=== PATIENT | female | born 1980 | race Caucasian/White ===

== ENCOUNTER 2022-10-14 20:31 | Observation (INO) | payer OTHER, SELFPAY ==
[2022-10-14 19:54] VITALS: BP 100/58; PULSE 70; RESP 19; TEMP 36.6; O2SAT 99; BMI 46.2
[2022-10-14 20:37] LABS: Microscopic, Urine URINE MICROSCOPIC (MICROSCOPIC)
[2022-10-14 20:45] LABS: Appearance,Urine CLEAR (Clear); Bilirubin,Urine Negative (Negative); Blood, Urine Negative (Negative); Color,Urine YELLOW (Yellow); Glucose,Urine (UA) Negative (Negative); Ketones,Urine TRACE (Negative); Leukocyte Esterase,Urine TRACE (Negative); Nitrate,Urine Negative (Negative); Protein,Urine Negative (Negative); Specific Gravity, Urine 1.025 (1.005-1.030)
--- NOTE | 2022-10-14 20:46 | XR_ITS ---
PROCEDURE INFORMATION: Exam: XR Left Knee Exam date and time: 10/14/2022 8:58 PM Age: 42 years old Clinical indication: Injury or trauma; Fall; Blunt trauma; Patient HX: Patient fell on bleachers. Left knee pain and redness. TECHNIQUE: Imaging protocol: Radiologic exam of the Left knee. Views: 1 or 2 views. COMPARISON: No relevant prior studies available. FINDINGS: Bones/joints: No fracture or dislocation. There is mild narrowing of the medial compartment. No joint effusion. Soft tissues: No radiopaque foreign body or soft tissue gas. IMPRESSION: No acute findings.
[2022-10-14 20:57] LABS: Barbiturates Screen,Urine Negative ng/ml (<200); Benzodiazepines Screen,Urine Negative ng/ml (<200)
[2022-10-14 20:58] LABS: Amphetamine/Metha Screen,Urine Negative ng/ml (<1000)
[2022-10-14 20:59] LABS: Cocaine Screen,Urine Negative ng/ml (<300); Methadone Screen,Urine Negative ng/ml (<300)
[2022-10-14 21:00] LABS: Cannabinoid Screen,Urine Negative ng/ml (<50)
[2022-10-14 21:01] LABS: Opiate Screen,Urine Negative ng/ml (<300); Phencyclidine Screen,Urine Negative ng/ml (<25)
[2022-10-14 21:49] LABS: Bacteria,Urine 1+ /lpf; Mucus,Urine 1+ /lpf; WBC,Urine Occasional #/hpf (0-3)
[2022-10-14 21:56] LABS: Basophils # 0.1 K/mm3 (0-0.2); Basophils % 1.9 % (0.1-2.0); Eosinophils # 0.1 K/mm3 (0.0-0.4); Eosinophils % 1.2 % (0.1-12.0); Hematocrit 39.2 % (37.0-47.0); Hemoglobin 12.4 g/dL (12.2-16.2); Lymphocytes # 1.3 K/mm3 (0.7-4.5); Lymphocytes % 18.5 % (10-50); Mean Corpuscular HGB Conc 31.7 g/dL (31.8-35.4); Mean Corpuscular Hemoglobin 30.6 pg (27.0-31.2); Mean Corpuscular Volume 96.6 fl (81-99); Mean Platelet Volume 8.3 fl (7.4-10.4); Monocytes # 0.4 K/mm3 (0.1-1.0); Monocytes % 6.2 % (1.7-9.3); Neutrophils # 4.9 K/mm3 (1.8-7.8); Neutrophils % 72.2 % (37.0-80.0); Platelet Count 204 K/mm3 (142-424); Red Blood Count 4.06 M/mm3 (4.20-5.40); Red Cell Distribution Width 13.6 % (11.5-17.5); White Blood Count 6.8 K/mm3 (4.8-10.8)
[2022-10-14 22:17] LABS: Coronavirus 19, PCR Not Detected (NotDetected); Influenza A, PCR Not Detected (NotDetected); Influenza B, PCR Not Detected (NotDetected)
[2022-10-14 22:28] LABS: Fetal Membrane Rupture (Rapid) Negative (Negative)
[2022-10-15 04:23] VITALS: BP 123/60; PULSE 81; RESP 19; TEMP 36.6; O2SAT 97
--- NOTE | 2022-10-15 07:00 | US_ITS ---
FINAL REPORT CLINICAL HISTORY: Fall yesterday FINDINGS: There is a single live intrauterine gestation. Presentation is breech. The cervix is closed and measures 2.76. Placenta is posterior grade 2. Amniotic fluid is 15.06 cm. Heart rate is detected at 136 beats per minute. Fetus is active. Other anatomy is seen as well. MEASUREMENTS: ULTRASOUND AGE: 31 weeks 6 days. GESTATION AGE: 31 weeks 4 days. ESTIMATED WEIGHT: 1884 g GROWTH PERCENTILE: 53 % BPD: 7.85 cm corresponding to 31 weeks 4 days. OFD: 10.29 cm corresponding to 32 weeks 0 days. HC: 28.75 cm corresponding to 31 weeks 5 days. AC: 28.58 cm corresponding to 32 weeks 5 days. FL: 6.02 cm corresponding to 31 weeks 3 days. HC/AC: 1.01 CI: 76% FL/BPD: 77% FL/AC: 21% BREATHIN MOVEMENT: 2 TONE: 2 FLUID VOLUME: 2 BPP SCORE: 6 IMPRESSION: Single living IUP with an ultrasound age of 31 weeks 6 days. BPP SCORE: 6/8 Reviewed, Interpreted and Dictated by Mando Bal MD Transcribed by Nevaeh Johnson Authenticated and [facility]
--- NOTE | 2022-10-15 07:41 | HMH.PHAINT1 ---
Pharmacy Intervention Comments: MEDICATION RECONCILIATION COMPLETED ON PATIENT USING EXTERNAL FILL HISTORY FROM PHARMACY. -FANTASMA MCDUFFIE, APTRICIAD
--- NOTE | 2022-10-15 08:53 | EXP.HPDC ---
General Admission date:: 10/14/22 Discharge date: 10/15/22 *Admission Date: 10/14/22 *Chief complaint: Fall, knee pain, decreased movement *History of present illness: Mrs. Cata Guzman is a 42 yo at 31w3d, with [place] 12/13/22, admitted to [facility] for observation secondary to fall on 10/14/22 at 1830. She is an unattached patiente. She follows with a provider in [place]. She reports she was at a basketball game and fell down to rows of bleachers to the ground below. She hit her abdomen and left knee. She admits movement was decreased after the fall. She denies vaginal bleeding. Contractions started after arrival to L&D. She received Brethine x 1 dose. She states contractions have resolved. She admits to a small amount of spotting after vaginal exam. She is now feeling baby move. Her knee is sore and bruised but she admits to full range of motion. She admits to history of gestational diabetes with last . She states she passed her 1 hr GTT this but AMAURI is high and baby's abdomen is measuring larger so she is checking her BS. She has history of x 1 and elective x 1. Denies history of PIH. She has hypothyroidism and takes Levothyroxine daily. [facility] Medical History Fall Morbid obesity with BMI of 45.0-49.9, adult contractions Surgical History History of Social History Smoking Status: Light tobacco smoker tobacco type: cigarettes (1 or 2 cigarettes per day) alcohol intake: never current occupational status: employed Travel in the last 8 weeks: None Review of Systems Review of Systems Review of systems:: pertinent systems reviewed and negative unless documented below *Gastrointestinal Comments: + contractions Exam Data for Last 24 hours Vital signs and Labs for Last 24 Hours: Temp Pulse Resp BP Pulse Ox 97.9 F 81 19 123/60 97 10/15/22 04:23 10/15/22 04:23 10/15/22 04:23 10/15/22 04:23 10/15/22 04:23 Laboratory Results - last 24 hr 10/14/22 19:56: Urine Color Yellow, Urine Appearance Clear, Urine pH 7.0, Ur Specific [place] 1.025, Urine Protein Negative, Urine Glucose (UA) Negative, Urine Ketones Trace, Urine Blood Negative, Urine Nitrate Negative, Urine Bilirubin Negative, Urine Urobilinogen 2.0, Ur Leukocyte Esterase Trace, Urine WBC Occasional, Ur Squamous Epith Cells 3-5, Urine Bacteria 1+, Urine Mucus 1+ 10/14/22 19:56: Urine Opiates Screen Negative, Urine Methadone Screen Negative, Ur Barbituates Screen Negative, Ur Phencyclidine Scrn Negative, Ur Amphetamines Screen Negative, U Benzodiazepines Scrn Negative, Urine Cocaine Screen Negative, U Marijuana (THC) Screen Negative 10/14/22 21:37: WBC 6.8, RBC 4.06 L, Hgb 12.4, Hct 39.2, MCV 96.6, MCH 30.6, MCHC 31.7 L, RDW 13.6, Plt Count 204, MPV 8.3, Neut % (Auto) 72.2, Lymph % (Auto) 18.5, [place] % (Auto) 6.2, Eos % (Auto) 1.2, Baso % (Auto) 1.9, Neut # (Auto) 4.9, Lymph # (Auto) 1.3, [place] # (Auto) 0.4, Eos # (Auto) 0.1, Baso # (Auto) 0.1 10/14/22 21:52: Membrane Rupture Negative 10/14/22 21:52: SARS-CoV-2 (PCR) Not detected, Influenza A Untype (PCR) Not detected, Influenza Type B (PCR) Not detected I & O for Last 24 hours: Intake & Output 10/12/22 10/13/22 10/14/22 10/15/22 23:59 23:59 23:59 23:59 Weight 278 lb Constitutional Constitutional: no acute distress, morbidly obese and cooperative *Routine HEENT Exam Head: Present normocephalic and atraumatic Eye: Absent conjunctivae pink ENT: Present mucous membranes moist *Routine Neck Exam Neck: Present full ROM *Routine Respiratory Exam Respiratory: Present CTA bilaterally and normal respiratory effort *Routine Cardiovascular Exam Cardiovascular: Present RRR *Routine Abdominal Exam Abdominal: Present soft (Gravid) and obese; Absent tend
== END 2022-10-15 11:16 | disposition home or self-care (01) ==
LOC: OBOUT 20:36 → OB 10-15 03:32
PROVIDERS: Admitting Provider Obstetrics & Gynecology; Visit Provider Obstetrics & Gynecology
DX: O36.8130 Decreased fetal movements, third trimester, not applicable or unspecified (principal); Z3A.31 31 weeks gestation of pregnancy; W10.8XXA Fall (on) (from) other stairs and steps, initial encounter; Y92.39 Other specified sports and athletic area as the place of occurrence of the external cause; O24.415 Gestational diabetes mellitus in pregnancy, controlled by oral hypoglycemic drugs
CPT/HCPCS: 59025; 73560; 76819; 80305; 81001; 84112; 85025; 96360; 96361; 96372; C9803; G0378; U0003; U0005

== ENCOUNTER 2023-04-27 10:29 | Emergency (ER) | payer OTHER, SELFPAY ==
[2023-04-27 10:30] VITALS: BP 140/98; PULSE 99; RESP 16; TEMP 36.8; O2SAT 100; BMI 41.3
[2023-04-27 10:50] LABS: Apearance,Urine Clear (Clear); Blood, Urine Trace (Negative); Color,Urine Yellow (Yellow); Glucose,Urine (UA) Negative (Negative); Ketones,Urine Negative (Negative); Protein,Urine Negative (Negative); Specific Gravity, Urine 1.015 (1.005-1.030)
[2023-04-27 10:51] LABS: Bilirubin,Urine Negative (Negative); UTC Leukocyte Esterase,Urine Negative (Negative); UTC Nitrate,Urine Negative (Negative); Urobilinogen,Urine 0.2 EU/dl (0.2)
--- NOTE | 2023-04-27 10:51 | EXP.UTC ---
Discharge Plan Disposition Patient Disposition: Home, Self-Care Condition: Good Prescriptions Prescriptions: New nitrofurantoin monohyd/m-cryst [Macrobid] 100 mg capsule 100 mg PO Q12H 5 Days Qty: 10 0RF Rx Instructions: must administer with a meal/food phenazopyridine [Pyridium] 200 mg tablet 200 mg PO Q8H 2 Days Qty: 6 0RF No Action metformin 500 mg tablet 500 mg PO BID pantoprazole 20 mg tablet,delayed release (DR/EC) 20 mg PO DAILY trazodone 150 mg tablet 75 mg PO HSP PRN (Reason: Sleep) aspirin 81 mg Capsule 81 mg PO DAILY fluoxetine 40 mg capsule 40 mg PO DAILY levothyroxine 88 mcg tablet 88 mcg PO DAILY hydroxyzine pamoate 25 mg capsule 25 mg PO HSP PRN (Reason: Sleep) PNV cmb#95-ferrous fumarate-FA [] 28 mg iron- 800 mcg Tablet 1 tab PO DAILY Referrals Follow up/Referrals: Angi Berry APRN [Primary Care Provider] - See instructions Activity Restrictions/Add. Instructions Additional Instructions/Restrictions: *Increase fluids. Water not Soda or Tea *Start antibiotic immediately and be sure to take as ordered for the FULL length of time although you should start to see improvement over the next 48 hours *Pyridium as needed Remember this medication will turn your urine . This is normal but it will stain what ever it gets on *You should not use Pyridium for more than 48 hours. If so , follow up with your primary physician to review urine culture and ensure that antibiotic is adequate for infection *Be SURE to follow up anytime for new or worsening symptoms with your family doctor. AND in 48 hours for urine culture results with your family doctor, if you do not have a doctor then you may call back to the [facility] for urine culture results and further treatment. We do recommend that you choose and establish care with a Primary Care Physician. ?AND follow up with them ?in 10-14 days to repeat UA to ensure infection is resolved and blood no longer present *Be sure to let your PCP know that we sent urine cultures from the [facility] so they can follow up to ensure that you area the on the correct antibiotic Call your doctor office and make appointment for 48 hours (2 days from today) ?to follow up and get the results of your urine culture and further treatment Clinical Impressions Clinical Impression: UTI symptoms Instructions Patient Instructions: Nitrofurantoin, Phenazopyridine Discharge ED Provider: Shonda Murphy [facility] [place] HPI General Stated complaint: burning sensatiom when urinating Mode of Arrival: Ambulatory Source of Information: Patient Limitations: No Limitations Time Seen by Provider: 04/27/23 10:52 Description of Symptoms (Recalled from Triage Doc. by RN): Patient reports uti symptoms. Complaint of burning and pressure when urinating. HEENT Symptoms (Recalled from RN notes): No Resp Symptoms (Recalled from RN notes): No Skin Symptoms (Recalled from RN notes): No MS Symptoms (Recalled from RN notes): No Functional Status (Recalled from RN notes): wnl History of Present Illness Provider Complaint: Patient states that she use to get UTI frequently but hasnt had one in a while States that she has been having urgency and frequency for several days and woke up this morning with burning with urination and feels like it does when she has UTI and wanted to get it treated before it got too bad Related Data Home Medications Medication Instructions Recorded Confirmed metformin 500 mg tablet 500 mg PO BID Diabetes 08/26/21 10/15/22 aspirin 81 mg capsule 81 mg PO DAILY HEART HEALTH 10/14/22 10/14/22 pantoprazole 20 mg tablet,delayed 20 mg PO DAILY GERD 10/14/22 10/14/22 release trazodone 150 mg tablet 75 mg PO HSP PRN Sleep 10/14/22 10/15/22 fluoxetine 40 mg capsule 40 mg PO DAILY MOOD 10/15/22 10/15/22 hydroxyzine pamoate 25 mg capsule 25 mg PO HSP PRN Sleep 10/15/22 10/15/22 levothyroxine 88 mcg tablet 88 mcg PO DAILY THYROID 10/15/22 10/15/22
[2023-04-27 11:02] VITALS: BP 140/98; PULSE 99; RESP 16; TEMP 36.8; O2SAT 100
== END 2023-04-27 11:03 | disposition home or self-care (01) ==
PROVIDERS: Emergency Provider Nurse Practitioner; PCP Nurse Practitioner Family
DX: R30.0 Dysuria (principal); R35.0 Frequency of micturition; R39.15 Urgency of urination; E66.01 Morbid (severe) obesity due to excess calories; F17.210 Nicotine dependence, cigarettes, uncomplicated
CPT/HCPCS: 81003; 87086; 99204; 99212; G0463

== ENCOUNTER 2023-07-17 17:12 | Emergency (ER) | payer OTHER, SELFPAY ==
[2023-07-17 17:45] VITALS: BP 128/94; PULSE 70; RESP 14; TEMP 36.7; O2SAT 95; BMI 39.5
--- NOTE | 2023-07-17 18:11 | EXP.UTC ---
Discharge Plan Disposition Patient Disposition: Home, Self-Care Condition: Good Prescriptions Prescriptions: New cefdinir 300 mg capsule 300 mg PO BID Qty: 20 0RF phenazopyridine [Pyridium] 200 mg tablet 200 mg PO Q8H 2 Days Qty: 6 0RF No Action metformin 500 mg tablet 500 mg PO BID pantoprazole 20 mg tablet,delayed release (DR/EC) 20 mg PO DAILY trazodone 150 mg tablet 75 mg PO HSP PRN (Reason: Sleep) aspirin 81 mg Capsule 81 mg PO DAILY fluoxetine 40 mg capsule 40 mg PO DAILY levothyroxine 88 mcg tablet 88 mcg PO DAILY hydroxyzine pamoate 25 mg capsule 25 mg PO HSP PRN (Reason: Sleep) PNV cmb#95-ferrous fumarate-FA [] 28 mg iron- 800 mcg Tablet 1 tab PO DAILY nitrofurantoin monohyd/m-cryst [Macrobid] 100 mg capsule 100 mg PO Q12H 5 Days Qty: 10 0RF Rx Instructions: must administer with a meal/food phenazopyridine [Pyridium] 200 mg tablet 200 mg PO Q8H 2 Days Qty: 6 0RF Referrals Follow up/Referrals: Angi Berry APRN [Primary Care Provider] - See instructions Activity Restrictions/Add. Instructions Additional Instructions/Restrictions: Stop macrobid and start the Cefdinir *Increase fluids. Water not Soda or Tea *Start antibiotic immediately and be sure to take as ordered for the FULL length of time although you should start to see improvement over the next 48 hours *Pyridium as needed Remember this medication will turn your urine . This is normal but it will stain what ever it gets on *You should not use Pyridium for more than 48 hours. If so , follow up with your primary physician to review urine culture and ensure that antibiotic is adequate for infection *Be SURE to follow up anytime for new or worsening symptoms with your family doctor. AND in 48 hours for urine culture results with your family doctor, if you do not have a doctor then you may call back to the [facility] for urine culture results and further treatment. We do recommend that you choose and establish care with a Primary Care Physician. ?AND follow up with them ?in 10-14 days to repeat UA to ensure infection is resolved and blood no longer present *Be sure to let your PCP know that we sent urine cultures from the [facility] so they can follow up to ensure that you area the on the correct antibiotic Call your doctor office and make appointment for 48 hours (2 days from today) ?to follow up and get the results of your urine culture and further treatment Clinical Impressions Clinical Impression: UTI (urinary tract infection) Qualifiers: Urinary tract infection type: site unspecified Hematuria presence: with hematuria Qualified Code(s): N39.0 - Urinary tract infection, site not specified; R31.9 - Hematuria, unspecified Stand Alone Forms Stand Alone Forms: Work/School Release Instructions Patient Instructions: DI for Urinary Tract Infection (UTI), Cefdinir Discharge ED Provider: Shonda Murphy [facility] [place] General Stated complaint: painful urination Mode of Arrival: Ambulatory Source of Information: Patient Limitations: No Limitations Time Seen by Provider: 07/17/23 18:11 Description of Symptoms (Recalled from Triage Doc. by RN): PATIENT C/O BURNING AND DISCOMFORT TO VAGINAL AREA HEENT Symptoms (Recalled from RN notes): No Resp Symptoms (Recalled from RN notes): No Skin Symptoms (Recalled from RN notes): No MS Symptoms (Recalled from RN notes): No Functional Status (Recalled from RN notes): WNL History of Present Illness Provider Complaint: Patient states that she has been having itching and burning in her vaginal area State that she is on nitrofurantoin for UTI and she has taken two diflucan but still having itching and burning in her vaginal area Related Data Home Medications Medication Instructions Recorded Confirmed metformin 500 mg tablet 500 mg PO BID Diabetes 08/26/21 10/15/22 aspirin 81 mg capsule 81 mg PO DAILY HEART HEALTH 10/14/22 10/14/22 yessy
[2023-07-17 18:32] LABS: Microscopic, Urine URINE MICROSCOPIC (MICROSCOPIC)
[2023-07-17 18:46] VITALS: BP 128/94; PULSE 70; RESP 14; TEMP 36.7; O2SAT 95
[2023-07-17 18:51] LABS: Appearance,Urine Cloudy (Clear); Blood, Urine 1+ (Negative); Color,Urine Yellow (Yellow); Glucose,Urine (UA) Negative (Negative); Ketones,Urine Trace (Negative); Nitrate,Urine Negative (Negative); Protein,Urine 1+ (Negative)
[2023-07-17 18:52] LABS: Bilirubin,Urine 1+ (Negative); Leukocyte Esterase,Urine 1+ (Negative)
[2023-07-17 18:54] LABS: Bacteria,Urine Trace /lpf; RBC,Urine Occasional #/hpf (0-3); WBC,Urine Occasional #/hpf (0-3)
== END 2023-07-17 18:49 | disposition home or self-care (01) ==
PROVIDERS: Emergency Provider Nurse Practitioner; PCP Nurse Practitioner Family
DX: N39.0 Urinary tract infection, site not specified (principal); R31.9 Hematuria, unspecified; F17.210 Nicotine dependence, cigarettes, uncomplicated; E66.01 Morbid (severe) obesity due to excess calories; Z68.42 Body mass index [BMI] 45.0-49.9, adult
CPT/HCPCS: 81001; 87086; 99212; 99214; G0463

== ENCOUNTER 2024-01-11 07:14 | Emergency (ER) | payer BC, SELFPAY ==
[2024-01-11] VITALS (7 sets, daily range): BP systolic 99–139; BP diastolic 47–88; PULSE 100–118; RESP 17–20; TEMP 36.6–36.7; O2SAT 94–98; BMI 43.2
--- NOTE | 2024-01-11 07:16 | ECG_ITS ---
APPROVED REPORT Exam: Resting ECG HR:104 bpm ECG Measurements Heart Rate 104 AXES GA 155 P 56 QRSd 85 QRS 0 QT 339 T 54 QTc 399 Conclusion SINUS TACHYCARDIA MINIMAL VOLTAGE CRITERIA FOR LVH, CONSIDER NORMAL VARIANT [MEETS CRITERIA IN ONE OF: R(aVL), S(V1), R(V5), R(V5/V6)+S(V1)] ABNORMAL RHYTHM ECG UNCONFIRMED REPORT Electronically signed by : Duane Alonso MD 01/11/2024 19:59:56
--- NOTE | 2024-01-11 07:19 | HMH.EDGENADL ---
Discharge Plan Disposition Patient Disposition: Home, Self-Care Condition: Good Prescriptions Prescriptions: New dexamethasone 6 mg tablet 6 mg PO ONCE Qty: 1 0RF oseltamivir [Tamiflu] 75 mg capsule 75 mg PO DAILY 35 Days Qty: 35 0RF albuterol sulfate 90 mcg/actuation HFA aerosol inhaler 4 inh inhalation Q4H PRN (Reason: shortness of breath or wheezing) Qty: 8.5 0RF Rx Instructions: until breathing returns to target peak flow/parameters No Action metformin 500 mg tablet 500 mg PO BID cefdinir 300 mg capsule 300 mg PO BID Qty: 20 0RF phenazopyridine [Pyridium] 200 mg tablet 200 mg PO Q8H 2 Days Qty: 6 0RF pantoprazole 20 mg tablet,delayed release (DR/EC) 20 mg PO DAILY trazodone 150 mg tablet 75 mg PO HSP PRN (Reason: Sleep) aspirin 81 mg Capsule 81 mg PO DAILY fluoxetine 40 mg capsule 40 mg PO DAILY levothyroxine 88 mcg tablet 88 mcg PO DAILY hydroxyzine pamoate 25 mg capsule 25 mg PO HSP PRN (Reason: Sleep) PNV cmb#95-ferrous fumarate-FA [] 28 mg iron- 800 mcg Tablet 1 tab PO DAILY nitrofurantoin monohyd/m-cryst [Macrobid] 100 mg capsule 100 mg PO Q12H 5 Days Qty: 10 0RF Rx Instructions: must administer with a meal/food phenazopyridine [Pyridium] 200 mg tablet 200 mg PO Q8H 2 Days Qty: 6 0RF Referrals Follow up/Referrals: Pearl Hernandez APRN [Primary Care Provider] - See instructions Activity Restrictions/Add. Instructions Additional Instructions/Restrictions: Please return to the emergency department if you experience any new or worsening symptoms. Clinical Impressions Clinical Impression: Influenza Stand Alone Forms Stand Alone Forms: Work/School Release Discharge ED Provider: Javed Giordano General Adult HPI General Chief complaint: Shortness of Breath/Dyspnea Stated complaint: chest pain Time Seen by Provider: 01/11/24 07:22 History of Present Illness HPI narrative: Patient reports shortness of breath, fevers, sore throat, discomfort on her chest wall with coughing, later describes this more as substernal however nonradiating chest pain. Has not had similar symptoms in the past. Has exposures both to COVID and influenza. Has had decreased p.o. intake due to lack of appetite but no nausea or vomiting. No abdominal pain. No leg pain or leg swelling. No OCP use. Patient is a smoker but is felt too ill to smoke. Pain is nonpleuritic. Symptoms began 24 hours ago Related Data Home Medications Medication Instructions Recorded Confirmed metformin 500 mg tablet 500 mg PO BID Diabetes 08/26/21 10/15/22 aspirin 81 mg capsule 81 mg PO DAILY HEART HEALTH 10/14/22 10/14/22 pantoprazole 20 mg tablet,delayed 20 mg PO DAILY GERD 10/14/22 10/14/22 release trazodone 150 mg tablet 75 mg PO HSP PRN Sleep 10/14/22 10/15/22 fluoxetine 40 mg capsule 40 mg PO DAILY MOOD 10/15/22 10/15/22 hydroxyzine pamoate 25 mg capsule 25 mg PO HSP PRN Sleep 10/15/22 10/15/22 levothyroxine 88 mcg tablet 88 mcg PO DAILY THYROID 10/15/22 10/15/22 vit no.95-ferrous 1 tab PO DAILY Supplement 10/15/22 10/15/22 fumarate 28 mg-folic acid 800 mcg tablet () Previous Rx's Medication Instructions Recorded nitrofurantoin 100 mg PO Q12H 5 days #10 caps 04/27/23 monohydrate/macrocrystals 100 mg capsule (Macrobid) phenazopyridine 200 mg tablet 200 mg PO Q8H pain 2 days #6 tabs 04/27/23 (Pyridium) cefdinir 300 mg capsule 300 mg PO BID #20 caps 07/17/23 phenazopyridine 200 mg tablet 200 mg PO Q8H pain 2 days #6 tabs 07/17/23 (Pyridium) albuterol sulfate 90 mcg/actuation 4 inh inhalation Q4H PRN shortness 01/11/24 aerosol inhaler of breath or wheezing #8.5 grams dexamethasone 6 mg tablet 6 mg PO ONCE #1 tab 01/11/24 oseltamivir 75 mg capsule (Tamiflu) 75 mg PO DAILY 5 weeks #35 caps 01/11/24 Allergies Allergy/AdvReac Type Severity Reaction Status Date / Time No Known Allergies Allergy Verified 01/11/24 07:32 [facility] Disclaimer: The information contained in this section may have been updated after the patient was seen, as this information can be updated by other users. Medical History Fall Morbid obesity with BMI of 45.0-49.9, adult contractions Surgical History History of Social History Smoking Status: Current every day smoker tobacco type: cigarettes (1 or 2 cigarettes per day) alcohol intake: never current occupational status: employed Travel in the last 8 weeks: None ROS Obtained: Yes Systems reviewed as appropriate & no additional complaints except as documented As per HPI Physical Exam General General appearance: alert Comment: Uncomfortable appearing but nontoxic, tearful Head Head exam: atraumatic and normocephalic Eye Eye exam: Present normal appearance Neck Neck exam: Present normal inspection Chest Chest inspection: Present normal inspection and symmetric chest wall rise Respiratory Respiratory exam: Present normal lung sounds bilaterally; Absent respiratory distress Cardiovascular Cardiovascular exam: Present regular rate and normal rhythm Abdominal Exam Abdominal exam: Present soft Neurological Exam Neurological exam: Present alert and oriented X3 Psychiatric Psychiatric exam: Present normal affect and normal mood Skin Skin exam: Present warm and dry Medical Decision Making Medical Records Medical records reviewed: Yes I reviewed the patient's medical records. Anshul Inquiry Pt receiving controlled substance: No Vital Signs: 01/11/24 07:20 01/11/24 08:31 01/11/24 09:01 Temperature 98 F Temperature Source Oral Pulse Rate 101 H 118 H Pulse Rate [Right] 101 H Respiratory Rate 18 20 Blood Pressure 139/88 121/81 Blood Pressure [Right Arm] 133/73 Blood Pressure Mean 92 Blood Pressure Mean [Right Arm] 93 Blood Pressure Source [Right Arm] Automatic Cuff Blood Pressure Position [Right Arm] Sitting 02 Sat by Pulse Oximetry 98 96 94 L Oxygen Delivery Method Room Air Room Air 01/11/24 09:34 01/11/24 10:01 01/11/24 10:30 Temperature Temperature Source Pulse Rate 110 H 107 H 103 H Pulse Rate [Right] Respiratory Rate 20 20 20 Blood Pressure 132/83 99/47 L 118/84 Blood Pressure [Right Arm] Blood Pressure Mean 95 64 95 Blood Pressure Mean [Right Arm] Blood Pressure Source [Right Arm] Blood Pressure Position [Right Arm] 02 Sat by Pulse Oximetry 96 98 97 Oxygen Delivery Method 01/11/24 11:13 Temperature 98.0 F Temperature Source Pulse Rate 100 H Pulse Rate [Right] Respiratory Rate 17 Blood Pressure 114/73 Blood Pressure [Right Arm] Blood Pressure Mean Blood Pressure Mean [Right Arm] Blood Pressure Source [Right Arm] Blood Pressure Position [Right Arm] 02 Sat by Pulse Oximetry Oxygen Delivery Method Lab Data Lab Results 01/11/24 07:18: WBC 5.2, RBC 4.53, Hgb 14.4, Hct 44.6, MCV 98.4, MCH 31.7 H, MCHC 32.2, RDW 13.8, Plt Count 177, MPV 7.7, Neut % (Auto) 83.8 H, Lymph % (Auto) 8.0 L, [place] % (Auto) 7.4, Eos % (Auto) 0.4, Baso % (Auto) 0.3, Neut # (Auto) 4.4, Lymph # (Auto) 0.4 L, [place] # (Auto) 0.4, Eos # (Auto) 0.0, Baso # (Auto) 0.0, D-Dimer 0.39, Sodium 138, Potassium 4.0, Chloride 107, Carbon Dioxide 24, Anion Gap 11.0, BUN 8, Creatinine 0.60, Estimated Creat Clear 111, Estimated GFR 110, Est GFR ( Amer) 133, Glucose 159 H, Calcium 8.5, Total Bilirubin 0.5, AST 49 H, ALT 60, Alkaline Phosphatase 62, Troponin I < 0.01, Total Protein 6.9, Albumin 4.2, Globulin 2.7, Albumin/Globulin Ratio 1.6, Lipase 47 01/11/24 07:20: SARS-CoV-2 (PCR) Not detected, Influenza A Untype (PCR) Detected A, Influenza Type B (PCR) Not detected 01/11/24 09:18: Troponin I < 0.01 01/11/24 07:18 01/11/24 07:18 Orders (Tests/Meds): ED MEDICATIONS Discontinued Medications Generic Name Dose Route Start Last Admin Trade Name Freq PRN Reason Stop Dose Admin Albuterol/Ipratropium 3 ml 01/11/24 07:33 01/11/24 07:56 Ipratropium/Albuterol 3 Ml Neb IH 01/11/24 07:34 3 ml ONCE ONE Administration Belladonna Alkaloids 60 ml 01/11/24 07:56 01/11/24 08:35 Belladonna Alkaloids 60 Ml Ml PO 01/11/24 07:57 60 ml ONCE ONE Administration Lactated Ringer's 1,000 mls @ 999 mls/hr 01/11/24 07:33 01/11/24 07:56 Lactated Ringer's 1000 Ml Bag IV 01/11/24 08:33 999 mls/hr .Q1H1M ONE Administration Ketorolac Tromethamine 15 mg 01/11/24 07:33 01/11/24 07:56 Ketorolac 30mg/Ml Vial IV 01/11/24 07:34 15 mg ONCE ONE Administration Ondansetron HCl 4 mg 01/11/24 07:33 01/11/24 07:56 Ondansetron 4mg/2ml Vial IV 01/11/24 07:34 4 mg ONCE ONE Administration ORDERS Category Date Time Status XR chest 2V Stat Exams 01/11/24 07:34 Completed CBC w/Auto Diff [Complete Blood Count Auto Diff] Stat Lab 01/11/24 07:18 Completed CMP [Comprehensive Metabolic Panel] Stat Lab 01/11/24 07:18 Completed D-Dimer Stat Lab 01/11/24 07:18 Completed Lipase Stat Lab 01/11/24 07:18 Completed Rapid PCR Covid and Flu A/B Stat Lab 01/11/24 07:20 Completed Troponin I Q2H Lab 01/11/24 07:18 Completed Troponin I Q2H Lab 01/11/24 09:18 Completed ECG initial [place] Routine Y 01/11/24 07:16 Completed HEART Score History (anamnesis): Slightly suspicious ECG: Non-specific disturbance Age: <45 years Risk factors: 1-2 risk factors Troponin: </= normal limit HEART Score: 2 Medical Decision Narrative: Patient with history and exam per above presenting for evaluation of shortness of breath, chest wall discomfort, upper respiratory symptoms Diagnoses considered include ACS, PE, pneumonia, GERD, costochondritis, upper respiratory infection ED workup and treatment included: ED MEDICATIONS Discontinued Medications Generic Name Dose Route Start Last Admin Trade Name Freq PRN Reason Stop Dose Admin Albuterol/Ipratropium 3 ml 01/11/24 07:33 01/11/24 07:56 Ipratropium/Albuterol 3 Ml Neb 01/11/24 07:34 3 ml ONCE ONE Administration Belladonna Alkaloids 60 ml 01/11/24 07:56 01/11/24 08:35 Belladonna Alkaloids 60 Ml Ml PO 01/11/24 07:57 60 ml ONCE ONE Administration Lactated Ringer's 1,000 mls @ 999 mls/hr 01/11/24 07:33 01/11/24 07:56 Lactated Ringer's 1000 Ml Bag IV 01/11/24 08:33 999 mls/hr .Q1H1M ONE Administration Ketorolac Tromethamine 15 mg 01/11/24 07:33 01/11/24 07:56 Ketorolac 30mg/Ml Vial IV 01/11/24 07:34 15 mg ONCE ONE Administration Ondansetron HCl 4 mg 01/11/24 07:33 01/11/24 07:56 Ondansetron 4mg/2ml Vial IV 01/11/24 07:34 4 mg ONCE ONE Administration ORDERS Category Date Time Status XR chest 2V Stat Exams 01/11/24 07:34 Completed CBC w/Auto Diff [Complete Blood Count Auto Diff] Stat Lab 01/11/24 07:18 Completed CMP [Comprehensive Metabolic Panel] Stat Lab 01/11/24 07:18 Completed D-Dimer Stat Lab 01/11/24 07:18 Completed Lipase Stat Lab 01/11/24 07:18 Completed Rapid PCR Covid and Flu A/B Stat Lab 01/11/24 07:20 Completed Troponin I Q2H Lab 01/11/24 07:18 Completed Troponin I Q2H Lab 01/11/24 09:18 Completed ECG initial [place] Routine Y 01/11/24 07:16 Completed Labs were independently interpreted by me, significant for influenza positive, D-dimer within normal limits, troponins undetectable x 2 Patient's EKG was independently visualized and interpreted by me significant for normal sinus rhythm, normal axis, no acute ST changes Imaging was independently visualized and interpreted by me, significant for no acute consolidative process. Please refer to radiology report for full details. My clinical impression at this time is most consistent with influenza Patient reported improvement of symptoms upon repeat evaluation. Will be prescribed Tamiflu after shared decision making I discussed my clinical impression with patient and answered all questions. At this time, the evidence for any other entities in the differential is insufficient to warrant any further testing or ED observation. This was explained to the patient. The patient was advised that persistent or worsening symptoms require further evaluation. I confirmed the patient's understanding of this discussion. Critical Care Critical Care Time Critical Care Time: No
--- NOTE | 2024-01-11 07:34 | XR_ITS ---
FINAL REPORT CLINICAL HISTORY: soa, cough, pain with coughing, smoker, COMPARISON: None FINDINGS: PA and lateral views of the chest were obtained. There is no prior exam for comparison. The cardiac and mediastinal silhouettes are within normal limits. The lungs are clear. There is no pleural effusion or pneumothorax. No acute osseous abnormality is identified. IMPRESSION: No radiographic evidence of acute cardiac or pulmonary disease. Reviewed, Interpreted and Dictated by Mercy Ramirez MD Transcribed by Fadumo Hill Authenticated and [facility]
[2024-01-11 07:38] LABS: Coronavirus 19, PCR Not Detected (NotDetected); Influenza B, PCR Not Detected (NotDetected)
[2024-01-11] MEDS: IPRATROPIUM/ALBUTEROL 3 ML NEB IH (07:56)
[2024-01-11] MEDS: KETOROLAC 30MG/ML VIAL 15 MG IV (07:56)
[2024-01-11] MEDS: LACTATED RINGERS 1000ML 1,000 ML 999 ML IV (07:56)
[2024-01-11] MEDS: ONDANSETRON 4MG/2ML VIAL 4 MG IV (07:56)
[2024-01-11 08:09] LABS: Alanine Aminotransferase 60 U/L (12-78); Albumin Level 4.2 g/dl (3.5-5.0); Albumin/Globulin Ratio 1.6 (1.1-1.8); Alkaline Phosphatase 62 U/L (38-126); Aspartate Amino Transferase 49 U/L (14-36); Bilirubin,Total 0.5 mg/dl (0.2-1.3); Blood Urea Nitrogen 8 mg/dl (7-17); Calcium 8.5 mg/dl (8.4-10.2); Carbon Dioxide 24 mmol/L (22.0-30.0); Chloride 107 mmol/L (98-107); Creatinine Clearance Estimated 111 mL/min (50-200); Estimated Glomerular Filt Rate 110 ml/min (>60); GFR (African American) 133 ML/MIN (>60); Globulin 2.7 g/dL (1.3-3.2); Glucose 159 mg/dl (74-100); Lipase 47 U/L (23-300); Sodium 138 mmol/L (136-145); Total Protein,Serum 6.9 g/dl (6.3-8.2)
[2024-01-11 08:12] LABS: Basophils % 0.3 % (0.1-2.0); Eosinophils % 0.4 % (0.1-12.0); Hematocrit 44.6 % (37.0-47.0); Hemoglobin 14.4 g/dL (12.2-16.2); Lymphocytes # 0.4 K/mm3 (0.7-4.5); Mean Corpuscular HGB Conc 32.2 g/dL (31.8-35.4); Mean Corpuscular Hemoglobin 31.7 pg (27.0-31.2); Mean Corpuscular Volume 98.4 fl (81-99); Mean Platelet Volume 7.7 fl (7.4-10.4); Monocytes # 0.4 K/mm3 (0.1-1.0); Monocytes % 7.4 % (1.7-9.3); Neutrophils # 4.4 K/mm3 (1.8-7.8); Neutrophils % 83.8 % (37.0-80.0); Platelet Count 177 K/mm3 (142-424); Red Blood Count 4.53 M/mm3 (4.20-5.40); Red Cell Distribution Width 13.8 % (11.5-17.5); White Blood Count 5.2 K/mm3 (4.8-10.8)
[2024-01-11 08:14] LABS: D-Dimer 0.39 ug/mL (0.0-0.5)
[2024-01-11 08:14] LABS: Influenza A, PCR Detected (NotDetected)
[2024-01-11 08:29] LABS: Troponin I < 0.01 ng/ml (0.00-0.034)
[2024-01-11] MEDS: BELLADONNA ALKALOIDS 60 ML ML PO (08:35)
--- NOTE | 2024-01-11 08:41 | PC.NURSE ---
Pt resting in bed. No needs or complaints voiced at this time. Call light within reach.
[2024-01-11 10:03] LABS: Troponin I < 0.01 ng/ml (0.00-0.034)
== END 2024-01-11 11:15 | disposition home or self-care (01) ==
PROVIDERS: Emergency Provider Emergency Medicine; PCP Nurse Practitioner
DX: J10.1 Influenza due to other identified influenza virus with other respiratory manifestations (principal); R07.89 Other chest pain; R06.02 Shortness of breath; R07.0 Pain in throat; R50.9 Fever, unspecified; R05.9 Cough, unspecified; F17.210 Nicotine dependence, cigarettes, uncomplicated
CPT/HCPCS: 71046; 80053; 83690; 84484; 85025; 85378; 87636; 93005; 96361; 96374; 96375; 99285; J2405

== ENCOUNTER 2025-09-03 19:03 | Emergency (ER) | payer SELFPAY ==
[2025-09-03 19:09] VITALS: BP 169/105; PULSE 95; RESP 18; TEMP 37.1; O2SAT 100; BMI 36.6
--- NOTE | 2025-09-03 19:17 | HMH.EDGENADL ---
Discharge Plan Disposition Patient Disposition: Home, Self-Care Condition: Good Prescriptions Prescriptions: New hydrocodone-acetaminophen 5-325 mg tablet 1 tab PO Q8H PRN (Reason: pain (scale score 7-10)) Qty: 3 0RF No Action metformin 500 mg tablet 500 mg PO BID cefdinir 300 mg capsule 300 mg PO BID Qty: 20 0RF phenazopyridine [Pyridium] 200 mg tablet 200 mg PO Q8H 2 Days Qty: 6 0RF pantoprazole 20 mg tablet,delayed release (DR/EC) 20 mg PO DAILY trazodone 150 mg tablet 75 mg PO HSP PRN (Reason: Sleep) aspirin 81 mg Capsule 81 mg PO DAILY fluoxetine 40 mg capsule 40 mg PO DAILY levothyroxine 88 mcg tablet 88 mcg PO DAILY hydroxyzine pamoate 25 mg capsule 25 mg PO HSP PRN (Reason: Sleep) PNV no.95-ferrous fumarate-FA [] 28 mg iron- 800 mcg Tablet 1 tab PO DAILY nitrofurantoin monohyd/m-cryst [Macrobid] 100 mg capsule 100 mg PO Q12H 5 Days Qty: 10 0RF Rx Instructions: must administer with a meal/food phenazopyridine [Pyridium] 200 mg tablet 200 mg PO Q8H 2 Days Qty: 6 0RF dexamethasone 6 mg tablet 6 mg PO ONCE Qty: 1 0RF oseltamivir [Tamiflu] 75 mg capsule 75 mg PO DAILY 35 Days Qty: 35 0RF albuterol sulfate 90 mcg/actuation HFA aerosol inhaler 4 inh inhalation Q4H PRN (Reason: shortness of breath or wheezing) Qty: 8.5 0RF Rx Instructions: until breathing returns to target peak flow/parameters Referrals Follow up/Referrals: Rosalee Duran DO [Staff Physician, JEWEL SETTER] - See instructions Referral Note: ovarian mass with atypical features identified in ER. Needs immediate follow-up, possible abdominal MRI or surgical evaluation Provider,Referral, MD [Primary Care Provider, Medical] - See instructions Activity Restrictions/Add. Instructions Additional Instructions/Restrictions: You were evaluated in the ER and are believed to be appropriate for discharge at this time. I have placed a referral to Dr. Duran for [employer] follow-up. Call her office first thing this morning to make an appointment for follow-up. Take Tylenol and ibuprofen together if needed for pain. Do not exceed the recommended dose on the bottle. Drink water and eat a small snack each time you take these medications to avoid side effects. If you have persistent pain you can take one of the hydrocodone that I prescribed, but I only want you to take these if your pain is stable, if your pain is worse than what brought you in tonight you need to immediately come to the ER, not try to mask your symptoms with the pain medications. Return to the ER with ANY new, worsening, or otherwise concerning symptoms as discussed. Do not hesitate to come back to the ER even if all you have is pain since your risk of torsion is increased with this mass. Clinical Impressions Clinical Impression: Mass of ovary, Abdominal pain Instructions Patient Instructions: DI for Acute Abdominal Pain Print Language Print Language: Nepali Discharge ED Provider: Yvan Cummins Adult HPI <SUMANTH Man - Last Filed: 09/03/25 22:28> General Chief complaint: Abdominal Pain Stated complaint: abdominal pain, nausea Time Seen by Provider: 09/03/25 19:16 Mode of Arrival: Ambulatory Source of Information: Patient Description of Symptoms (Recalled from ER Triage Doc. by RN): Pt presents for evaluation of LLQ abdominal pain that she has had for months, but became worse today while she was in the store. Has nausea, and has been constipated. Pt reports she has had a gastric bypass 1 year ago, and is concerned she may have a hernia History of Present Illness HPI narrative: 45-year-old female presents to the emergency department with multiple complaints most notable for diffuse abdominal pain concern for hernia , back pain, patient states that she has had ongoing abdominal pain for quite some time several months, worse over the last 2 weeks, especially today when she was in the store , she states that it was so bad it bit me over the shopping cart , and she began having some lightheadedness, also patient notes that she has been feeling flushed , over the last several days, with some waxing and waning chest pain , the left several days, no chest pain or shortness of breath currently, no fever or chills no cough no congestion, nausea no vomiting, does endorse constipation last bowel movement was today, however it was not very much , she also endorses urinary frequency, patient has any hematuria melena hematochezia hematemesis, denies any diarrhea, denies any hemoptysis, patient denies any alcohol tobacco or drug use. Of note patient has had a gastric sleeve surgery however she is unsure of if it was this year or last . Patient endorses prior Lap-Band surgery 2 years ago, all of her bariatric surgery was performed in [facility]. Other past medical history is consistent with LAURA/MDD, hypothyroidism, GERD. Initial triage vitals are unremarkable. Please note that above description of symptoms, in this electronic medical record under categorization of recalled from ER triage doctor by RN are reflective of an initial nursing assessment, however, is not reflective of my full history and physical exam that was personally taken and clarified. Consequentially, this preceding description of symptoms, which may include the patient's categorized chief complaint in the EMR, do not reflect my personal clinical impression, and the ultimate description of history of present illness and patient stated complaints should be deferred to this section of the note. Unless stated otherwise or congruent with this section of the note, additional signs, symptoms, or incongruence should be interpreted as inaccurate with my clinical impression. Onset (ago): week(s) Related Data Home Medications ?Medication ?Instructions ?Recorded ?Confirmed metformin 500 mg tablet 500 mg PO BID Diabetes 08/26/21 10/15/22 aspirin 81 mg capsule 81 mg PO DAILY HEART HEALTH 10/14/22 10/14/22 pantoprazole 20 mg tablet,delayed 20 mg PO DAILY GERD 10/14/22 10/14/22 release trazodone 150 mg tablet 75 mg PO HSP PRN Sleep 10/14/22 10/15/22 fluoxetine 40 mg capsule 40 mg PO DAILY MOOD 10/15/22 10/15/22 hydroxyzine pamoate 25 mg capsule 25 mg PO HSP PRN Sleep 10/15/22 10/15/22 levothyroxine 88 mcg tablet 88 mcg PO DAILY THYROID 10/15/22 10/15/22 vit no.95-ferrous 1 tab PO DAILY Supplement 10/15/22 10/15/22 fumarate 28 mg-folic acid 800 mcg tablet () Previous Rx's ?Medication ?Instructions ?Recorded nitrofurantoin 100 mg PO Q12H 5 days #10 caps 04/27/23 monohydrate/macrocrystals 100 mg capsule (Macrobid) phenazopyridine 200 mg tablet 200 mg PO Q8H pain 2 days #6 tabs 04/27/23 (Pyridium) cefdinir 300 mg capsule 300 mg PO BID #20 caps 07/17/23 phenazopyridine 200 mg tablet 200 mg PO Q8H pain 2 days #6 tabs 07/17/23 (Pyridium) albuterol sulfate 90 mcg/actuation 4 inh inhalation Q4H PRN shortness 01/11/24 aerosol inhaler of breath or wheezing #8.5 grams dexamethasone 6 mg tablet 6 mg PO ONCE #1 tab 01/11/24 oseltamivir 75 mg capsule (Tamiflu) 75 mg PO DAILY 5 weeks #35 caps 01/11/24 hydrocodone 5 mg-acetaminophen 325 1 tab PO Q8H PRN pain (scale score 10/25 mg tablet 7-10) #3 tabs Allergies Allergy/AdvReac Type Severity Reaction Status Date / Time No Known Allergies Allergy Verified 01/11/24 07:32 [facility] <SUMANTH Man - Last Filed: 09/03/25 22:28> [facility] Disclaimer: The information contained in this section may have been updated after the patient was seen, as this information can be updated by other users. Medical History Fall Morbid obesity with BMI of 45.0-49.9, adult contractions Surgical History History of Social History Smoking Status: Current every day smoker tobacco type: cigarettes (1 or 2 cigarettes per day) alcohol intake: never current occupational status: employed Travel in the last 8 weeks?: None Have you lived/traveled outside [place] in past 30 days?: No Contact w/someone who lives/traveled outside US past 30 days?: No Exposure to someone with infectious disease in past 14 days?: No Do you have a fever (greater than 100.4 F or 38 C)?: No Have you tested positive for COVID-19?: No Exposed to someone with COVID-19 in past 14 days?: No Do you have a sore throat?: No Do you have a cough?: No Do you have any weakness?: No Do you have any diarrhea?: No Are you experiencing any unusual bleeding?: No Do you have any muscle aches/pain?: No Do you have any abdominal pain?: Yes Are you experiencing loss of taste or smell?: No Other Medical History Have you received the Flu Vaccine for this season: No Have you received the Pneumonia Vaccine: No <SUMANTH Man - Last Filed: 09/03/25 22:28> ROS Obtained: Yes All systems reviewed & no additional complaints except as documented Physical Exam <SUMANTH Man - Last Filed: 09/03/25 22:28> General General appearance: alert and in no apparent distress Head Head exam: atraumatic and normocephalic Eye Eye exam: Present PERRL and EOMI ENT ENT exam: Present mucous membranes moist Neck Neck exam: Present normal inspection Chest Chest inspection: Present normal inspection and symmetric chest wall rise Respiratory Respiratory exam: Present normal lung sounds bilaterally; Absent respiratory distress Cardiovascular Cardiovascular exam: Present regular rate and normal rhythm Abdominal Exam Abdominal exam: Present soft and tenderness; Absent guarding, rebound or rigidity Abdominal tenderness: Present diffuse and mild Extremities Exam Extremities exam: Present normal inspection Neurological Exam Neurological exam: Present alert and oriented X3 Psychiatric Psychiatric exam: Present normal affect Skin Skin exam: Present warm and dry Medical Decision Making <SUMANTH Man - Last Filed: 09/03/25 22:28> Medical Records Medical records reviewed: Yes I reviewed the patient's medical records. Screening: Per USPSTF and CDC recommendations, given the prevalence of disease in our region, it is our hospital?s policy to screen for HIV and viral Hepatitis for all patients aged 18 and over and those with ongoing risk factors. Anshul Inquiry Pt receiving controlled substance: Yes Anshul was queried for this patient: No Reason not queried -: Emergent pt cond-no time Risks and benefits of using a controlled substance: were discussed with pt by me Vital Signs: 09/03/25 19:09 09/03/25 22:54 09/03/25 23:30 Temperature 98.7 F Temperature Source Oral Pulse Rate 58 L 64 Pulse Rate [Right] 95 H Respiratory Rate 18 Blood Pressure 142/91 H 112/79 Blood Pressure [Right Arm] 169/105 H Blood Pressure Mean [Right Arm] 126 Blood Pressure Source [Right Arm] Automatic Cuff Blood Pressure Position [Right Arm] Sitting 02 Sat by Pulse Oximetry 100 100 100 Oxygen Delivery Method Room Air Lab Data Lab results reviewed: Yes I reviewed the patient's lab results. Lab Results 09/03/25 19:29: WBC 6.5, RBC 4.54, Hgb 12.6, Hct 38.9, MCV 85.7, MCH 27.8, MCHC 32.4, RDW 12.8, Plt Count 288, MPV 9.4, Neut % (Auto) 56.1, Lymph % (Auto) 30.6, Warren % (Auto) 10.9 H, Eos % (Auto) 1.4, Baso % (Auto) 0.8, Neut # (Auto) 3.7, Lymph # (Auto) 2.0, Warren # (Auto) 0.7, Eos # (Auto) 0.1, Baso # (Auto) 0.1, Sodium 136, Potassium 3.9, Chloride 99, Carbon Dioxide 28, Anion Gap 12.9, BUN 8, Creatinine 0.70, Estimated Creat Clear 168, Estimated GFR 91, Est GFR ( Amer) 111, Glucose 70 L, Lactate 1.1, Calcium 8.7, Total Bilirubin 0.3, AST 36, ALT 29, Alkaline Phosphatase 64, Troponin I < 0.01, NT-Pro-B Natriuret Pep 20.3, Total Protein 7.6, Albumin 4.5, Globulin 3.1, Albumin/Globulin Ratio 1.5, Lipase 57 09/03/25 19:31: Urine Color Yellow, Urine Appearance Clear, Urine pH 5.5, Ur Specific Everson <= 1.005, Urine Protein Negative, Urine Glucose (UA) Negative, Urine Ketones Negative, Urine Blood Negative, Urine Nitrate Negative, Urine Bilirubin Negative, Urine Urobilinogen 0.2, Ur Leukocyte Esterase Negative, Ur Squamous Epith Cells Occasional, Urine Bacteria Trace 09/03/25 20:55: POC Glucose 116 H 09/03/25 19:29 09/03/25 19:29 Orders (Tests/Meds): ED MEDICATIONS Generic Name Dose Route Start Last Admin Trade Name Freq PRN Reason Stop Dose Admin Lactated Ringer's 1,000 mls @ 999 mls/hr 09/04/25 00:19 09/04/25 00:37 Lactated Ringer's 1000 Ml Bag IV 09/04/25 01:19 999 mls/hr .Q1H1M ONE Administration Sodium Chloride 10 ml 09/03/25 20:59 09/03/25 21:03 Sodium Chloride 0.9% 10ml Syr (Rad Only) IV 10/03/25 20:58 10 ml NEEDED PRN Administration Maintain IV Site Discontinued Medications Generic Name Dose Route Start Last Admin Trade Name Yobany PRN Reason Stop Dose Admin Acetaminophen 1,000 mg 09/04/25 00:19 09/04/25 00:37 Acetaminophen 500mg Tab PO 09/04/25 00:20 1,000 mg ONCE ONE Administration Glucose 15 gm 09/03/25 19:59 09/03/25 20:04 Dextrose 15gm Packet PO 09/03/25 20:00 15 gm ONCE ONE Administration Iopamidol 75 ml 09/03/25 20:59 09/03/25 21:03 Iopamidol-370 (76%);100ml Bottle IV 09/03/25 21:00 75 ml ONCE ONE Administration Ketorolac Tromethamine 15 mg 09/03/25 22:10 09/03/25 22:49 Ketorolac 15mg/Ml Vial IV 09/03/25 22:11 15 mg ONCE ONE Administration Morphine Sulfate 4 mg 09/03/25 19:31 09/03/25 19:50 Morphine 4mg/Ml Syringe IV 09/03/25 19:32 4 mg ONCE ONE Administration Ondansetron HCl 4 mg 09/03/25 19:31 09/03/25 19:46 Ondansetron 4mg/2ml Vial IV 09/03/25 19:32 4 mg ONCE ONE Administration Oxycodone HCl 5 mg 09/04/25 00:18 09/04/25 00:37 Oxycodone 5mg Immediate Release Tablet PO 09/04/25 00:19 5 mg ONCE ONE Administration ORDERS Category Date Time Status CT abdomen pelvis w con Stat Cat Scan 09/03/25 19:30 Completed US transvaginal Stat Exams 09/03/25 22:27 Completed Complete Blood Count Auto Diff Stat Lab 09/03/25 19:29 Completed Comprehensive Metabolic Panel Stat Lab 09/03/25 19:29 Completed Lactic Acid Stat Lab 09/03/25 19:29 Completed Lipase Stat Lab 09/03/25 19:29 Completed NT Pro Brain Natriuretic Pep. Stat Lab 09/03/25 19:29 Completed POC Glucose,Bedside Routine Lab 09/03/25 20:55 Completed Troponin I Q3H Lab 09/04/25 01:30 Ordered Troponin I Stat Lab 09/03/25 19:29 Completed Urinalysis and Microscopic Stat Lab 09/03/25 19:31 Completed Medical Decision Narrative: 45-year-old female presents the emergency department with multiple symptoms see HPI for detailed past medical history, differential diagnose include but not limited to, ileus, constipation, pancreatitis, diverticulitis, bowel obstruction, hernia, acute UTI, nephrolithiasis, ureterolithiasis, acute pyelonephritis among others. Will obtain basic laboratory studies, EKG, lactic acid lipase level proBNP troponin, urinalysis, CT abdomen pelvis with contrast, will give 4 mg IV morphine for pain and 4 mg of Zofran for nausea. CBC is unremarkable CMP is noted for hyperglycemia 70, no lactic acidosis, normal lipase, will give glucose gel 15 g for hypoglycemia. CMP is notable for normal troponin at less than 0.01, proBNP is within normal with lipase in normal labs. Lactic acid level within normal limits UA is grossly unremarkable. Repeat POC glucose is 116. Patient still complaining of some pain, will give 15 mg IV Toradol for pain, when discussing the patient's pain, patient states that she has a headache , and some neck pain , after the nurse getting morphine . Could be side effect of morphine administration. Thus will give IV Toradol as above. I reviewed the patient's CT head and pelvis with contrast along the corresponding radiologic report, anterior left midline infraumbilical trocar hernia in the pelvis contained small bowel without obstruction, there is a 4.6 cm right ovarian complex cystic mass consider sonogram for further evaluation, gastric bypass. Will obtain transvaginal ultrasound to rule out torsion and to further evaluate the patient's large ovarian cyst/mass on the right. I discussed this patient's case with the attending patient Dr. Cummins at shift change, he will be assuming the patient's care/workup, disposition is pending transvaginal ultrasound. <Yvan Cummins MD - Last Filed: 09/03/25 23:44> Vital Signs: 09/03/25 19:09 09/03/25 22:54 09/03/25 23:30 Temperature 98.7 F Temperature Source Oral Pulse Rate 58 L 64 Pulse Rate [Right] 95 H Respiratory Rate 18 Blood Pressure 142/91 H 112/79 Blood Pressure [Right Arm] 169/105 H Blood Pressure Mean [Right Arm] 126 Blood Pressure Source [Right Arm] Automatic Cuff Blood Pressure Position [Right Arm] Sitting 02 Sat by Pulse Oximetry 100 100 100 Oxygen Delivery Method Room Air Lab Data Lab Results 09/03/25 19:29: WBC 6.5, RBC 4.54, Hgb 12.6, Hct 38.9, MCV 85.7, MCH 27.8, MCHC 32.4, RDW 12.8, Plt Count 288, MPV 9.4, Neut % (Auto) 56.1, Lymph % (Auto) 30.6, Warren % (Auto) 10.9 H, Eos % (Auto) 1.4, Baso % (Auto) 0.8, Neut # (Auto) 3.7, Lymph # (Auto) 2.0, Warren # (Auto) 0.7, Eos # (Auto) 0.1, Baso # (Auto) 0.1, Sodium 136, Potassium 3.9, Chloride 99, Carbon Dioxide 28, Anion Gap 12.9, BUN 8, Creatinine 0.70, Estimated Creat Clear 168, Estimated GFR 91, Est GFR ( Amer) 111, Glucose 70 L, Lactate 1.1, Calcium 8.7, Total Bilirubin 0.3, AST 36, ALT 29, Alkaline Phosphatase 64, Troponin I < 0.01, NT-Pro-B Natriuret Pep 20.3, Total Protein 7.6, Albumin 4.5, Globulin 3.1, Albumin/Globulin Ratio 1.5, Lipase 57 09/03/25 19:31: Urine Color Yellow, Urine Appearance Clear, Urine pH 5.5, Ur Specific Everson <= 1.005, Urine Protein Negative, Urine Glucose (UA) Negative, Urine Ketones Negative, Urine Blood Negative, Urine Nitrate Negative, Urine Bilirubin Negative, Urine Urobilinogen 0.2, Ur Leukocyte Esterase Negative, Ur Squamous Epith Cells Occasional, Urine Bacteria Trace 09/03/25 20:55: POC Glucose 116 H Orders (Tests/Meds): ED MEDICATIONS Generic Name Dose Route Start Last Admin Trade Name Freq PRN Reason Stop Dose Admin Lactated Ringer's 1,000 mls @ 999 mls/hr 09/04/25 00:19 09/04/25 00:37 Lactated Ringer's 1000 Ml Bag IV 09/04/25 01:19 999 mls/hr .Q1H1M ONE Administration Sodium Chloride 10 ml 09/03/25 20:59 09/03/25 21:03 Sodium Chloride 0.9% 10ml Syr (Rad Only) IV 10/03/25 20:58 10 ml NEEDED PRN Administration Maintain IV Site Discontinued Medications Generic Name Dose Route Start Last Admin Trade Name Yobany PRN Reason Stop Dose Admin Acetaminophen 1,000 mg 09/04/25 00:19 09/04/25 00:37 Acetaminophen 500mg Tab PO 09/04/25 00:20 1,000 mg ONCE ONE Administration Glucose 15 gm 09/03/25 19:59 09/03/25 20:04 Dextrose 15gm Packet PO 09/03/25 20:00 15 gm ONCE ONE Administration Iopamidol 75 ml 09/03/25 20:59 09/03/25 21:03 Iopamidol-370 (76%);100ml Bottle IV 09/03/25 21:00 75 ml ONCE ONE Administration Ketorolac Tromethamine 15 mg 09/03/25 22:10 09/03/25 22:49 Ketorolac 15mg/Ml Vial IV 09/03/25 22:11 15 mg ONCE ONE Administration Morphine Sulfate 4 mg 09/03/25 19:31 09/03/25 19:50 Morphine 4mg/Ml Syringe IV 09/03/25 19:32 4 mg ONCE ONE Administration Ondansetron HCl 4 mg 09/03/25 19:31 09/03/25 19:46 Ondansetron 4mg/2ml Vial IV 09/03/25 19:32 4 mg ONCE ONE Administration Oxycodone HCl 5 mg 09/04/25 00:18 09/04/25 00:37 Oxycodone 5mg Immediate Release Tablet PO 09/04/25 00:19 5 mg ONCE ONE Administration ORDERS Category Date Time Status CT abdomen pelvis w con Stat Cat Scan 09/03/25 19:30 Completed US transvaginal Stat Exams 09/03/25 22:27 Completed Complete Blood Count Auto Diff Stat Lab 09/03/25 19:29 Completed Comprehensive Metabolic Panel Stat Lab 09/03/25 19:29 Completed Lactic Acid Stat Lab 09/03/25 19:29 Completed Lipase Stat Lab 09/03/25 19:29 Completed NT Pro Brain Natriuretic Pep. Stat Lab 09/03/25 19:29 Completed POC Glucose,Bedside Routine Lab 09/03/25 20:55 Completed Troponin I Q3H Lab 09/04/25 01:30 Ordered Troponin I Stat Lab 09/03/25 19:29 Completed Urinalysis and Microscopic Stat Lab 09/03/25 19:31 Completed Medical Decision Narrative: 45-year-old female presents the emergency department with multiple symptoms see HPI for detailed past medical history, differential diagnose include but not limited to, ileus, constipation, pancreatitis, diverticulitis, bowel obstruction, hernia, acute UTI, nephrolithiasis, ureterolithiasis, acute pyelonephritis among others. Will obtain basic laboratory studies, EKG, lactic acid lipase level proBNP troponin, urinalysis, CT abdomen pelvis with contrast, will give 4 mg IV morphine for pain and 4 mg of Zofran for nausea. CBC is unremarkable CMP is noted for hyperglycemia 70, no lactic acidosis, normal lipase, will give glucose gel 15 g for hypoglycemia. CMP is notable for normal troponin at less than 0.01, proBNP is within normal with lipase in normal labs. Lactic acid level within normal limits UA is grossly unremarkable. Repeat POC glucose is 116. Patient still complaining of some pain, will give 15 mg IV Toradol for pain, when discussing the patient's pain, patient states that she has a headache , and some neck pain , after the nurse getting morphine . Could be side effect of morphine administration. Thus will give IV Toradol as above. I reviewed the patient's CT head and pelvis with contrast along the corresponding radiologic report, anterior left midline infraumbilical trocar hernia in the pelvis contained small bowel without obstruction, there is a 4.6 cm right ovarian complex cystic mass consider sonogram for further evaluation, gastric bypass. Will obtain transvaginal ultrasound to rule out torsion and to further evaluate the patient's large ovarian cyst/mass on the right. I discussed this patient's case with the attending patient Dr. Cummins at shift change, he will be assuming the patient's care/workup, disposition is pending transvaginal ultrasound. Yvan Cummins MD: I was consulted by the HOLLY, and we discussed the complexity of the problems being addressed. I approve the treatment and management plan for this patient's care in the emergency department, thus performing a substantive portion of the medical decision making. At this time, patient's radiology interpretation of her ultrasound is pending. I reviewed the images personally and there is blood flow to both ovaries. The right ovary with an enlarged septated cystic area with hyperechoic rim but no fluid in the cul-de-sac. Patient's workup is otherwise unremarkable except for nonincarcerated or ischemic intra-abdominal hernia Noted on CT imaging. At this time, patient's care was handed off to the oncoming physician, Dr. Barksdale, pending radiology interpretation of patient's ultrasound imaging and ultimate disposition and possible OB consultation depending on imaging results. <Deepali Barksdale MD - Last Filed: 09/04/25 01:15> Vital Signs: 09/03/25 19:09 09/03/25 22:54 09/03/25 23:30 Temperature 98.7 F Temperature Source Oral Pulse Rate 58 L 64 Pulse Rate [Right] 95 H Respiratory Rate 18 Blood Pressure 142/91 H 112/79 Blood Pressure [Right Arm] 169/105 H Blood Pressure Mean [Right Arm] 126 Blood Pressure Source [Right Arm] Automatic Cuff Blood Pressure Position [Right Arm] Sitting 02 Sat by Pulse Oximetry 100 100 100 Oxygen Delivery Method Room Air Lab Data Lab Results 09/03/25 19:29: WBC 6.5, RBC 4.54, Hgb 12.6, Hct 38.9, MCV 85.7, MCH 27.8, MCHC 32.4, RDW 12.8, Plt Count 288, MPV 9.4, Neut % (Auto) 56.1, Lymph % (Auto) 30.6, Warren % (Auto) 10.9 H, Eos % (Auto) 1.4, Baso % (Auto) 0.8, Neut # (Auto) 3.7, Lymph # (Auto) 2.0, Warren # (Auto) 0.7, Eos # (Auto) 0.1, Baso # (Auto) 0.1, Sodium 136, Potassium 3.9, Chloride 99, Carbon Dioxide 28, Anion Gap 12.9, BUN 8, Creatinine 0.70, Estimated Creat Clear 168, Estimated GFR 91, Est GFR ( Amer) 111, Glucose 70 L, Lactate 1.1, Calcium 8.7, Total Bilirubin 0.3, AST 36, ALT 29, Alkaline Phosphatase 64, Troponin I < 0.01, NT-Pro-B Natriuret Pep 20.3, Total Protein 7.6, Albumin 4.5, Globulin 3.1, Albumin/Globulin Ratio 1.5, Lipase 57 09/03/25 19:31: Urine Color Yellow, Urine Appearance Clear, Urine pH 5.5, Ur Specific Everson <= 1.005, Urine Protein Negative, Urine Glucose (UA) Negative, Urine Ketones Negative, Urine Blood Negative, Urine Nitrate Negative, Urine Bilirubin Negative, Urine Urobilinogen 0.2, Ur Leukocyte Esterase Negative, Ur Squamous Epith Cells Occasional, Urine Bacteria Trace 09/03/25 20:55: POC Glucose 116 H Orders (Tests/Meds): ED MEDICATIONS Generic Name Dose Route Start Last Admin Trade Name Freq PRN Reason Stop Dose Admin Lactated Ringer's 1,000 mls @ 999 mls/hr 09/04/25 00:19 09/04/25 00:37 Lactated Ringer's 1000 Ml Bag IV 09/04/25 01:19 999 mls/hr .Q1H1M ONE Administration Sodium Chloride 10 ml 09/03/25 20:59 09/03/25 21:03 Sodium Chloride 0.9% 10ml Syr (Rad Only) IV 10/03/25 20:58 10 ml NEEDED PRN Administration Maintain IV Site Discontinued Medications Generic Name Dose Route Start Last Admin Trade Name Freq PRN Reason Stop Dose Admin Acetaminophen 1,000 mg 09/04/25 00:19 09/04/25 00:37 Acetaminophen 500mg Tab PO 09/04/25 00:20 1,000 mg ONCE ONE Administration Glucose 15 gm 09/03/25 19:59 09/03/25 20:04 Dextrose 15gm Packet PO 09/03/25 20:00 15 gm ONCE ONE Administration Iopamidol 75 ml 09/03/25 20:59 09/03/25 21:03 Iopamidol-370 (76%);100ml Bottle IV 09/03/25 21:00 75 ml ONCE ONE Administration Ketorolac Tromethamine 15 mg 09/03/25 22:10 09/03/25 22:49 Ketorolac 15mg/Ml Vial IV 09/03/25 22:11 15 mg ONCE ONE Administration Morphine Sulfate 4 mg 09/03/25 19:31 09/03/25 19:50 Morphine 4mg/Ml Syringe IV 09/03/25 19:32 4 mg ONCE ONE Administration Ondansetron HCl 4 mg 09/03/25 19:31 09/03/25 19:46 Ondansetron 4mg/2ml Vial IV 09/03/25 19:32 4 mg ONCE ONE Administration Oxycodone HCl 5 mg 09/04/25 00:18 09/04/25 00:37 Oxycodone 5mg Immediate Release Tablet PO 09/04/25 00:19 5 mg ONCE ONE Administration ORDERS Category Date Time Status CT abdomen pelvis w con Stat Cat Scan 09/03/25 19:30 Completed US transvaginal Stat Exams 09/03/25 22:27 Completed Complete Blood Count Auto Diff Stat Lab 09/03/25 19:29 Completed Comprehensive Metabolic Panel Stat Lab 09/03/25 19:29 Completed Lactic Acid Stat Lab 09/03/25 19:29 Completed Lipase Stat Lab 09/03/25 19:29 Completed NT Pro Brain Natriuretic Pep. Stat Lab 09/03/25 19:29 Completed POC Glucose,Bedside Routine Lab 09/03/25 20:55 Completed Troponin I Q3H Lab 09/04/25 01:30 Ordered Troponin I Stat Lab 09/03/25 19:29 Completed Urinalysis and Microscopic Stat Lab 09/03/25 19:31 Completed Medical Decision Narrative: 45-year-old female presents the emergency department with multiple symptoms see HPI for detailed past medical history, differential diagnose include but not limited to, ileus, constipation, pancreatitis, diverticulitis, bowel obstruction, hernia, acute UTI, nephrolithiasis, ureterolithiasis, acute pyelonephritis among others. Will obtain basic laboratory studies, EKG, lactic acid lipase level proBNP troponin, urinalysis, CT abdomen pelvis with contrast, will give 4 mg IV morphine for pain and 4 mg of Zofran for nausea. CBC is unremarkable CMP is noted for hyperglycemia 70, no lactic acidosis, normal lipase, will give glucose gel 15 g for hypoglycemia. CMP is notable for normal troponin at less than 0.01, proBNP is within normal with lipase in normal labs. Lactic acid level within normal limits UA is grossly unremarkable. Repeat POC glucose is 116. Patient still complaining of some pain, will give 15 mg IV Toradol for pain, when discussing the patient's pain, patient states that she has a headache , and some neck pain , after the nurse getting morphine . Could be side effect of morphine administration. Thus will give IV Toradol as above. I reviewed the patient's CT head and pelvis with contrast along the corresponding radiologic report, anterior left midline infraumbilical trocar hernia in the pelvis contained small bowel without obstruction, there is a 4.6 cm right ovarian complex cystic mass consider sonogram for further evaluation, gastric bypass. Will obtain transvaginal ultrasound to rule out torsion and to further evaluate the patient's large ovarian cyst/mass on the right. I discussed this patient's case with the attending patient Dr. Cummins at shift change, he will be assuming the patient's care/workup, disposition is pending transvaginal ultrasound. Yvan Cummins MD: I was consulted by the HOLLY, and we discussed the complexity of the problems being addressed. I approve the treatment and management plan for this patient's care in the emergency department, thus performing a substantive portion of the medical decision making. At this time, patient's radiology interpretation of her ultrasound is pending. I reviewed the images personally and there is blood flow to both ovaries. The right ovary with an enlarged septated cystic area with hyperechoic rim but no fluid in the cul-de-sac. Patient's workup is otherwise unremarkable except for nonincarcerated or ischemic intra-abdominal hernia Noted on CT imaging. At this time, patient's care was handed off to the oncoming physician, Dr. Barksdale, pending radiology interpretation of patient's ultrasound imaging and ultimate disposition and possible OB consultation depending on imaging results. Barksdale: Upon my assumption of care patient is stable. She states her pain is still persistent and the morphine that she received gave her a headache. Patient received oxycodone, Tylenol, IV fluids. On reassessment she is resting more comfortably and symptoms are controlled. Ultrasound imaging reviewed demonstrates 4.5 x 3.0 cm cyst with concerning atypical findings. Flow is present with no evidence of torsion. I reviewed results with the patient including findings concerning for possible malignancy. I had shared decision making discussion with the patient. Her pain is controlled at this time and I believe she would be appropriate for urgent outpatient follow-up but I offered her admission if her pain is not tolerable. She states she is comfortable being discharged and following up outpatient. She understands the urgency of outpatient follow-up. PDMP reviewed. I gave her a very short course of hydrocodone/acetaminophen to take if needed for breakthrough pain but instructed her that if her pain reaches the level that brought her in tonight or worse that she needs to come back to the ER for further evaluation because of the risk of torsion. I spent extensive time counseling and educating her on the cautious use of this medication because I do not want her masking potentially severe symptoms but explained to her I want her to be able to be comfortable at home until she has follow-up. I also instructed her to not drive or operate machinery after taking this medication due to risk of sedation. She is agreeable to this and understands. I gave her a referral to Dr. Duran for outpatient [employer] follow-up. Patient was given instructions on symptomatic monitoring and management, follow up instructions, and return precautions for the emergency department. Patient indicated understanding and was discharged in stable condition. Critical Care <SUMANTH Man - Last Filed: 09/03/25 22:28> Critical Care Time Critical Care Time: No
--- OUTSIDE RECORDS SUMMARY | 2025-09-03 19:20 | XMS_ITS | Data Portability ---
Author Organization [facility] Address [address] [place] [address] Assessment No assessment recorded. Plan of Treatment Reminders Order Date Submit Date Provider Last Modified By Organization Details Last Modified Time Details Appointments None recorded. Lab CBC w/ auto diff 2023 024 J[facility]AN[facility]SE [facility], [address], [address], [place], [address], 4 08:37:59 CMP, serum or plasma 2023 024 J[facility]ANJOSE [facility], [address], [address], [place], [address], 4 08:38:00 thyroid panel, serum 2023 024 J[facility]AN[facility]SE [facility], [address], [address], [place], [address], 4 08:38:03 lipid panel, serum 2023 024 J[facility]AN[facility]SE [facility], [address], [address], [place], [address], 4 08:38:01 HbA1c (hemoglobin A1c), blood 2023 024 J[facility]AN[facility]SE [facility], [address], [address], [place], [address], 4 08:38:05 vitamin D, 25-hydroxy, total, serum 2023 024 J[facility], [address], [place], [address], 4 08:38:06 drug screen, 14 drugs (detectimed ), urine 2023 024 J[facility], [address], [address], [place], [address], 4 20:35:47 iron + total iron-bindin g capacity (TIBC), serum 2023 024 J[facility]SE [facility], [address], [address], [place], [address], 4 08:38:04 ferritin, serum or plasma 2023 024 J[facility]SE [facility], [address], [address], [place], [address], 4 08:38:07 drug screen, 14 drugs (detectimed ), urine 2022 023 J[facility]SE [facility], [address], [address], [place], [address], 3 16:36:13 vitamin B12 + folate, serum or blood 2022 023 J[facility]SE [facility], [address], [address], [place], [address], 3 16:36:08 vitamin D, 25-hydroxy, total, serum 2022 023 [facility], [address], [address], [place], [address], 3 16:36:08 CBC w/ auto diff 2022 023 [facility], [address], [address], [place], [address], 3 16:36:05 CMP, serum or plasma 2022 023 J[facility]SE [facility], [address], [place], [address], 3 16:36:06 vitamin B12, serum 2022 023 [email or web address] [facility], [address], [address], [place], [address], 3 07:55:02 celiac disease serology panel, serum 2022 023 J[facility]AN[facility]SE [facility], [address], [address], [place], [address], 3 16:36:04 thyroid panel, serum 2022 023 [facility], [address], [place], [address], 3 16:36:07 culture, urine 2022 023 [facility], [address], [address], [place], [address], 3 03:36:36 urinalysis, dipstick 2022 023 [facility], [address] [place], [address], 3 16:45:55 drug screen, 14 drugs (detectimed ), urine 2022 023 [facility], [address], [address], [place], [address], 3 18:35:47 vitamin D, 25-hydroxy, total, serum 2022 023 [facility], [address], [address], [place], [address], 3 03:36:35 TSH + free T4, serum 2022 023 [facility], [address], [address], [place], [address], 3 03:36:30 CBC w/ auto diff 2022 023 [facility], [address], [address], [place], [address], 3 03:36:31 CMP, serum or plasma 2022 023 [facility], [address], [place], [address], 3 03:36:32 HbA1c (hemoglobin A1c), blood 2022 023 [facility], [address], [address], [place], [address], 3 03:36:34 iron + total iron-bindin g capacity (TIBC), serum 2022 023 [facility], [address], [place], [address], 3 03:36:33 ferritin, serum or plasma 2022 023 [facility], [address], [address], [place], [address], 3 03:36:36 vitamin B12 + folate, serum or blood 2022 023 J[facility], [address], [address], [place], [address], 3 03:36:33 drug screen, 14 drugs (detectimed ), urine 2022 023 [facility], [address], [place], [address], 3 16:36:12 Referral bariatric surgery referral 2022 023 [facility], [address], [place], [address], 4 08:20:02 psychiatris t referral 2022 023 Talib Barron, [address], [address], [place], [address], 4 16:42:03 orthopedic surgeon referral 2022 023 [facility], [address], [place], [address], 4 17:03:58 Procedures None recorded. Surgeries None recorded. Imaging None recorded. Medication Orders atorvastati n 20 mg tablet 2023 024 [facility], [address] [facility] [place], [address], 4 16:43:10 fenofibrate nanocrystal lized 145 mg tablet [address] [facility], [address] [facility] [place], [address], 4 20:20:17 trazodone 150 mg tablet 2023 024 [facility], [address] [facility] [place], [address], 5 05:01:58 pantoprazol e 20 mg tablet,sabiha yed release 2023 024 [facility], [address] [facility] [place], [address], 5 05:01:57 metformin 500 mg tablet 2023 024 [facility], [address] [facility] [place], [address], 5 05:01:59 ergocalcife rol (vitamin D2) 1,250 mcg (50,000 unit) capsule 2023 024 [facility], [address] [facility] [address], [place], [address], 5 05:01:59 fluoxetine 40 mg capsule 2023 024 [facility], [address] [facility] [place], [address], 4 16:38:34 levothyroxi ne 125 mcg tablet 2023 024 [facility] [address] [facility] [place], [address], 5 12:54:35 ferrous sulfate 325 mg (65 mg iron) tablet 2023 024 [facility], [address] [facility] [place], [address], 5 05:01:59 sumatriptan 50 mg tablet 2023 024 J[facility]ANJOSE [facility], [address] [facility] [place], [address], 5 05:02:00 ergocalcife rol (vitamin D2) 1,250 mcg (50,000 unit) capsule 2023 024 [facility], [address] [facility] [place], [address], 5 05:01:59 clonazepam 1 mg tablet [email or web address] [facility], [address] [facility] A, [place], [address], 5 11:31:57 trazodone 150 mg tablet 2022 023 [facility], [address] [place], [address], 5 05:01:58 metformin 500 mg tablet 2022 023 [facility], [address] [facility] [place], [address], 5 05:01:59 pantoprazol e 20 mg tablet,sabiha yed release 2022 023 [facility], [address] [facility] [place], [address], 5 05:01:57 rosuvastati n 20 mg tablet 2022 023 [email or web address], [address] [facility] [place], [address], 4 16:47:09 sumatriptan 50 mg tablet 2022 023 [facility], [address] [facility] [place], [address], 5 05:02:00 clonazepam 1 mg tablet 2022 023 [email or web address], [address] [place], [address], 5 11:31:57 fluoxetine 40 mg capsule 2022 023 [facility], [address] [place], [address], 4 10:53:20 levothyroxi ne 125 mcg tablet 2022 023 [facility], [address] [place], [address], 4 10:53:23 divalproex 250 mg tablet,sabiha yed release 2022 023 [email or web address] [facility] [address] [facility] [place], [address], 4 11:50:58 ferrous sulfate 325 mg (65 mg iron) tablet 2022 023 [facility], [address] [facility] [facility] [place], [address], 5 05:01:59 trazodone 150 mg tablet 2022 023 [facility], [address] [facility] [place], [address], 5 05:01:58 sumatriptan 50 mg tablet 2022 023 [facility], [address] [facility] [place], [address], 5 05:02:00 clonazepam 1 mg tablet 2022 023 [email or web address] [facility], [address] [facility] [place], [address], 5 11:31:57 clonazepam 1 mg tablet 2022 023 [email or web address] [facility], [address] [place] [address], [place], [address], 5 11:31:57 fluoxetine 40 mg capsule 2022 023 [facility], [address] [place] [address], [place], [address], 3 14:21:32 levothyroxi ne 125 mcg tablet 2022 023 J[facility]ANJOSE [facility], [address], [place], [address], 3 14:21:30 rosuvastati n 20 mg tablet 2022 023 [email or web address] [facility], [address] [place] [address], [place], [address], 4 16:47:09 Nu-Iron 150 mg iron capsule 2022 023 [email or web address] [facility], [address] [place] [address], [place], [address], 14:52:21 Patient TargetsNo targets recorded. Patient Instructions Encounter Date Encounter Id Patient Instructions Last Modified By Organization Details Last Modified Time 04/03/2023 [id number] body mass index: care instructions Not available 04/03/2023 14:12:17 learning about healthy weight Not available 04/03/2023 14:12:17 UDS and CSA obtained Reviewed PDMR Discussed need to take medications as directed Patient requesting additional antibiotic - explained to her she does not exhibit any signs of infection. She took last dose of zpac today To call office for questions, concerns or issues Not available 04/03/2023 14:38:01 07/27/2023 [id number] body mass index: care instructions Not available 07/27/2023 14:50:25 learning about healthy weight Not available 07/27/2023 14:50:25 UDS obtained CSA and PDMR reviewed Will call with results of labs and urine culture once available Referral for possible carpal tunnel syndrome placed To call office for any questions, concerns or issues Not available 07/27/2023 17:48:34 10/28/2023 [id number] body mass index: care instructions Not available 10/28/2023 15:29:15 learning about healthy weight Not available 10/28/2023 15:29:14 Advised to take medication as directed UDS obtained CSA and PDMR reviewed Will call with results of labs once available Discussed importance of following thru with referrals To call office for questions, concerns or issues Not available 11/03/2023 10:07:51 01/19/2024 [id number] body mass index: care instructions Not available 01/19/2024 11:16:20 learning about healthy weight Not available 01/19/2024 11:16:20 Long discussion held with patient regarding care home effects of benzodiazepam Made aware will start weaning protocol in 3 months unless Psychiatry says otherwise. Patient verbalized understanding Will call with results of labs once available Discussed importance of increasing physical activity and follow low fat diet To call office for questions, concerns or issues Not available 01/19/2024 14:55:39 08/15/2024 [id number] learning about healthy weight Not available 08/15/2024 18:29:41 body mass index: care instructions Not available 08/15/2024 18:29:41 Discussed with amy friedman previous iron sat was 18% (01/2024). 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 Referring Physician: Pearl Hernandez [facility], Encounter Date: 10/28/2023 Bariatric Surgery Referral f or Morbid obesity Referring Physician: Pearl Hernandez [facility], Encounter Date: 10/28/2023 Results Created Date Observation Date Name Description Value Unit Range Abnormal Flag Note LastModifiedBy Organization Detail LastModifiedTime 04/03/20 23 04/09/2023 COMPL IANCE DRUG CLEMENTE SIS, UR summary report (summary) FINAL ===== ===== ===== ===== ===== ===== ===== ===== ===== ===== ===== ===== ===== === TOXAS SURE COMP DRUG CLEMENTE SIS,U R ===== ===== ===== ===== ===== ===== ===== ===== ===== ===== ===== ===== ===== === Speci men Alert Note: Urina ry creat inine is low; abili ty to detec t some drugs may be compr omise d. Inter pret resul ts with cauti on. ===== ===== ===== ===== ===== ===== ===== ===== ===== ===== ===== ===== ===== === Test Resul t Flag Units Drug Prese nt 7-ami noclo nazep am 839 ng/mg creat 7-ami noclo nazep am is an expec maranda metab olite of clona zepam . Sourc e of clona zepam is a sched uled presc ripti on medic ation . Ephed rine/ Pseud oephe drine PRESE NT Pheny lprop anola mine PRESE NT Sourc e of ephed rine/ pseud oephe drine is most commo nly pseud oephe drine in over- the-c ounte r or presc ripti on cold and aller gy medic ation s. Pheny lprop anola mine is an expec maranda metab olite of ephed rine/ pseud oephe drine . Phent ermin e PRESE NT Butal bital PRESE NT Fluox etine PRESE NT Norfl uoxet ine PRESE NT Norfl uoxet ine is an expec maranda metab olite of fluox etine . Aceta minop hen PRESE NT Salic ylate PRESE NT Bromp henir amine PRESE NT Dextr ometh orpha n PRESE NT Dextr orpha n/Lev orpha nol PRESE NT Dextr orpha n is an expec maranda metab olite of dextr ometh orpha n, an over- the-c ounte r or presc ripti on cough suppr essan t. Dextr orpha n canno t be disti nguis hed from the sched uled presc ripti on medic ation levor phano l by the metho d used for clemente sis. ===== ===== ===== ===== ===== ===== ===== ===== ===== ===== ===== ===== ===== === Test Resul t Flag Units Ref Range Creat inine 18 L mg/dL >=20 ===== ===== ===== ===== ===== ===== ===== ===== ===== ===== ===== ===== ===== === Decla red Medic ation s: Medic ation list was not provi ded. ===== ===== ===== ===== ===== ===== ===== ===== ===== ===== ===== ===== ===== === For clini arsh consu ltati on, pleas e call . ===== ===== ===== ===== ===== ===== ===== ===== ===== ===== ===== ===== ===== === Not Available [facility] ([facility]) [address] [facility], [place], [address], 04/09/2023 16:36:12 04/03/20 23 04/09/2023 COMPL IANCE DRUG CLEMENTE SIS, UR pdf . Not Available [facility] ([facility]) [address] [place], [address], 04/09/2023 16:36:12 07/27/20 23 07/28/2023 TSH+F REE T4 TSH 4.240 uIU/m L 0.450- 4.500 Not Available [facility] ([facility]) [address] [place], [address], 07/29/2023 03:36:30 07/27/2007/28/2023 TSH+F REE T4 T4,free(dire ct) 1.00 NG/dL 0.82-1 .77 Not Available [facility] ([facility]) [address] [place], [address], 07/29/2023 03:36:30 07/27/20 23 07/28/2023 CBC WITH DIFFE RENTI AL/PL ATELE T WBC 5.7 x10e3 /uL 3.4-10 .8 Not Available [facility] ([facility]) [address] [place], [address], 07/29/2023 03:36:31 07/27/2007/28/2023 CBC WITH DIFFE RENTI AL/PL ATELE T RBC 4.63 x10e6 /uL 3.77-5 .28 Not Available [facility] ([facility]) [address] [place], [address], 07/29/2023 03:36:31 07/27/2007/28/2023 CBC WITH DIFFE RENTI AL/PL ATELE T hemoglobin 11.7 g/dL 11.1-1 5.9 Not Available [facility] ([facility]) [address] [place], [address], 07/29/2023 03:36:31 07/27/2007/28/2023 CBC WITH DIFFE RENTI AL/PL ATELE T hematocrit 36.4 % 34.0-4 6.6 Not Available [facility] ([facility]) [address] [facility] [place], [address], 07/29/2023 03:36:31 07/27/2007/28/2023 CBC WITH DIFFE RENTI AL/PL ATELE T MCV 79 fL 79-97 Not Available [facility] ([facility]) [address] [facility], [place], [address], 07/29/2023 03:36:31 07/27/2007/28/2023 CBC WITH DIFFE RENTI AL/PL ATELE T MCH 25.3 pg 26.6-3 3.0 below low normal Not Available [facility] ([facility]) [address] [facility], [place], [address], 07/29/2023 03:36:31 07/27/2007/28/2023 CBC WITH DIFFE RENTI AL/PL ATELE T MCHC 32.1 g/dL 31.5-3 5.7 Not Available [facility] ([facility]) [address] [facility], [place], [address], 07/29/2023 03:36:31 07/27/2007/28/2023 CBC WITH DIFFE RENTI AL/PL ATELE T RDW 13.7 % 11.7-1 5.4 Not Available [facility] ([facility]) [address] [place], [address], 07/29/2023 03:36:31 07/27/2007/28/2023 CBC WITH DIFFE RENTI AL/PL ATELE T platelets 317 x10e3 /uL 150-45 0 Not Available [facility] ([facility]) [address] [place], [address], 07/29/2023 03:36:31 07/27/2007/28/2023 CBC WITH DIFFE RENTI AL/PL ATELE T neutrophils 51 % not estab. Not Available [facility] ([facility]) [address] [place], [address], 07/29/2023 03:36:31 07/27/20 23 07/28/2023 CBC WITH DIFFE RENTI AL/PL ATELE T lymphs 34 % not estab. Not Available [facility] ([facility]) [address] [facility], [place], [address], 07/29/2023 03:36:31 07/27/20 23 07/28/2023 CBC WITH DIFFE RENTI AL/PL ATELE T monocytes 12 % not estab. Not Available [facility] ([facility]) [address] [facility], [place], [address], 07/29/2023 03:36:31 07/27/2007/28/2023 CBC WITH DIFFE RENTI AL/PL ATELE T eos 2 % not estab. Not Available [facility] ([facility]) [address] [facility], [place], [address], 07/29/2023 03:36:31 07/27/2007/28/2023 CBC WITH DIFFE RENTI AL/PL ATELE T basos 1 % not estab. Not Available [facility] ([facility]) [address] [facility], [place], [address], 07/29/2023 03:36:31 07/27/2007/28/2023 CBC WITH DIFFE RENTI AL/PL ATELE T immature cells CUSTOMS INSPECTOR Not Available [facility] ([facility]) [address] [facility], [place], [address], 07/29/2023 03:36:31 07/27/2007/28/2023 CBC WITH DIFFE RENTI AL/PL ATELE T neutrophils (absolute) 2.9 x10e3 /uL 1.4-7. 0 Not Available [facility] ([facility]) [address] [place], [address], 07/29/2023 03:36:31 07/27/2007/28/2023 CBC WITH DIFFE RENTI AL/PL ATELE T lymphs (absolute) 2.0 x10e3 /uL 0.7-3. 1 Not Available [facility] ([facility]) [address] [facility], [place], [address], 07/29/2023 03:36:31 07/27/20 23 07/28/2023 CBC WITH DIFFE RENTI AL/PL ATELE T monocytes(ab solute) 0.7 x10e3 /uL 0.1-0. 9 Not Available [facility] ([facility]) [address] [facility], [place], [address], 07/29/2023 03:36:31 07/27/20 23 07/28/2023 CBC WITH DIFFE RENTI AL/PL ATELE T eos (absolute) 0.1 x10e3 /uL 0.0-0. 4 Not Available [facility] ([facility]) [address] [facility], [place], [address], 07/29/2023 03:36:31 07/27/20 23 07/28/2023 CBC WITH DIFFE RENTI AL/PL ATELE T baso (absolute) 0.1 x10e3 /uL 0.0-0. 2 Not Available [facility] ([facility]) [address] [place], [address], 07/29/2023 03:36:31 07/27/20 23 07/28/2023 CBC WITH DIFFE RENTI AL/PL ATELE T immature granulocytes 0 % not estab. Not Available [facility] ([facility]) [address] [place], [address], 07/29/2023 03:36:31 07/27/20 23 07/28/2023 CBC WITH DIFFE RENTI AL/PL ATELE T immature grans (abs) 0.0 x10e3 /uL 0.0-0. 1 Not Available [facility] ([facility]) [address] [place], [address], 07/29/2023 03:36:31 07/27/20 23 07/28/2023 CBC WITH DIFFE RENTI AL/PL ATELE T NRBC CUSTOMS INSPECTOR Not Available [facility] ([facility]) [address] [facility], [place], [address], 07/29/2023 03:36:31 07/27/20 23 07/28/2023 CBC WITH DIFFE RENTI AL/PL ATELE T hematology comments: CUSTOMS INSPECTOR Not Available [facility] ([facility]) [address] [facility], [place], [address], 07/29/2023 03:36:31 07/27/20 23 07/28/2023 COMP. METAB OLIC PANEL (14) glucose 77 mg/dL 70-99 Not Available [facility] ([facility]) [address] [facility], [place], [address], 07/29/2023 03:36:32 07/27/20 23 07/28/2023 COMP. METAB OLIC PANEL (14) BUN 15 mg/dL 6-24 Not Available [facility] ([facility]) [address] [place], [address], 07/29/2023 03:36:32 07/27/20 23 07/28/2023 COMP. METAB OLIC PANEL (14) creatinine 0.78 mg/dL 0.57-1 .00 Not Available [facility] ([facility]) [address] [facility], [place], [address], 07/29/2023 03:36:32 07/27/20 23 07/28/2023 COMP. METAB OLIC PANEL (14) eGFR 98 mL/mi n/1.7 3 >59 Not Available [facility] ([facility]) [address] [place], [address], 07/29/2023 03:36:32 07/27/20 23 07/28/2023 COMP. METAB OLIC PANEL (14) BUN/creatini ne ratio 19 9-23 Not Available [facility] ([facility]) [address] [facility] [place], [address], 07/29/2023 03:36:32 07/27/20 23 07/28/2023 COMP. METAB OLIC PANEL (14) sodium 138 mmol/ L 134-14 4 Not Available [facility] ([facility]) [address] [facility] [place], [address], 07/29/2023 03:36:32 07/27/20 23 07/28/2023 COMP. METAB OLIC PANEL (14) potassium 4.6 mmol/ L 3.5-5. 2 Not Available [facility] ([facility]) [address] [facility] [place], [address], 07/29/2023 03:36:32 07/27/20 23 07/28/2023 COMP. METAB OLIC PANEL (14) chloride 104 mmol/ L 96-106 Not Available [facility] ([facility]) [address] [facility] [place], [address], 07/29/2023 03:36:32 07/27/20 23 07/28/2023 COMP. METAB OLIC PANEL (14) carbon dioxide, total 21 mmol/ L 20-29 Not Available [facility] ([facility]) [address] [facility] [place], [address], 07/29/2023 03:36:32 07/27/20 23 07/28/2023 COMP. METAB OLIC PANEL (14) calcium 9.0 mg/dL 8.7-10 .2 Not Available [facility] ([facility]) [address] [facility] [place], [address], 07/29/2023 03:36:32 07/27/20 23 07/28/2023 COMP. METAB OLIC PANEL (14) protein, total 7.1 g/dL 6.0-8. 5 Not Available [facility] ([facility]) [address] [facility], [place], [address], 07/29/2023 03:36:32 07/27/20 23 07/28/2023 COMP. METAB OLIC PANEL (14) albumin 4.6 g/dL 3.9-4. 9 Not Available [facility] ([facility]) [address] [facility], [place], [address], 07/29/2023 03:36:32 07/27/20 23 07/28/2023 COMP. METAB OLIC PANEL (14) globulin, total 2.5 g/dL 1.5-4. 5 Not Available [facility] ([facility]) [address] [facility] [place], [address], 07/29/2023 03:36:32 07/27/20 23 07/28/2023 COMP. METAB OLIC PANEL (14) A/G ratio 1.8 1.2-2. 2 Not Available [facility] ([facility]) [address] [facility], [place], [address], 07/29/2023 03:36:32 07/27/20 23 07/28/2023 COMP. METAB OLIC PANEL (14) bilirubin, total 0.2 mg/dL 0.0-1. 2 Not Available [facility] ([facility]) [address] [facility] [place], [address], 07/29/2023 03:36:32 07/27/20 23 07/28/2023 COMP. METAB OLIC PANEL (14) alkaline phosphatase 58 IU/L 44-121 Not Available [facility] [address] [facility] [place], [address], 07/29/2023 03:36:32 07/27/20 23 07/28/2023 COMP. METAB OLIC PANEL (14) AST (SGOT) 17 IU/L 0-40 Not Available [facility] ([facility]) [address] [facility], [place], [address], 07/29/2023 03:36:32 07/27/20 23 07/28/2023 COMP. METAB OLIC PANEL (14) ALT (SGPT) 24 IU/L 0-32 Not Available [facility] ([facility]) [address] [place], [address], 07/29/2023 03:36:32 07/27/20 23 07/28/2023 IRON AND TIBC iron bind.cap.(TI BC) 544 ug/dL 250-45 0 above high normal Not Available [facility] ([facility]) [address] [place], [address], 07/29/2023 03:36:32 07/27/20 23 07/28/2023 IRON AND TIBC UIBC 510 ug/dL 131-42 5 above high normal Not Available [facility] ([facility]) [address] [place], [address], 07/29/2023 03:36:32 07/27/20 23 07/28/2023 IRON AND TIBC iron 34 ug/dL 27-159 Not Available [facility] ([facility]) [address] [place], [address], 07/29/2023 03:36:32 07/27/20 23 07/28/2023 IRON AND TIBC iron saturation 6 % 15-55 alert low Not Available [facility] ([facility]) [address] [place], [address], 07/29/2023 03:36:32 07/27/20 23 07/28/2023 VITAM IN B12 AND FOLAT E vitamin B12 744 pg/mL 232-12 45 Not Available [facility] Lab) [address] [place], [address], 07/29/2023 03:36:33 07/27/20 23 07/28/2023 VITAM IN B12 AND FOLAT E folate (folic acid), serum 16.2 NG/mL >3.0 A serum folat e lili ntrat ion of less than 3.1 ng/mL is consi dered to repre sent clini arsh defic iency . Not Available [facility] ([facility]) [address] [facility], [place], [address], 07/29/2023 03:36:33 07/27/20 23 07/28/2023 HEMOG LOBIN A1C hemoglobin A1C 5.7 % 4.8-5. 6 above high normal Predi abete s: 5.7 - 6.4 Diabe barb: >6.4 Glyce walker contr ol for adult s with diabe barb: <7.0 Not Available [facility] ([facility]) [address] [facility], [place], [address], 07/29/2023 03:36:34 07/27/20 23 07/28/2023 VITAM IN D, 25-HY DROXY vitamin D, 25-hydroxy 26.3 NG/mL 30.0-1 00.0 below low normal Vitam in D defic iency has been defin ed by the Insti tute of Medic ine and an Endoc rine Socie ty pract ice guide line as a level of serum 25-OH vitam in D less than 20 ng/mL (1,2) . The Endoc rine Socie ty went on to [facility] er defin e vitam in D insuf ficie ncy as a level betwe en 21 and 29 ng/mL (2). 1. IOM (Inst itute of Medic ine). 2009. Dieta ry refer ence intmartine es for calci um and D. Karissa starr DC: The Natio nal [facility] Press . 2. Milagro taylor MF, Elier ey [place], [place]ne off-F errar i [place], et al. Evalu ation , treat ment, and preve ntion of vitam in D defic iency : an Endoc rine Socie ty clini arsh pract ice guide line. JCEM. 2010; 96(7) :1911 -30. Not Available [facility] ([facility]) [address] [facility], [place], [address], 07/29/2023 03:36:35 07/27/20 23 07/28/2023 ALEJANDRA TIN ferritin 9 NG/mL 15-150 below low normal Not Available [facility] ([facility]) [address] [facility], [place], [address], 07/29/2023 03:36:36 07/27/20 23 07/28/2023 URINE CULTU RE, ROUTI NE urine culture, routine Final report Not Available [facility] ([facility]) [address] [facility], [place], [address], 07/29/2023 03:36:36 07/27/20 23 07/28/2023 URINE CULTU RE, ROUTChago NE result 1 No growth Not Available [facility] ([facility]) [address] [facility], [place], [address], 07/29/2023 03:36:36 07/27/20 23 08/03/2023 COMPL IANCE DRUG CLEMENTE SIS, UR summary report (summary) FINAL ===== ===== ===== ===== ===== ===== ===== ===== ===== ===== ===== ===== ===== === TOXAS SURE COMP DRUG CLEMENTE SIS,U R ===== ===== ===== ===== ===== ===== ===== ===== ===== ===== ===== ===== ===== === Test Resul t Flag Units Drug Prese nt 7-ami noclo nazep am 228 ng/mg creat 7-ami noclo nazep am is an expec maranda metab olite of clona zepam . Sourc e of clona zepam is a sched uled presc ripti on medic ation . Phent ermin e PRESE NT Metho carba mol PRESE NT Fluox etine PRESE NT Norfl uoxet ine PRESE NT Norfl uoxet ine is an expec maranda metab olite of fluox etine . Aceta minop hen PRESE NT ===== ===== ===== ===== ===== ===== ===== ===== ===== ===== ===== ===== ===== === Test Resul t Flag Units Ref Range Creat inine 81 mg/dL >=20 ===== ===== ===== ===== ===== ===== ===== ===== ===== ===== ===== ===== ===== === Decla red Medic ation s: Medic ation list was not provi ded. ===== ===== ===== ===== ===== ===== ===== ===== ===== ===== ===== ===== ===== === For clini arsh consu ltati on, pleas e call . ===== ===== ===== ===== ===== ===== ===== ===== ===== ===== ===== ===== ===== === Not Available [facility] ([facility]) [address] [facility], [place], [address], 08/03/2023 18:35:47 07/27/20 23 08/03/2023 COMPL IANCE DRUG CLEMENTE SIS, UR pdf . Not Available [facility] ([facility]) [address] [facility], [place], [address], 08/03/2023 18:35:47 07/27/20 23 07/27/2023 urina lysis , dipst ick Leukocytes Negati ve Not Available [address] [place], [address], 07/27/2023 14:05:34 07/27/20 23 07/27/2023 urina lysis , dipst ick Nitrite negati ve Not Available [address] [place], [address], 07/27/2023 14:05:34 07/27/20 23 07/27/2023 urina lysis , dipst ick Urobilinogen .2 Not Available [address] [place], [address], 07/27/2023 14:05:34 07/27/20 23 07/27/2023 urina lysis , dipst ick Protein Negati ve Not Available [address] [place], [address], 07/27/2023 14:05:34 07/27/20 23 07/27/2023 urina lysis , dipst ick pH 6.5 Not Available [address] [place], [address], 07/27/2023 14:05:34 07/27/20 23 07/27/2023 urina lysis , dipst ick Blood Non-He molyze d: Trace Not Available [address] [place], [address], 07/27/2023 14:05:34 07/27/20 23 07/27/2023 urina lysis , dipst ick Specific Vergas 1.015 Not Available [address] [place], [address], 07/27/2023 14:05:34 07/27/20 23 07/27/2023 urina lysis , dipst ick Ketone Negati ve Not Available [facility] [address] [place], [place] [address] [place], [address], 07/27/2023 14:05:34 07/27/20 23 07/27/2023 urina lysis , dipst ick Bilirubin Negati ve Not Available [address] [place], [address], 07/27/2023 14:05:34 07/27/20 23 07/27/2023 urina lysis , dipst ick Glucose Negati ve Not Available [address] [place], [address], 07/27/2023 14:05:34 10/28/20 23 11/04/2023 COMPL IANCE DRUG CLEMENTE SIS, UR summary report (summary) FINAL ===== ===== ===== ===== ===== ===== ===== ===== ===== ===== ===== ===== ===== === TOXAS SURE COMP DRUG CLEMENTE SIS,U R ===== ===== ===== ===== ===== ===== ===== ===== ===== ===== ===== ===== ===== === Test Resul t Flag Units Drug Prese nt 7-ami noclo nazep am 540 ng/mg creat 7-ami noclo nazep am is an expec maranda metab olite of clona zepam . Sourc e of clona zepam is a sched uled presc ripti on medic ation . Phent ermin e PRESE NT Metho carba mol PRESE NT Fluox etine PRESE NT Norfl uoxet ine PRESE NT Norfl uoxet ine is an expec maranda metab olite of fluox etine . Trazo done PRESE NT 1,3 chlor ophen yl piper azine PRESE NT 1,3-c hloro pheny l piper azine is an expec maranda metab olite of trazo done. Napro xen PRESE NT ===== ===== ===== ===== ===== ===== ===== ===== ===== ===== ===== ===== ===== === Test Resul t Flag Units Ref Range Creat inine 80 mg/dL >=20 ===== ===== ===== ===== ===== ===== ===== ===== ===== ===== ===== ===== ===== === Decla red Medic ation s: Medic ation list was not provi ded. ===== ===== ===== ===== ===== ===== ===== ===== ===== ===== ===== ===== ===== === For clini arsh consu ltati on, pleas e call . ===== ===== ===== ===== ===== ===== ===== ===== ===== ===== ===== ===== ===== === Not Available [facility] ([facility]) [address] [facility], [place], [address], 11/04/2023 14:37:57 10/28/20 23 11/04/2023 COMPL IANCE DRUG CLEMENTE SIS, UR pdf . Not Available [facility] ([facility]) [address] [facility], [place], [address], 11/04/2023 14:37:57 10/29/20 23 10/29/2023 AMBROSE C DISEA SE PANEL endomysial antibody IgA Negati ve negati ve Not Available [facility] ([facility]) [address] [facility], [place], [address], 10/29/2023 16:36:04 10/29/20 23 10/29/2023 AMBROSE C DISEA SE PANEL T-transgluta minase (ttg) IgA <2 U/mL 0-3 Negat gabo 0 - 3 Weak Posit gabo 4 - 10 Posit gabo >10 Tissu e Trans gluta dinora e (tTG) has been ident ified as the endom ysial antig en. Studi es have demon str- ated that endom ysial IgA antib odies have over 99% speci ficit y for glute n sensi tive enter opath y. Not Available [facility] ([facility]) [address] [facility], [place], [address], 10/29/2023 16:36:04 10/29/20 23 10/29/2023 AMBROSE C DISEA SE PANEL immunoglobul in A, qn, serum 175 mg/dL 87-352 Not Available [facility] ([facility]) [address] [place], [address], 10/29/2023 16:36:04 10/29/20 23 10/29/2023 CBC WITH DIFFE RENTI AL/PL ATELE T WBC 5.4 x10e3 /uL 3.4-10 .8 Not Available [facility] ([facility]) [address] [place], [address], 10/29/2023 16:36:05 10/29/20 23 10/29/2023 CBC WITH DIFFE RENTI AL/PL ATELE T RBC 4.38 x10e6 /uL 3.77-5 .28 Not Available [facility] ([facility]) [address] [place], [address], 10/29/2023 16:36:05 10/29/20 23 10/29/2023 CBC WITH DIFFE RENTI AL/PL ATELE T hemoglobin 12.7 g/dL 11.1-1 5.9 Not Available [facility] ([facility]) [address] [place], [address], 10/29/2023 16:36:05 10/29/20 23 10/29/2023 CBC WITH DIFFE RENTI AL/PL ATELE T hematocrit 37.9 % 34.0-4 6.6 Not Available [facility] ([facility]) [address] [place], [address], 10/29/2023 16:36:05 10/29/20 23 10/29/2023 CBC WITH DIFFE RENTI AL/PL ATELE T MCV 87 fL 79-97 Not Available [facility] ([facility]) [address] [facility], [place], [address], 10/29/2023 16:36:05 10/29/20 23 10/29/2023 CBC WITH DIFFE RENTI AL/PL ATELE T MCH 29.0 pg 26.6-3 3.0 Not Available [facility] ([facility]) [address] [place], [address], 10/29/2023 16:36:05 10/29/20 23 10/29/2023 CBC WITH DIFFE RENTI AL/PL ATELE T MCHC 33.5 g/dL 31.5-3 5.7 Not Available [facility] ([facility]) [address] [place], [address], 10/29/2023 16:36:05 10/29/20 23 10/29/2023 CBC WITH DIFFE RENTI AL/PL ATELE T RDW 14.3 % 11.7-1 5.4 Not Available [facility] ([facility]) [address] [place], [address], 10/29/2023 16:36:05 10/29/20 23 10/29/2023 CBC WITH DIFFE RENTI AL/PL ATELE T platelets 261 x10e3 /uL 150-45 0 Not Available [facility] ([facility]) [address] [facility], [place], [address], 10/29/2023 16:36:05 10/29/20 23 10/29/2023 CBC WITH DIFFE RENTI AL/PL ATELE T neutrophils 61 % not estab. Not Available [facility] ([facility]) [address] [facility], [place], [address], 10/29/2023 16:36:05 10/29/20 23 10/29/2023 CBC WITH DIFFE RENTI AL/PL ATELE T lymphs 23 % not estab. Not Available [facility] ([facility]) [address] [facility], [place], [address], 10/29/2023 16:36:05 10/29/20 23 10/29/2023 CBC WITH DIFFE RENTI AL/PL ATELE T monocytes 9 % not estab. Not Available [facility] ([facility]) [address] [facility], [place], [address], 10/29/2023 16:36:05 10/29/20 23 10/29/2023 CBC WITH DIFFE RENTI AL/PL ATELE T eos 5 % not estab. Not Available [facility] ([facility]) [address] [facility], [place], [address], 10/29/2023 16:36:05 10/29/20 23 10/29/2023 CBC WITH DIFFE RENTI AL/PL ATELE T basos 1 % not estab. Not Available [facility] ([facility]) [address] [facility], [place], [address], 10/29/2023 16:36:05 10/29/20 23 10/29/2023 CBC WITH DIFFE RENTI AL/PL ATELE T immature cells CUSTOMS INSPECTOR Not Available [facility] ([facility]) [address] [place], [address], 10/29/2023 16:36:05 10/29/20 23 10/29/2023 CBC WITH DIFFE RENTI AL/PL ATELE T neutrophils (absolute) 3.4 x10e3 /uL 1.4-7. 0 Not Available [facility] ([facility]) [address] [place], [address], 10/29/2023 16:36:05 10/29/20 23 10/29/2023 CBC WITH DIFFE RENTI AL/PL ATELE T lymphs (absolute) 1.3 x10e3 /uL 0.7-3. 1 Not Available [facility] ([facility]) [address] [place], [address], 10/29/2023 16:36:05 10/29/20 23 10/29/2023 CBC WITH DIFFE RENTI AL/PL ATELE T monocytes(ab solute) 0.5 x10e3 /uL 0.1-0. 9 Not Available [facility] ([facility]) [address] [place], [address], 10/29/2023 16:36:05 10/29/20 23 10/29/2023 CBC WITH DIFFE RENTI AL/PL ATELE T eos (absolute) 0.3 x10e3 /uL 0.0-0. 4 Not Available [facility] ([facility]) [address] [place], [address], 10/29/2023 16:36:05 10/29/20 23 10/29/2023 CBC WITH DIFFE RENTI AL/PL ATELE T baso (absolute) 0.0 x10e3 /uL 0.0-0. 2 Not Available [facility] ([facility]) [address] [place], [address], 10/29/2023 16:36:05 10/29/20 23 10/29/2023 CBC WITH DIFFE RENTI AL/PL ATELE T immature granulocytes 1 % not estab. Not Available [facility] ([facility]) [address] [facility], [place], [address], 10/29/2023 16:36:05 10/29/20 23 10/29/2023 CBC WITH DIFFE RENTI AL/PL ATELE T immature grans (abs) 0.0 x10e3 /uL 0.0-0. 1 Not Available [facility] ([facility]) [address] [facility], [place], [address], 10/29/2023 16:36:05 10/29/20 23 10/29/2023 CBC WITH DIFFE RENTI AL/PL ATELE T NRBC CUSTOMS INSPECTOR Not Available [facility] ([facility]) [address] [facility], [place], [address], 10/29/2023 16:36:05 10/29/20 23 10/29/2023 CBC WITH DIFFE RENTI AL/PL ATELE T hematology comments: CUSTOMS INSPECTOR Not Available [facility] ([facility]) [address] [facility], [place], [address], 10/29/2023 16:36:05 10/29/20 23 10/29/2023 COMP. METAB OLIC PANEL (14) glucose 126 mg/dL 70-99 above high normal Not Available [facility] ([facility]) [address] [facility], [place], [address], 10/29/2023 16:36:06 10/29/20 23 10/29/2023 COMP. METAB OLIC PANEL (14) BUN 10 mg/dL 6-24 Not Available [facility] ([facility]) [address] [facility], [place], [address], 10/29/2023 16:36:06 10/29/20 23 10/29/2023 COMP. METAB OLIC PANEL (14) creatinine 0.58 mg/dL 0.57-1 .00 Not Available [facility] ([facility]) [address] [facility] [place], [address], 10/29/2023 16:36:06 10/29/20 23 10/29/2023 COMP. METAB OLIC PANEL (14) eGFR 117 mL/mi n/1.7 3 >59 Not Available [facility] ([facility]) [address] [place], [address], 10/29/2023 16:36:06 10/29/20 23 10/29/2023 COMP. METAB OLIC PANEL (14) BUN/creatini ne ratio 17 9-23 Not Available [facility] ([facility]) [address] [place], [address], 10/29/2023 16:36:06 10/29/20 23 10/29/2023 COMP. METAB OLIC PANEL (14) sodium 140 mmol/ L 134-14 4 Not Available [facility] ([facility]) [address] [place], [address], 10/29/2023 16:36:06 10/29/20 23 10/29/2023 COMP. METAB OLIC PANEL (14) potassium 4.2 mmol/ L 3.5-5. 2 Not Available [facility] ([facility]) [address] [place], [address], 10/29/2023 16:36:06 10/29/20 23 10/29/2023 COMP. METAB OLIC PANEL (14) chloride 104 mmol/ L 96-106 Not Available [facility] ([facility]) [address] [place], [address], 10/29/2023 16:36:06 10/29/20 23 10/29/2023 COMP. METAB OLIC PANEL (14) carbon dioxide, total 20 mmol/ L 20-29 Not Available [facility] ([facility]) [address] [place], [address], 10/29/2023 16:36:06 10/29/20 23 10/29/2023 COMP. METAB OLIC PANEL (14) calcium 8.4 mg/dL 8.7-10 .2 below low normal Not Available [facility] ([facility]) [address] [facility] [place], [address], 10/29/2023 16:36:06 10/29/20 23 10/29/2023 COMP. METAB OLIC PANEL (14) protein, total 6.3 g/dL 6.0-8. 5 Not Available [facility] ([facility]) [address] [facility] [place], [address], 10/29/2023 16:36:06 10/29/20 23 10/29/2023 COMP. METAB OLIC PANEL (14) albumin 4.0 g/dL 3.9-4. 9 Not Available [facility] ([facility]) [address] [facility], [place], [address], 10/29/2023 16:36:06 10/29/20 23 10/29/2023 COMP. METAB OLIC PANEL (14) globulin, total 2.3 g/dL 1.5-4. 5 Not Available [facility] ([facility]) [address] [facility] [place], [address], 10/29/2023 16:36:06 10/29/20 23 10/29/2023 COMP. METAB OLIC PANEL (14) A/G ratio 1.7 1.2-2. 2 Not Available [facility] ([facility]) [address] [facility] [place], [address], 10/29/2023 16:36:06 10/29/20 23 10/29/2023 COMP. METAB OLIC PANEL (14) bilirubin, total <0.2 mg/dL 0.0-1. 2 Not Available [facility] ([facility] [facility]) [address] [facility] [place], [address], 10/29/2023 16:36:06 10/29/20 23 10/29/2023 COMP. METAB OLIC PANEL (14) alkaline phosphatase 59 IU/L 44-121 Not Available [facility] ([facility]) [address], [place], [address], 10/29/2023 16:36:06 10/29/20 23 10/29/2023 COMP. METAB OLIC PANEL (14) AST (SGOT) 19 IU/L 0-40 Not Available [facility] ([facility]) [address], [place], [address], 10/29/2023 16:36:06 10/29/20 23 10/29/2023 COMP. METAB OLIC PANEL (14) ALT (SGPT) 23 IU/L 0-32 Not Available [facility] ([facility]) [address] [facility], [place], [address], 10/29/2023 16:36:06 10/29/20 23 10/29/2023 THYRO ID PANEL WITH TSH TSH 2.100 uIU/m L 0.450- 4.500 Not Available [facility] ([facility]) [address] [facility], [place], [address], 10/29/2023 16:36:07 10/29/20 23 10/29/2023 THYRO ID PANEL WITH TSH thyroxine (T4) 7.3 ug/dL 4.5-12 .0 Not Available [facility] ([facility]) [address] [facility], [place], [address], 10/29/2023 16:36:07 10/29/20 23 10/29/2023 THYRO ID PANEL WITH TSH T3 uptake 24 % 24-39 Not Available [facility] ([facility]) [address] [facility], [place], [address], 10/29/2023 16:36:07 10/29/20 23 10/29/2023 THYRO ID PANEL WITH TSH free thyroxine index 1.8 1.2-4. 9 Not Available [facility] ([facility]) [address] [facility], [place], [address], 10/29/2023 16:36:07 10/29/20 23 10/29/2023 VITAM IN B12 AND FOLAT E vitamin B12 580 pg/mL 232-12 45 Not Available [facility] ([facility]) [address] [facility], [place], [address], 10/29/2023 16:36:08 10/29/20 23 10/29/2023 VITAM IN B12 AND FOLAT E folate (folic acid), serum 7.5 NG/mL >3.0 A serum folat e lili ntrat ion of less than 3.1 ng/mL is consi dered to repre sent clini arsh defic iency . Not Available [facility] ([facility]) [address] [facility], [place], [address], 10/29/2023 16:36:08 10/29/20 23 10/29/2023 VITAM IN D, 25-HY DROXY vitamin D, 25-hydroxy 15.1 NG/mL 30.0-1 00.0 below low normal Vitam in D defic iency has been defin ed by the Insti tute of Medic ine and an Endoc rine Socie ty pract ice guide line as a level of serum 25-OH vitam in D less than 20 ng/mL (1,2) . The Endoc rine Socie ty went on to furth er defin e vitam in D insuf ficie ncy as a level betwe en 21 and 29 ng/mL (2). 1. IOM (Inst itute of Medic ine). 2009. Dieta ry refer ence intak es for calci um and D. Karissa starr DC: The Natio nal [facility] Press . 2. Milagro taylor MF, Elier ey [place], [place] off-F errar i [place], et al. Evalu ation , treat ment, and preve ntion of vitam in D defic iency : an Endoc rine Socie ty clini arsh pract ice guide line. JCEM. 2010; 96(7) :1911 -30. Not Available [facility] ([facility]) [address] [place], [address], 10/29/2023 16:36:08 10/29/20 23 10/29/2023 MYLA Parekh NOTE please note Commen t The date and/o r time of colle ction was not indic ated on the requi sitio n as requi red by state and [place] law. The date of recei pt of the speci men was used as the colle ction date if not suppl ied. Not Available [facility] ([facility]) [address] [facility], [place], [address], 10/29/2023 16:36:09 10/29/20 23 10/29/2023 COMPL IANCE DRUG CLEMENTE SIS, UR summary report (summary) CUSTOMS INSPECTOR Not Available [facility] ([facility]) [address] [facility], [place], [address], 10/29/2023 16:36:13 10/29/20 23 10/29/2023 COMPL IANCE DRUG CLEMENTE SIS, UR pdf CUSTOMS INSPECTOR Not Available [facility] ([facility]) [address] [place], [address], 10/29/2023 16:36:13 10/29/20 23 10/29/2023 SPECI MEN STATU S REPOR T specimen status report COMMEN T Myla parekh refer to the follo wing speci men for addit ional lab resul ts. TEST: [id number] Compl iance Drug Clemente sis, Ur SEE 347-3 16-77 95-0 Not Available [facility] ([facility]) [address] [place], [address], 10/29/2023 16:36:14 01/19/20 24 01/20/2024 CBC WITH DIFFE RENTI AL/PL ATELE T WBC 6.4 x10e3 /uL 3.4-10 .8 Not Available [facility] ([facility]) [address] [facility], [place], [address], 01/20/2024 08:37:59 01/19/20 24 01/20/2024 CBC WITH DIFFE RENTI AL/PL ATELE T RBC 4.52 x10e6 /uL 3.77-5 .28 Not Available [facility] ([facility]) [address] [facility], [place], [address], 01/20/2024 08:37:59 01/19/20 24 01/20/2024 CBC WITH DIFFE RENTI AL/PL ATELE T hemoglobin 13.5 g/dL 11.1-1 5.9 Not Available [facility] ([facility]) [address] [facility], [place], [address], 01/20/2024 08:37:59 01/19/20 24 01/20/2024 CBC WITH DIFFE RENTI AL/PL ATELE T hematocrit 40.9 % 34.0-4 6.6 Not Available [facility] ([facility]) [address] [place], [address], 01/20/2024 08:37:59 01/19/20 24 01/20/2024 CBC WITH DIFFE RENTI AL/PL ATELE T MCV 91 fL 79-97 Not Available [facility] ([facility]) [address] [place], [address], 01/20/2024 08:37:59 01/19/20 24 01/20/2024 CBC WITH DIFFE RENTI AL/PL ATELE T MCH 29.9 pg 26.6-3 3.0 Not Available [facility] ([facility]) [address] [place], [address], 01/20/2024 08:37:59 01/19/20 24 01/20/2024 CBC WITH DIFFE RENTI AL/PL ATELE T MCHC 33.0 g/dL 31.5-3 5.7 Not Available [facility] ([facility]) [address] [facility], [place], [address], 01/20/2024 08:37:59 01/19/20 24 01/20/2024 CBC WITH DIFFE RENTI AL/PL ATELE T RDW 13.0 % 11.7-1 5.4 Not Available [facility] ([facility]) [address] [facility], [place], [address], 01/20/2024 08:37:59 01/19/20 24 01/20/2024 CBC WITH DIFFE RENTI AL/PL ATELE T platelets 271 x10e3 /uL 150-45 0 Not Available [facility] ([facility]) [address] [facility], [place], [address], 01/20/2024 08:37:59 01/19/20 24 01/20/2024 CBC WITH DIFFE RENTI AL/PL ATELE T neutrophils 61 % not estab. Not Available [facility] ([facility]) [address] [facility], [place], [address], 01/20/2024 08:37:59 01/19/20 24 01/20/2024 CBC WITH DIFFE RENTI AL/PL ATELE T lymphs 23 % not estab. Not Available [facility] ([facility]) [address] [facility], [place], [address], 01/20/2024 08:37:59 01/19/20 24 01/20/2024 CBC WITH DIFFE RENTI AL/PL ATELE T monocytes 11 % not estab. Not Available [facility] ([facility]) [address] [facility], [place], [address], 01/20/2024 08:37:59 01/19/20 24 01/20/2024 CBC WITH DIFFE RENTI AL/PL ATELE T eos 2 % not estab. Not Available [facility] ([facility]) [address] [facility], [place], [address], 01/20/2024 08:37:59 01/19/20 24 01/20/2024 CBC WITH DIFFE RENTI AL/PL ATELE T basos 1 % not estab. Not Available [facility] ([facility]) [address] [place], [address], 01/20/2024 08:37:59 01/19/20 24 01/20/2024 CBC WITH DIFFE RENTI AL/PL ATELE T immature cells CUSTOMS INSPECTOR Not Available [facility] ([facility]) [address] [place], [address], 01/20/2024 08:37:59 01/19/20 24 01/20/2024 CBC WITH DIFFE RENTI AL/PL ATELE T neutrophils (absolute) 3.9 x10e3 /uL 1.4-7. 0 Not Available [facility] ([facility]) [address] [place], [address], 01/20/2024 08:37:59 01/19/20 24 01/20/2024 CBC WITH DIFFE RENTI AL/PL ATELE T lymphs (absolute) 1.5 x10e3 /uL 0.7-3. 1 Not Available [facility] ([facility]) [address] [place], [address], 01/20/2024 08:37:59 01/19/20 24 01/20/2024 CBC WITH DIFFE RENTI AL/PL ATELE T monocytes(ab solute) 0.7 x10e3 /uL 0.1-0. 9 Not Available [facility] ([facility]) [address] [place], [address], 01/20/2024 08:37:59 01/19/20 24 01/20/2024 CBC WITH DIFFE RENTI AL/PL ATELE T eos (absolute) 0.2 x10e3 /uL 0.0-0. 4 Not Available [facility] ([facility]) [address] [place], [address], 01/20/2024 08:37:59 01/19/20 24 01/20/2024 CBC WITH DIFFE RENTI AL/PL ATELE T baso (absolute) 0.0 x10e3 /uL 0.0-0. 2 Not Available [facility] ([facility]) [address] [facility], [place], [address], 01/20/2024 08:37:59 01/19/20 24 01/20/2024 CBC WITH DIFFE RENTI AL/PL ATELE T immature granulocytes 2 % not estab. Not Available [facility] ([facility]) [address] [facility], [place], [address], 01/20/2024 08:37:59 01/19/20 24 01/20/2024 CBC WITH DIFFE RENTI AL/PL ATELE T immature grans (abs) 0.1 x10e3 /uL 0.0-0. 1 Not Available [facility] ([facility]) [address] [facility], [place], [address], 01/20/2024 08:37:59 01/19/20 24 01/20/2024 CBC WITH DIFFE RENTI AL/PL ATELE T NRBC CUSTOMS INSPECTOR Not Available [facility] ([facility]) [address] [facility], [place], [address], 01/20/2024 08:37:59 01/19/20 24 01/20/2024 CBC WITH DIFFE RENTI AL/PL ATELE T hematology comments: CUSTOMS INSPECTOR Not Available [facility] ([facility]) [address] [facility], [place], [address], 01/20/2024 08:37:59 01/19/20 24 01/20/2024 COMP. METAB OLIC PANEL (14) glucose 80 mg/dL 70-99 Not Available [facility] ([facility]) [address] [facility], [place], [address], 01/20/2024 08:38:00 01/19/20 24 01/20/2024 COMP. METAB OLIC PANEL (14) BUN 8 mg/dL 6-24 Not Available [facility] ([facility]) [address] [facility] [place], [address], 01/20/2024 08:38:00 01/19/20 24 01/20/2024 COMP. METAB OLIC PANEL (14) creatinine 0.57 mg/dL 0.57-1 .00 Not Available [facility] ([facility]) [address] [facility], [place], [address], 01/20/2024 08:38:00 01/19/20 24 01/20/2024 COMP. METAB OLIC PANEL (14) eGFR 117 mL/mi n/1.7 3 >59 Not Available [facility] ([facility]) [address] [facility] [place], [address], 01/20/2024 08:38:00 01/19/20 24 01/20/2024 COMP. METAB OLIC PANEL (14) BUN/creatini ne ratio 14 9-23 Not Available [facility] ([facility]) [address] [facility] [place], [address], 01/20/2024 08:38:00 01/19/20 24 01/20/2024 COMP. METAB OLIC PANEL (14) sodium 138 mmol/ L 134-14 4 Not Available [facility] ([facility]) [address] [facility] [place], [address], 01/20/2024 08:38:00 01/19/20 24 01/20/2024 COMP. METAB OLIC PANEL (14) potassium 4.4 mmol/ L 3.5-5. 2 Not Available [facility] ([facility]) [address] [facility], [place], [address], 01/20/2024 08:38:00 01/19/20 24 01/20/2024 COMP. METAB OLIC PANEL (14) chloride 101 mmol/ L 96-106 Not Available [facility] ([facility]) [address] [facility] [place], [address], 01/20/2024 08:38:00 01/19/20 24 01/20/2024 COMP. METAB OLIC PANEL (14) carbon dioxide, total 23 mmol/ L 20-29 Not Available [facility] ([facility]) [address] [facility] [place], [address], 01/20/2024 08:38:00 01/19/20 24 01/20/2024 COMP. METAB OLIC PANEL (14) calcium 8.6 mg/dL 8.7-10 .2 below low normal Not Available [facility] ([facility]) [address] [facility] [place], [address], 01/20/2024 08:38:00 01/19/20 24 01/20/2024 COMP. METAB OLIC PANEL (14) protein, total 6.4 g/dL 6.0-8. 5 Not Available [facility] ([facility]) [address] [facility] [place], [address], 01/20/2024 08:38:00 01/19/20 24 01/20/2024 COMP. METAB OLIC PANEL (14) albumin 4.1 g/dL 3.9-4. 9 Not Available [facility] ([facility]) [address] [facility] [place], [address], 01/20/2024 08:38:00 01/19/20 24 01/20/2024 COMP. METAB OLIC PANEL (14) globulin, total 2.3 g/dL 1.5-4. 5 Not Available [facility] ([facility]) [address] [facility] [place], [address], 01/20/2024 08:38:00 01/19/20 24 01/20/2024 COMP. METAB OLIC PANEL (14) A/G ratio 1.8 1.2-2. 2 Not Available [facility] ([facility]) [address] [place], [address], 01/20/2024 08:38:00 01/19/20 24 01/20/2024 COMP. METAB OLIC PANEL (14) bilirubin, total <0.2 mg/dL 0.0-1. 2 Not Available [facility] ([facility]) [address] [place], [address], 01/20/2024 08:38:00 01/19/20 24 01/20/2024 COMP. METAB OLIC PANEL (14) alkaline phosphatase 58 IU/L 44-121 Not Available [facility] ([facility]) [address] [place], [address], 01/20/2024 08:38:00 01/19/20 24 01/20/2024 COMP. METAB OLIC PANEL (14) AST (SGOT) 26 IU/L 0-40 Not Available [facility] ([facility]) [address] [place], [address], 01/20/2024 08:38:00 01/19/20 24 01/20/2024 COMP. METAB OLIC PANEL (14) ALT (SGPT) 35 IU/L 0-32 above high normal Not Available [facility] ([facility]) [address] [place], [address], 01/20/2024 08:38:00 01/19/20 24 01/20/2024 LIPID PANEL cholesterol, total 274 mg/dL 100-19 9 above high normal Not Available [facility] ([facility]) [address] [place], [address], 01/20/2024 08:38:01 01/19/20 24 01/20/2024 LIPID PANEL triglyceride s 323 mg/dL 0-149 above high normal Not Available [facility] [address] [facility] [place], [address], 01/20/2024 08:38:01 01/19/20 24 01/20/2024 LIPID PANEL HDL cholesterol 43 mg/dL >39 Not Available [facility]) [address] [place], [address], 01/20/2024 08:38:01 01/19/20 24 01/20/2024 LIPID PANEL VLDL cholesterol arsh 62 mg/dL 5-40 above high normal Not Available [facility] ([facility]) [address] [place], [address], 01/20/2024 08:38:01 01/19/20 24 01/20/2024 LIPID PANEL LDL chol calc ([facility]) 169 mg/dL 0-99 above high normal Not Available [facility] ([facility]) [address] [place], [address], 01/20/2024 08:38:01 01/19/20 24 01/20/2024 LIPID PANEL comment: CUSTOMS INSPECTOR Not Available [facility] ([facility]) [address] [place], [address], 01/20/2024 08:38:01 01/19/20 24 01/20/2024 THYRO ID PANEL WITH TSH TSH 4.430 uIU/m L 0.450- 4.500 Not Available [facility] ([facility]) [address] [place], [address], 01/20/2024 08:38:02 01/19/20 24 01/20/2024 THYRO ID PANEL WITH TSH thyroxine (T4) 7.1 ug/dL 4.5-12 .0 Not Available [facility] ([facility]) [address] [place], [address], 01/20/2024 08:38:02 01/19/20 24 01/20/2024 THYRO ID PANEL WITH TSH T3 uptake 23 % 24-39 below low normal Not Available [facility] ([facility]) [address] [place], [address], 01/20/2024 08:38:02 01/19/20 24 01/20/2024 THYRO ID PANEL WITH TSH free thyroxine index 1.6 1.2-4. 9 Not Available [facility] ([facility]) [address] [facility], [place], [address], 01/20/2024 08:38:02 01/19/20 24 01/20/2024 IRON AND TIBC iron bind.cap.(TI BC) 445 ug/dL 250-45 0 Not Available [facility] ([facility]) [address] [facility], [place], [address], 01/20/2024 08:38:04 01/19/20 24 01/20/2024 IRON AND TIBC UIBC 365 ug/dL 131-42 5 Not Available [facility] ([facility]) [address] [place], [address], 01/20/2024 08:38:04 01/19/20 24 01/20/2024 IRON AND TIBC iron 80 ug/dL 27-159 Not Available [facility] ([facility]) [address] [place], [address], 01/20/2024 08:38:04 01/19/20 24 01/20/2024 IRON AND TIBC iron saturation 18 % 15-55 Not Available [facility] ([facility]) [address] [place], [address], 01/20/2024 08:38:04 01/19/20 24 01/20/2024 HEMOG LOBIN A1C hemoglobin A1C 5.8 % 4.8-5. 6 above high normal Predi abete s: 5.7 - 6.4 Diabe barb: >6.4 Glyce walker contr ol for adult s with diabe barb: <7.0 Not Available [facility] ([facility]) [address] [place], [address], 01/20/2024 08:38:05 01/19/20 24 01/20/2024 VITAM IN D, 25-HY DROXY vitamin D, 25-hydroxy 24.1 NG/mL 30.0-1 00.0 below low normal Vitam in D defic iency has been defin ed by the Insti tute of Medic ine and an Endoc rine Socie ty pract ice guide line as a level of serum 25-OH vitam in D less than 20 ng/mL (1,2) . The Endoc rine Socie ty went on to furth er defin e vitam in D insuf ficie ncy as a level betwe en 21 and 29 ng/mL (2). 1. IOM (Inst itute of Medic ine). 2010. Maggya ry refer ence darvin es for calci um and D. Karissa starr [place]: [facility] . 2. Milagro taylor MF, Elier schilling [place], Lorene off-F errar i [place], et al. Evalu ation , treat ment, and preve ntion of vitam in D defic iency : an Endoc rine Socie ty clini rash pract ice guide line. JCEM. 2010; 96(7) :1911 -30. Not Available [facility] ([facility]) [address] [facility], [place], [address], 01/20/2024 08:38:06 01/19/20 24 01/20/2024 ALEJANDRA TIN ferritin 32 NG/mL 15-150 Not Available [facility] ([facility]) [address] [facility], [place], [address], 01/20/2024 08:38:07 01/19/20 24 01/26/2024 COMPL IANCE DRUG CLEMENTE SIS, UR summary report (summary) FINAL ===== ===== ===== ===== ===== ===== ===== ===== ===== ===== ===== ===== ===== === TOXAS SURE COMP DRUG CLEMENTE SIS,U R ===== ===== ===== ===== ===== ===== ===== ===== ===== ===== ===== ===== ===== === Test Resul t Flag Units Drug Prese nt 7-ami noclo nazep am 375 ng/mg creat 7-ami noclo nazep am is an expec maranda metab olite of clona zepam . Sourc e of clona zepam is a sched uled presc ripti on medic ation . Metho carba mol PRESE NT Fluox etine PRESE NT Norfl uoxet ine PRESE NT Norfl uoxet ine is an expec maranda metab olite of fluox etine . Trazo done PRESE NT 1,3 chlor ophen yl piper azine PRESE NT 1,3-c hloro pheny l piper azine is an expec maranda metab olite of trazo done. Aceta minop hen PRESE NT Ibupr ofen PRESE NT Chlor pheni deloris e PRESE NT Dextr ometh orpha n PRESE NT Dextr orpha n/Lev orpha nol PRESE NT Dextr orpha n is an expec maranda metab olite of dextr ometh orpha n, an over- the-c ounte r or presc ripti on cough suppr essan t. Dextr orpha n canno t be disti nguis hed from the sched uled presc ripti on medic ation levor phano l by the metho d used for clemente sis. ===== ===== ===== ===== ===== ===== ===== ===== ===== ===== ===== ===== ===== === Test Resul t Flag Units Ref Range Creat inine 28 mg/dL >=20 ===== ===== ===== ===== ===== ===== ===== ===== ===== ===== ===== ===== ===== === Decla red Medic ation s: Medic ation list was not provi ded. ===== ===== ===== ===== ===== ===== ===== ===== ===== ===== ===== ===== ===== === For clini arsh consu ltati on, pleas e call [phone]. ===== ===== ===== ===== ===== ===== ===== ===== ===== ===== ===== ===== ===== === Not Available [facility] ([facility]) [address] [facility], [place], [address], 01/26/2024 20:35:47 01/19/20 24 01/26/2024 COMPL IANCE DRUG CLEMENTE SIS, UR pdf . Not Available [facility] ([facility]) [address] [facility], [place], [address], 01/26/2024 20:35:47 01/11/20 24 01/11/2024 XR, chest , 2 view No observ ation record ed. [address], [place], [address], 01/11/2024 16:10:29 01/11/20 24 01/11/2024 elect rosegodfrey jenajuwan am No observ ation record ed. [address], [place], [address], 01/12/2024 15:03:52 Result Notes None recorded. Problems Name Problem SNOMED Code Status Onset Date Resolution Date Notes Provider Name and Address Organization Details Recorded Time Suspecte d COVID-19 [id number] Completed 05/17/2021 Removal Reason: Problem added by user [email or web address] from the COVID-19 watch flag Shante Harris null, [place] - [facility] 10:16:52 Contrace ption care manageme nt Completed Signed steriliz ation papers 10/24/22 Infusion Nurse [facility] [address], [place], [address], [place] [facility] 09:26:37 Antenata l screenin g Completed [x]Mat21 -46XX [-]AFP-d eclined [x]CF-ne g in 2013 Infusion Nurse [facility] [address], [place], [address], [place] [facility] 3 09:26:36 Active immuniza tion Completed [-]Covid -decline s [x]Tdap- 10/28 [-]Flu-d eclines Infusion Nurse [facility] [address], [place], [address], [place] [facility] 3 09:26:36 Body mass index 40+ - severely obese 410022796 Completed BMI: 40.3 starting wgt: 232 recommen ded wgt gain: 11-20 In[facility] Nurse [facility] [address], [place], [address], [place] [facility] 3 09:26:36 Polyhydr amnios 62712543 Active 09/25/22 AMAURI 25 Infusion Nurse [facility] [address], [place], [address], [place] [facility] 3 09:26:36 Polyhydr amnios 43187382 Completed 09/25/22 AMAURI 25 Infusion Nurse [facility] [address], [place], [address], [place] [facility] 3 09:26:36 Chronic anxiety 933137866 Active 2015 Quita Lr MD [address], [place], [address], [place] [facility] 2 14:02:46 Rosacea 290015255 Active 2015 Camila Kern APRN [address], [place], [address], [place] [facility] 2 15:24:42 Insomnia 127306591 Active 2015 Camila KernNATALI [address], [place], [address], [place] [facility] 2 15:23:53 Chronic anxiety 170930725 Completed 2015 Quita Lr MD [address], [place], [address], [place] [facility] 2 14:00:25 Polycyst ic ovaries Completed 201605/22/2022 Camila KernNATALI [address], [place], [address], [place] [facility] 15:24:20 Gastroes ophageal reflux disease 803849482 Active 2016 Camila KernNATALI [address], [place], [address], [place] [facility] 2 15:23:28 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 SEE BELOW In[facility] Nurse [facility] [address], [place], [address], [place] [facility] 3 09:26:37 Hypothyr oidism 39116909 Completed 2017 SEE BELOW [facility] Nurse [facility] [address], [place], [address], [place] [facility] 3 09:26:37 Dysmenor anjel 831406822 Completed 201805/22/2022 Camila KernNATALI [address], [place], [address], [place] [facility] 2 15:23:42 Adult attentio n deficit hyperact ivity disorder 372370173 Active 2018 Camila KernNATALI [address], [place], [address], [place] [facility] 2 15:23:15 Hirsuisrael m 226285098 Active 2018 Camila NATALI Kern [address], [place], [address], [place] [facility] 15:24:37 Obesity 180147835 Active 2018 Camila NATALI Kern [address], [place], [address], [place] [facility] 15:24:12 Depressi ve disorder 43181337 Active 2018 In[facility] Nurse [facility] [address], [place], [address], [place] [facility] 3 09:26:36 Depressi ve disorder 42754597 Completed 2018 Infusion Nurse [facility] [address], [place], [address], [place] [facility] 3 09:26:36 Hyperlip idemia 03224579 Active 2020 Camila Kern, [employer] [address], [place], [address], [place] [facility] 15:23:48 Metaboli c syndrome X 352761905 Active 2020 Camila Kern, [employer] [address], [place], [address], [place] [facility] 15:24:02 Vitamin D deficien cy 58567601 Completed 202005/22/2022 Sofia Napier null[place] [facility] 3 09:34:43 Anemia 167397283 Completed 202005/22/2022 Camila Kern, [employer] [address], [place], [address], [place] [facility] 2 15:23:33 Uses oral contrace ption 9901542 Completed 202005/22/2022 Mandy Lewis [place] [facility] 14:57:02 Restless legs syndrome 93553978 Active 2020 patient requesti ng Requip during pregnanc y I will review/l lc 08/28 In[facility] Nurse [facility] [address], [place], [address], [place] [facility] 3 09:26:37 Restless legs syndrome 48756905 Completed 2020 patient requesti ng Requip during pregnanc y I will review/l lc 08/28 Infusion Nurse [facility] [address], [place], [address], [place] [facility] 3 09:26:37 Acute COVID-19 2990973914 Completed 202105/22/2022 Mandy Lewis null[place] [facility] 2 14:56:55 Seasonal allergic rhinitis 375580056 Active 2021 Camila Kern, [employer] [address], [place], [address], [place] [facility] 2 15:24:46 Migraine 32793682 Active 2021 Camila Kern, [employer] [address], [place], [address], [place] [facility] 2 15:24:09 Acute bronchit is 74451859 Completed 202105/22/2022 Mandy Lewis [place] [facility] 2 14:56:51 Pregnanc y 48372150 Completed 202112/11/2022 In[facility] Nurse [facility] [address], [place], [address], [place] [facility] 09:26:50 Maternal obesity complica ting pregnanc y, childbir th and the puerperi , antepart 2484292792 07 Active 2021 A1c: 5.3 In[facility] Nurse [facility] [address], [place], [address], [place] [facility] 3 09:26:37 Maternal obesity complica ting pregnanc y, childbir th and the puerperi , antepart 1635318713 07 Completed 2021 A1c: 5.3 In[facility] Nurse [facility] [address], [place], [address], [place] [facility] 3 09:26:37 Advanced maternal age 218651787 Completed 2021 [x] Referral Infusion Nurse [facility] [address], [place], [address], [place] [facility] 3 09:26:36 Advanced maternal age 218524532 Active 2021 [x] Referral In[facility] Nurse [facility] [address], [place], [address], [place] [facility] 3 09:26:36 Past pregnanc y history of gestatio nal diabetes mellitus 664473693 Completed 202105/22/2022 Camila Kern, [employer] [address], [place], [address], [place] [facility] 2 15:54:34 Past pregnanc y history of gestatio nal diabetes mellitus 993835339 Completed 2021 Early 1hr gtt: 113 In[facility] Nurse [facility] [address], [place], [address], [place] [facility] 3 09:26:37 Supervis ion of high risk pregnanc y with history of previous section done 7943555014 9106 Completed 2021 desires repeat w/[place] schedule d 12/08/22 @ [facility] Infusion Nurse [facility] [address], [place], [address], [place] [facility] 3 09:26:36 Supervis ion of high risk pregnanc y with history of previous section done 3039296976 9106 Active 2021 desires repeat w/[place] schedule d 12/08/22 @ [facility] In[facility] Nurse [facility] [address], [place], [address], [place] [facility] 3 09:26:36 History of 3 miscarri ages 196639916 Completed 2021 [facility] Nurse [facility] [address], [place], [address] [facility] 3 09:26:36 History of 3 miscarri ages 761306920 Active 2021 [facility] Nurse [facility] [address], [place], [address] [facility] 3 09:26:37 Hypothyr oidism in pregnanc y 845565493 Active 2021 Cynthia To, DO [address], [place], [address], [place] [facility] 2 09:59:31 Vitamin D deficien cy 55368336 Completed 2022 37 wk; started repletio n In[facility] Nurse [facility] [address], [place], [address], [place] [facility] 3 09:26:36 Vitamin D deficien cy 45969975 Active 2022 37 wk; started repletio n Infusion Nurse [facility] [address], [place], [address], [place] [facility] 3 09:26:36 Iron deficien cy anemia 94104128 Active 2022 Angi eason, [place] - [facility] 3 11:59:22 Bilatera l carpal tunnel syndrome 0241271174 8800834 Active 2022 Pearl Hernandez, [employer] [address], [place], [address], [place] [facility] 3 17:42:49 Recurren t urinary tract infectio n 646974659 Active 2022 Pearl Hernandez, [employer] [address], [place], [address], [place] [facility] 3 17:47:00 Epigastr ic pain 86294056 Active 2022 Pearl Hernandez, [employer] [address], [place], [address], [place] [facility] 3 15:27:22 Mixed anxiety and depressi ve disorder 422868412 Active 2023 Pearl Hernandez, [employer] [address], [place], [address], [place] [facility] 4 10:52:12 Problem Notes None recorded. Procedures Surgical History Date Name Laterality Status Provider Name and Address Organization Details Recorded Time 023 OB Ultrasound Summary completed Elenalhaji Charly [place] - [facility] 11/28/2022 15:46:29 022 Date of Last Pap Smear completed Mandy Lewis [place] - [facility] 10/01/2022 10:31:51 022 OB Ultrasound Summary completed Israelben Meyersant [place] - [facility] 05/22/2022 16:17:06 021 Systolic B/P less than 130 mm Hg completed Shante Harris [place] - [facility] 11/23/2020 12:09:13 021 Diastolic B/P 80-89 mm Hg completed Shante Kimberly [place] [facility] 11/23/2020 12:09:15 020 Systolic B/P less than 130 mm Hg completed Shante [place] [facility] 06/29/2020 15:25:38 020 Diastolic B/P less than 80 mm Hg completed Shante [place] [facility] 06/29/2020 15:25:40 020 Systolic B/P less than 130 mm Hg completed Shante [place] [facility] 01/31/2020 13:02:57 020 Diastolic B/P 80-89 mm Hg completed Shante Kimber[place] [facility] 01/31/2020 13:03:00 020 Diastolic B/P greater than or equal to 90 mm Hg completed Shante [place] [facility] 12/13/2019 12:41:28 020 Systolic B/P 130-139 mm Hg completed Shante [place] [facility] 12/13/2019 12:41:19 019 Systolic B/P less than 130 mm Hg completed Shante [place] [facility] 09/13/2019 15:43:13 019 Diastolic B/P 80-89 mm Hg completed Shante [place] [facility] 09/13/2019 15:43:18 019 Systolic B/P less than 130 mm Hg completed Shante [place] [facility] 05/06/2019 11:54:33 019 Diastolic B/P 80-89 mm Hg completed Shante [place] [facility] 05/06/2019 11:54:37 019 Systolic B/P less than 130 mm Hg completed Shante [place] [facility] 02/10/2019 16:09:06 019 Diastolic B/P less than 80 mm Hg completed Shante [place] [facility] 02/10/2019 16:09:10 019 Systolic B/P less than 130 mm Hg completed Shante [place] [facility] 02/01/2019 16:36:47 019 Diastolic B/P 80-89 mm Hg completed Shante Kimber[place] [facility] 02/01/2019 16:36:50 015 Caesarean Section completed Mandy BROWNLEE - [facility] 05/22/2022 15:10:39 Tonsillectomy completed Mandy BROWNLEE [facility] 05/22/2022 15:05:11 Gastrointestinal Surgery completed [facility] 15:05:07 Imaging Results None recorded. Procedure Notes None recorded. Medical Equipment None Reported. Allergies No known drug allergies Medications Name Sig Start Date Stop Date Status Note LastModified by Organization Details LastModified Time Prescript ion - Renewal 09/13 completed Not Available Not Available Not Available Zocor 20 mg tablet take 1 tablet (20 mg) by oral route once daily in the evening 01/05 completed Zocor 20 mg oral tablet;R ecorded Status: Recorded on: 10/17/20 08 2:48PM;D iscontin ued Status: Disconti nued on: 01/05/20 09 10:27AM; User: [facility]; Noemíti on: Mixed Hyperlip idemia - (03.2722 00) Not Available Not Available Not Available fluoxetin e 40 mg capsule TAKE 1 CAPSULE BY MOUTH DAILY. active Not Available Not Available No t Available cyclobenz aprine 10 mg tablet take 1 tablet (10 mg) by oral route 1 times per day 09/14 completed cycloben zaprine 10 mg oral tablet;R ecorded Status: Recorded on: 08/06/20 15 3:47PM;D iscontin ued Status: Disconti nued on: 09/14/20 15 8:56AM;U ser: [email or web address];Es t. Completi on: 09/05/20 15;Indic ation: Muscle Spasm - (13.7288 50);Prin maranda: 08/06/20 15 Not Available Not Available Not Available Mirena 21 mcg/24 hr (up to 8 years) 52 mg intrauter ine device place 1 device by intraute rine route 10/25 completed Mirena 20 mcg/24 hr (5 years) intraute rine intraute rine device;R ecorded Status: Recorded on: 11/06/20 11 2:58PM;D iscontin ued Status: Disconti nued on: 10/25/20 12 8:31AM;U ser: [email or web address]; Printed: 11/24/19 12 Not Available Not Available Not Available Miralax 17 gram/dose oral powder take 17 gram mixed with 8 oz. water, juice, soda, coffee or tea by oral route once daily 01/13 completed Miralax 17 gram/dos e oral powder;P rescribe Status: Prescrib ed on: 07/13/20 13 4:11PM;D iscontin ued Status: Disconti nued on: 01/13/20 14 11:26AM; User: elaine Payne ion: Constipa tion - (09.5640 00);Phar Tamra fied: 07/13/20 13 4:11PM Not Available Not Available Not Available methocarb skip 500 mg tablet TAKE ONE (1) TABLET BY MOUTH THREE (3) TIMES DAILY NEEDED 05/22 completed Not Available Not Available Not Available buspirone 5 mg tablet TAKE ONE (1) TABLET TWICE A DAY BY ORAL ROUTE. 09/25 completed Not Available Not Available Not Available terbinafi ne HCl 1 % topical cream apply to the affected and surround ing areas of skin by topical route 2 times per day 10/05 completed terbinaf ine HCl 1 % topical cream;Re corded Status: Recorded on: 03/09/20 12 2:24PM;D iscontin ued Status: Disconti nued on: 10/05/20 12 4:11PM;U ser: [email or web address]; Printed: 03/09/20 12 Not Available Not Available Not Available metformin 500 mg tablet Take 1 tablet twice a day by oral route for 14 days. 07/06 completed Not Available Not Available Not Available promethaz ine-DM 6.25 mg-15 mg/5 mL oral syrup Take 5 mL every 6 hours by oral route as needed for 5 days. 08/15 completed Not Available Not Available Not Available Colace 100 mg capsule take 1-2 tabs po bid 01/13 completed Colace 100 mg oral capsule; Prescrib e Status: Prescrib ed on: 07/13/20 13 4:11PM;D iscontin ued Status: Disconti nued on: 01/13/20 14 11:26AM; User: leaine HinsonIndicat ion: Constipa tion - (09.5640 00);Phaaftab Barboza fied: 07/13/20 13 4:11PM Not Available Not Available Not Available venlafaxi ne ER 75 mg capsule,e xtended release 24 hr TAKE 1 CAPSULE BY MOUTH DAILY. 05/06 completed Not Available Not Available Not Available doxycycli ne hyclate 100 mg capsule TAKE 1 CAPSULE BY MOUTH TWICE DAILY 02/14 completed Not Available Not Available Not Available atorvasta tin 20 mg tablet TAKE 1 TABLET BY MOUTH ONCE DAILY. active Not Available Not Available No t Available ropinirol e 1 mg tablet take 1 tablet (1 mg) by oral route 1-3 hours before bedtime for 30 days 02/05 completed Not Available Not Available Not Available divalproe x 250 mg tablet,de layed release TAKE ONE TABLET BY MOUTH 3 TIMES DAILY 07/06 completed Not Available Not Available Not Available azithromy gualberto 250 mg tablet TAKE 2 TABLETS BY MOUTH TODAY THEN 1 TABLET BY MOUTH ONCE A DAY FOR 4 DAYS 01/12 completed Not Available Not Available Not Available pravastat in 40 mg tablet take 1 tablet (40 mg) by oral route once daily at bedtime for 30 days 10/05 completed pravasta tin 40 mg oral tablet;R ecorded Status: Recorded on: 04/14/20 12 3:49PM;D iscontin ued Status: Disconti nued on: 10/05/20 12 4:11PM;U ser: blumc;Es t. Completi on: 07/13/20 12 Not Available Not Available Not Available ibuprofen 800 mg tablet TAKE ONE (1) TABLET BY MOUTH EVERY SIX (6) HOURS NEEDED 08/13 completed Not Available Not Available Not Available tizanidin e 4 mg tablet take 1 tablet (4 mg) by oral route every 8 hours as needed not to exceed 3 doses in 24 hours for 14 days 01/21 completed tizanidi ne 4 mg oral tablet;P rescribe Status: Prescrib ed on: 10/16/20 15 2:42PM;D iscontin ued Status: Disconti nued on: 01/22/20 16 3:55PM;U ser: grayn;Es t. Completi on: 10/30/20 15;Indic ation: Muscle Spasm - (13.7288 50);Phar macyVeri fied: 10/16/20 15 2:42PM Not Available Not Available Not Available fluconazo le 150 mg tablet TAKE 1 TABLET BY MOUTH EVERY 3 DAYS 07/06 completed Not Available Not Available Not Available benzonata te 200 mg capsule TAKE ONE (1) CAPSULE THREE (3) TIMES A DAY BY ORAL ROUTE. 05/22 completed Not Available Not Available Not Available glyburide 2.5 mg tablet take 1 tablet (2.5 mg) by oral route once daily before breakfas t for 30 days 02/01 completed glyburid e 2.5 mg oral tablet;P rescribe Status: Prescrib ed on: 12/13/19 15 2:36PM;D iscontin ued Status: Disconti nued on: 02/02/20 15 8:52AM;U ser: hogger;E st. Completi on: 02/12/20 15;Pharm acyVerif ied: 12/13/19 15 2:36PM Not Available Not Available Not Available albuterol sulfate 1.25 mg/3 mL solution for nebulizat ion Inhale 3 mL by inhalati on route. 02/01 completed Not Available Not Available Not Available hydrocodo ne 5 mg-acetam inophen 325 mg tablet TAKE ONE (1) TABLET BY MOUTH EVERY 6-8 HOURS NEEDED 08/13 completed Not Available Not Available Not Available Celestone Soluspan 6 mg/mL suspensio n for injection Take 1 mL by injectio n route. 05/22 completed Not Available Not Available Not Available promethaz ine 6.25 mg/5 mL oral syrup 10/16 completed Not Available Not Available Not Available senna 8.6 mg tablet 04/03 completed Not Available Not Available Not Available phenazopy ridine 200 mg tablet TAKE 1 TABLET BY MOUTH EVERY 8 HOURS FOR PAIN FOR 2 DAYS 08/15 completed Not Available Not Available Not Available Paxil 20 mg tablet take 1 tablet (20 mg) by oral route once daily 01/13 completed Paxil 20 mg oral tablet;R ecorded Status: Recorded on: 01/13/20 14 11:26AM; Disconti nued Status: Disconti nued on: 01/13/20 14 12:08PM; User: ringm;In dication : Major Depressi ve Disorder - (2962 ) Not Available Not Available Not Available Paxil 10 mg/5 mL oral suspensio n take 20 millilit ers (40 mg) by oral route once daily for 30 days 11/05 completed Paxil 10 mg/5 mL oral suspensi on;Recor ded Status: Recorded on: 08/27/20 11 9:10AM;D iscontin ued Status: Disconti nued on: 11/05/20 11 2:42PM;U ser: sarah cruz;Est. Completi on: 09/26/20 11;Indic ation: Generali zed Anxiety Disorder - ();Prin maranda: 08/27/20 11 Not Available Not Available Not Available prednison e 20 mg tablet 01/18 completed Not Available Not Available Not Available Ferrex 150 mg iron capsule TAKE ONE CAPSULE BY MOUTH ONCE DAILY 10/28 completed Not Available Not Available Not Available miconazol e nitrate 2 % vaginal cream Insert 1 applicat orful every day by vaginal route for 7 days. 04/03 completed Not Available Not Available Not Available clonazepa m 1 mg tablet TAKE 1 TABLET BY MOUTH DAILY NEEDED FOR ANXIETY. 06/15 completed Not Available Not Available Not Available venlafaxi ne ER 150 mg capsule,e xtended release 24 hr TAKE 1 CAPSULE BY MOUTH EVERY DAY active Not Available Not Available No t Available sumatript an 50 mg tablet Take 1 Tablet by mouth daily as needed for 14 days. MAY REPEAT in 2 hours, IF NEEDED for 1 dose active Not Available Not Available No t Available promethaz ine 6.25 mg-codein e 10 mg/5 mL syrup TAKE ONE TEASPOON FOUR TIMES A DAY NEEDED 02/14 completed Not Available Not Available Not Available oxycodone 5 mg/5 mL oral solution 10/16 completed Not Available Not Available Not Available penicilli n V potassium 500 mg tablet TAKE 1 TABLET BY MOUTH FOUR (4) TIMES DAILY UNTIL GONE 08/13 completed Not Available Not Available Not Available hydroxyzi ne HCl 50 mg tablet Take 1 tablet twice a day by oral route as needed for 30 days. 02/05 completed Not Available Not Available Not Available phentermi ne 37.5 mg tablet Take 1 tablet every day by oral route. 09/06 completed Not Available Not Available Not Available Paxil 40 mg tablet take 1 tablet (40 mg) by oral route once daily for 30 days 04/24 completed Paxil 40 mg oral tablet;R ecorded Status: Recorded on: 03/11/20 16 3:18PM;D iscontin ued Status: Disconti nued on: 04/24/20 16 1:13PM;U ser: gilvinj; Est. Completi on: 04/10/20 16 Not Available Not Available Not Available ciproflox acin 500 mg tablet TK 1 T PO Q 12 H FOR 10 DAYS 06/20 completed Not Available Not Available Not Available sulfameth oxazole 800 mg-trimet hoprim 160 mg tablet TAKE 1 TABLET BY MOUTH TWICE DAILY FOR 7 DAYS active Not Available Not Available No t Available acetamino phen 500 mg tablet 04/03 completed Not Available Not Available Not Available spironola ctone 25 mg tablet Take 1 tablet every day by oral route for 30 days. 05/27 completed Not Available Not Available Not Available butalbita l-acetami nophen-ca ffeine 50 mg-325 mg-40 mg tablet TAKE 1 TABLET BY MOUTH EVERY FOUR (4) HOURS active Not Available Not Available No t Available amoxicill in 500 mg tablet take 1 tablet (500 mg) by oral route every 8 hours for 10 days 10/24 completed amoxicil castillo 500 mg oral tablet;R ecorded Status: Recorded on: 08/15/20 09 11:25AM; Disconti nued Status: Disconti nued on: 10/24/20 09 2:13PM;U ser: neuss;Es t. Completi on: 08/25/20 09 Not Available Not Available Not Available Depo-Medr ol 80 mg/mL suspensio n for injection Take 1 mL by injectio n route. 02/01 completed Not Available Not Available Not Available Gentak 0.3 % (3 mg/gram) eye ointment APPLY A SMALL AMOUNT (1/2 INCH) TO THE LOWER LID OF THE AFFECTED EYE(S) BY OPHTHALM IC ROUTE 2 TIMES PER DAY x 7 days 02/05 completed Not Available Not Available Not Available lamotrigi ne 25 mg tablet 03/20 completed Not Available Not Available Not Available pantopraz ole 20 mg tablet,de layed release Take 1 tablet every day by oral route for 14 days. 07/06 completed Not Available Not Available Not Available levothyro xine 100 mcg tablet TAKE 1 TABLET BY MOUTH EVERY DAY active Not Available Not Available No t Available terbinafi ne HCl 250 mg tablet Take 1 tablet every day by oral route for 90 days. 08/13 completed Not Available Not Available Not Available levothyro xine 88 mcg tablet TAKE ONE (1) TABLET BY MOUTH EVERY DAY 11/30 completed Not Available Not Available Not Available ceftriaxo ne 1 gram solution for injection Take 1 g by injectio n route. 12/14 completed Not Available Not Available Not Available lancets use as directed 02/01 completed Lancets; Recorded Status: Recorded on: 11/30/19 15 9:22AM;D iscontin ued Status: Disconti nued on: 02/02/20 15 8:52AM;U ser: taylorc; Est. Completi on: 02/29/20 15;Indic ation: GDM - (-5);Tessa nted: 11/30/19 15 Not Available Not Available Not Available Vitamin D3 10 mcg (400 unit) tablet TAKE ONE (1) & (1/2) TABLETS BY MOUTH EVERY DAY 04/03 completed Not Available Not Available Not Available amitripty line 25 mg tablet Take 1 tablet every day by oral route for 30 days. 08/14 completed Not Available Not Available Not Available methocarb skip 750 mg tablet Take 1 tablet 3 times a day by oral route for 14 days. 07/06 completed Not Available Not Available Not Available Zoloft 50 mg tablet take 1 tablet (50 mg) by oral route once daily 02/01 completed Zoloft 50 mg oral tablet;P rescribe Status: Prescrib ed on: 06/01/20 14 10:01AM; Disconti nued Status: Disconti nued on: 02/02/20 15 8:52AM;U ser: elaine ;Pharmac yVerifie d: 06/01/20 14 10:01AM Not Available Not Available Not Available dextroamp hetamine- amphetami ne ER 20 mg 24hr capsule,e xtend release TAKE ONE (1) CAPSULE EVERY DAY BY ORAL ROUTE FOR 30 DAYS. 08/13 completed Not Available Not Available Not Available antipyrin e-benzoca ine 5.4 %-1.4 % ear drops 2-3 qtts q 6 hours 05/22 completed antipyri ne-benzo eduard 5.4-1.4 % otic drops;Re corded Status: Recorded on: 08/15/20 09 11:25AM; Disconti nued Status: Disconti nued on: 05/22/20 10 12:57PM; User: [email or web address];In dication : Earache - (94.2367 00) Not Available Not Available Not Available dexametha sone 1 mg tablet TAKE 6 TABLETS BY MOUTH ONCE FOR 1 DOSE. 01/18 completed Not Available Not Available Not Available Flagyl 500 mg tablet take 1 tablet (500 mg) by oral route every 12 hours for 7 days 02/06 completed Flagyl 500 mg oral tablet;R ecorded Status: Recorded on: 01/24/20 16 11:47AM; Disconti nued Status: Disconti nued on: 02/07/20 16 12:49PM; User: Allan Garvin on: 01/31/20 16;Print ed: 01/24/20 16 Not Available Not Available Not Available baclofen 10 mg tablet take 1 tablet (10 mg) by oral route 3 times per day 08/06 completed baclofen 10 mg oral tablet;R ecorded Status: Recorded on: 08/06/20 15 3:15PM;D iscontin ued Status: Disconti nued on: 08/06/20 15 3:47PM;U ser: gilvinj Not Available Not Available Not Available doxycycli ne monohydra te 100 mg capsule TAKE ONE (1) CAPSULE TWICE A DAY BY ORAL ROUTE FOR 10 DAYS. 12/05 completed Not Available Not Available Not Available cephalexi n 500 mg capsule Take 1 capsule twice a day by oral route for 10 days. 12/07 completed Not Available Not Available Not Available trazodone 150 mg tablet Take 0.5 tablets by oral route for 14 days. 07/06 completed Not Available Not Available Not Available oseltamiv ir 75 mg capsule TAKE 1 CAPSULE BY MOUTH TWICE DAILY FOR 5 DAYS 01/18 completed Not Available Not Available Not Available levothyro xine 125 mcg tablet Take 1 Tablet by mouth once daily. 2024 active Not Available Not Available Not Avai lable buspirone 10 mg tablet take 1 tablet (10 mg) by oral route 2 times per day 10/16 completed buspiron e 10 mg oral tablet;P rescribe Status: Prescrib ed on: 06/27/20 16 1:44PM;U ser: grayn;Es t. Completi on: 08/26/20 16;Indic ation: Generali zed Anxiety Disorder - ();Phar Tamra fied: 06/27/20 16 1:44PM Not Available Not Available Not Available minocycli ne 50 mg capsule TAKE ONE (1) CAPSULE BY MOUTH TWO TIMES A DAY. 11/23 completed Not Available Not Available Not Available gabapenti n 300 mg capsule TAKE 1 CAPSULE BY MOUTH 3 TIMES A DAY FOR 7 DAYS. 07/06 completed Not Available Not Available Not Available diclofena c sodium 75 mg tablet,de layed release take 1 tablet (75 mg) by oral route 2 times per day for 14 days 01/21 completed diclofen ac sodium 75 mg oral tablet,d elayed release (DR/EC); Prescrib e Status: Prescrib ed on: 10/16/20 15 2:42PM;D iscontin ued Status: Disconti nued on: 01/22/20 16 3:55PM;U ser: grayn;Es t. Completi on: 10/30/20 15;Indic ation: Osteoart hritis - (23.8894 68);Phar macyVeri fied: 10/16/20 15 2:42PM Not Available Not Available Not Available hydroxyzi ne HCl 25 mg tablet take one to two tabs one hour before bedtime prn insomnia 08/12 completed hydroxyz ine HCl 25 mg oral tablet;R ecorded Status: Recorded on: 04/14/20 12 3:49PM;D iscontin ued Status: Disconti nued on: 08/12/20 12 2:39PM;U ser: blumc;Es t. Completi on: 07/13/20 12 Not Available Not Available Not Available Tussin DM 10 mg-100 mg/5 mL oral liquid 01/18 completed Not Available Not Available Not Available alcohol swabs Apply 1 pad 4 times a day by topical route as directed for 30 days. active Not Available Not Available No t Available zolpidem 5 mg tablet one at bedtime as needed 02/05 completed Not Available Not Available Not Available furosemid e 20 mg tablet take 1 tablet (20 mg) by oral route once daily as needed 11/23 completed Not Available Not Available Not Available Levaquin 500 mg tablet Take 1 tablet every 24 hours by oral route for 7 days. 02/01 completed Not Available Not Available Not Available ergocalci ferol (vitamin D2) 1,250 mcg (50,000 unit) capsule Take 1 Capsule by mouth once weekly for 14 days. active Not Available Not Available No t Available lorazepam 1 mg tablet Take 1 tablet twice a day by oral route as needed for 30 days. 02/05 completed Not Available Not Available Not Available prednison e 5 mg tablets in a dose pack TAKE DIRECTED 02/14 completed Not Available Not Available Not Available ibuprofen 600 mg tablet 04/03 completed Not Available Not Available Not Available oxycodone -acetamin ophen 7.5 mg-325 mg tablet 10/16 completed Not Available Not Available Not Available lovastati n 20 mg tablet take 1 tablet (20 mg) by oral route once daily with evening meal for 30 days 06/24 completed lovastat in 20 mg oral tablet;R ecorded Status: Recorded on: 04/26/20 09 10:02AM; Disconti nued Status: Disconti nued on: 06/24/20 10 11:27AM; User: Deon Garvin on: 07/25/20 09;Indic ation: Hypercho lesterol emia - (9875 00);Prin maranda: 04/26/20 Not Available Not Available Not Available levofloxa gualberto 750 mg tablet TAKE 1 TABLET BY MOUTH DAILY. active Not Available Not Available No t Available methylpre dnisolone 4 mg tablets in a dose pack TAKE 6 TABLETS ON DAY 1,THEN 5 TABS ON DAY 2,THEN 4 TABS ON DAY 3, 3 TABS ON DAY 4,THEN 2 TABS ON DAY 5 AND 1 TAB ON DAY 6. *TAKE WITH FOOD* 04/03 completed Not Available Not Available Not Available docusate sodium 250 mg capsule 04/03 completed Not Available Not Available Not Available celecoxib 100 mg capsule TAKE 1 CAPSULE TWICE A DAY BY MOUTH FOR 7 DAYS. 08/15 completed Not Available Not Available Not Available bromphenchago ramine-ps eudoephed rine-DM 2 mg-30 mg-10 mg/5 mL oral syrup TAKE 10 ML BY MOUTH EVERY 4 HOURS FOR 5 DAYS. 07/15 completed Not Available Not Available Not Available ondansetr on 4 mg disintegr ating tablet DISSOLVE 1 TABLET ON THE TONGUE 6 TO 8 HOURS active Not Available Not Available No t Available cefdinir 300 mg capsule Take 1 capsule every 12 hours by oral route for 10 days. 10/28 completed Not Available Not Available Not Available fluoxetin e 20 mg capsule TAKE 1 CAPSULE BY MOUTH DAILY. TAKE 1 40MG CAP + 1 20MG CAP FOR TOTAL DOSE OF 60MG DAILY active Not Available Not Available No t Available fluticaso ne propionat e 50 mcg/actua tion nasal spray,[employer] pension INSTILL ONE SPRAY IN EACH NOSTRIL TWICE DAILY 04/03 completed Not Available Not Available Not Available doxycycli ne hyclate 100 mg tablet Take 1 tablet twice a day by oral route. 02/14 completed Not Available Not Available Not Available lamotrigi ne 100 mg tablet Take 1 tablet every day by oral route as needed for 30 days. 10/30 completed Not Available Not Available Not Available Paxil 30 mg tablet take 1 tablet (30 mg) by oral route once daily for 30 days 05/22 completed Paxil 30 mg oral tablet;P rescribe Status: Prescrib ed on: 03/21/20 14 5:19PM;D iscontin ued Status: Disconti nued on: 05/22/20 14 3:39PM;U ser: [email or web address]; Est. Completi on: 04/20/20 14;Indic ation: Major Depressi ve Disorder - (.2962 00);Stacy Barboza fied: 03/21/20 14 5:19PM Not Available Not Available Not Available Ortho Tri-Cycle n (28) 0.18 mg(7)/0.2 15mg(7)/0 .25 mg(7)-0.0 35 mg tablet take 1 tablet by oral route once daily for 28 days 06/01 completed Ortho Tri-Cycl en (28) 0.18/0.2 15/0.25 mg-35 mcg (28) oral tablet;P rescribe Status: Prescrib ed on: 01/13/20 14 12:17PM; Disconti nued Status: Disconti nued on: 06/01/20 14 9:08AM;U ser: elzbieta; Est. Completi on: 01/12/20 15;Indic ation: Pregnanc y Contrace ption - (.[id number]);Stacy Barboza fied: 01/13/20 14 12:17PM Not Available Not Available Not Available ipratropi um bromide 0.02 % solution for inhalatio n Inhale 2.5 mL by inhalati on route. 02/01 completed Not Available Not Available Not Available naproxen 500 mg tablet TAKE ONE (1) TABLET(S ) TWICE A DAY BY ORAL ROUTE NEEDED FOR 30 DAYS. 11/23 completed Not Available Not Available Not Available spironola ctone 50 mg tablet Take 1 tablet every day by oral route for 30 days. 11/23 completed Not Available Not Available Not Available diazepam 5 mg tablet Take 1 tablet every 12 hours by oral route. 03/20 completed Not Available Not Available Not Available levothyro xine 112 mcg tablet take 1 tablet (112 mcg) by oral route once daily for 30 days 12/05 completed Not Available Not Available Not Available amoxicill in 875 mg-potass ium clavulana te 125 mg tablet take 1 tablet by oral route every 12 hours for 7 days 08/15 completed Not Available Not Available Not Available amoxicill in 500 mg-potass ium clavulana te 125 mg tablet TAKE ONE TABLET BY MOUTH THREE TIMES DAILY FOR 7 DAYS 07/15 completed Not Available Not Available Not Available Ventolin HFA 90 mcg/actua tion aerosol inhaler Inhale 2 puffs every 4 hours by inhalati on route as needed. 2024 active Not Available Not Available Not Avai lable oxycodone 5 mg tablet 04/03 completed Not Available Not Available Not Available hydroxyzi ne pamoate 25 mg capsule 1 po Q hs prn 04/03 completed Not Available Not Available Not Available cholecalc iferol (vitamin D3) 25 mcg (1,000 unit) capsule Take 1 capsule every day by oral route. 08/13 completed Not Available Not Available Not Available Cleocin T 1 % topical gel apply a thin layer to the affected area(s) by topical route 2 times per day for 30 days 12/26 completed Cleocin T 1 % topical gel;Pres cribe Status: Prescrib ed on: 11/28/19 15 9:45AM;D iscontin ued Status: Disconti nued on: 12/26/19 15 9:15AM;U ser: kerrs;Es t. Completi on: 01/28/20 15;Indic ation: Acne Vulgaris - ([phone] 00);Phar macCrystaleri fied: 11/28/19 15 9:45AM Not Available Not Available Not Available Benzaclin 1 %-5 % topical gel apply to the affected area(s) by topical route 2 times per day in the morning and evening 01/28 completed Benzacli n 1-5 % topical gel;Rene rded Status: Recorded on: 11/12/20 12 12:16PM; Disconti nued Status: Disconti nued on: 01/29/20 13 9:48AM;U ser: genet Dowdti on: Acne Vulgaris - ([id number]);Prin maranda: 11/12/20 12 Not Available Not Available Not Available Test Strips test fasting and 2 hours after breakfas t, lunch, and supper 02/01 completed test strips;R ecorded Status: Recorded on: 11/30/19 15 9:22AM;D iscontin ued Status: Disconti nued on: 02/02/20 15 8:52AM;U ser: taylorc; Est. Completi on: 02/29/20 15;Indic ation: - (-5);Tessa nted: 11/30/19 15 Not Available Not Available Not Available NuvaRing 0.12 mg-0.015 mg/24 hr vaginal insert 1 vaginal ring by vaginal route once a month leave in place for 28 days then remove for 7 days 12/15 completed NuvaRing 0.12-0.0 15 mg/24 hr vaginal ring;Pre scribe Status: Prescrib ed on: 09/02/20 13 11:46AM; Disconti nued Status: Disconti nued on: 12/15/19 14 1:28PM;U ser: otilio; Est. Completi on: 09/30/20 13;Pharm acyVerif ied: 09/02/20 13 11:46AM Not Available Not Available Not Available escitalop jyotsna 10 mg tablet take 1 tablet (10 mg) by oral route once daily 07/30 completed Not Available Not Available Not Available escitalop jyotsna 20 mg tablet TAKE 1 TABLET BY MOUTH DAILY. 02/05 completed Not Available Not Available Not Available atomoxeti ne 40 mg capsule Take 1 capsule every day by oral route for 30 days. 02/01 completed Not Available Not Available Not Available Finacea 15 % topical gel apply a thin layer to the affected area(s) by topical route 2 times per day 07/27 completed Finacea 15 % topical gel;Pres cribe Status: Prescrib ed on: 06/27/20 16 1:44PM;U ser: claudia;Es t. Completi on: 07/27/20 16;Indic ation: Acne Rosacea - (12.6953 02);Stacy Barboza fied: 06/27/20 16 1:44PM Not Available Not Available Not Available minocycli ne 50 mg tablet take 1 tablet (50 mg) by oral route 2 times per day 02/05 completed minocycl ine 50 mg oral tablet;P rescribe Status: Prescrib ed on: 05/15/20 16 4:22PM;U ser: grayn;Es t. Completi on: 08/13/20 16;Pharm acyVerif ied: 05/15/20 16 4:22PM Not Available Not Available Not Available Abilify 5 mg tablet take 1 tablet by oral route daily 05/15 completed Abilify 5 mg oral tablet;P rescribe Status: Prescrib ed on: 05/15/20 16 4:24PM;D iscontin ued Status: Disconti nued on: 05/15/20 16 4:37PM;U ser: sharann;Es t. Completi on: 06/14/20 16;Indic ation: Hermelinda associat ed with Bipolar Disorder - (05.2964 00);Stacy Barboza fied: 05/15/20 16 4:24PM Not Available Not Available Not Available rosuvasta tin 20 mg tablet TAKE 1 TABLET BY MOUTH EVERY DAY 01/19 completed Not Available Not Available Not Available bupropion HCl XL 300 mg 24 hr tablet, extended release 03/20 completed Not Available Not Available Not Available bupropion HCl XL 150 mg 24 hr tablet, extended release 03/20 completed Not Available Not Available Not Available Ortho-Cyc josh (28) 0.25 mg-35 mcg tablet take 1 tablet by oral route once daily for 28 days 10/16 completed Ortho-Cy clen (28) 0.25-35 mg-mcg oral tablet;P rescribe Status: Prescrib ed on: 04/04/20 15 10:26AM; Disconti nued Status: Disconti nued on: 10/16/20 15 2:38PM;U ser: [email or web address]; Est. Completi on: 07/25/20 15;Pharm acyVerif ied: 04/04/20 15 10:26AM Not Available Not Available Not Available nitrofura ntoin monohydra te/macroc rystals 100 mg capsule TAKE 1 CAPSULE BY MOUTH 2 TIMES DAILY FOR 5 DAYS 07/27 completed Not Available Not Available Not Available Cymbalta 60 mg capsule,d elayed release take 1 capsule (60 mg) by oral route once daily 05/22 completed Cymbalta 60 mg oral capsule, delayed release( DR/EC);R ecorded Status: Recorded on: 05/15/20 16 4:37PM;D iscontin ued Status: Disconti nued on: 05/22/20 16 12:51PM; User: claudia;Kathe blandon Completchago on: 06/14/20 16;Indic ation: Chronic Musculos keletal Pain - (13.7291 05) Not Available Not Available Not Available Flovent HFA 110 mcg/actua tion aerosol inhaler INHALE ONE (1) PUFF TWICE DAILY NEEDED 04/03 completed Not Available Not Available Not Available tizanidin e 4 mg capsule one po QHS 02/01 completed tizanidi ne 4 mg oral capsule; Prescrib e Status: Prescrib ed on: 05/22/20 14 3:43PM;D iscontin ued Status: Disconti nued on: 02/02/20 15 8:52AM;U ser: gored;Es t. Completi on: 08/20/20 14;Pharm acyVerif ied: 05/22/20 14 3:43PM Not Available Not Available Not Available metronida zole 1 % topical gel apply to the affected area(s) by topical route once daily ; rub in gently and complete ly 05/06 completed Not Available Not Available Not Available promethaz ine-DM one tsp q 4 hrs prn cough 10/05 completed phenerga n exp one tsp. q 4 hrs prn;Rene rded Status: Recorded on: 08/15/20 12 9:29AM;D iscontin ued Status: Disconti nued on: 10/05/20 12 4:11PM;U ser: morrisj; Est. Completi on: 08/22/20 12;Indic ation: cough - (-5) Not Available Not Available Not Available Augmentin 2 tsp bid 11/25 completed augmenti n 250mg;Re corded Status: Recorded on: 11/11/20 11 1:41PM;D iscontin ued Status: Disconti nued on: 11/25/19 12 11:44AM; User: sarah oakleyEstFarshad Completi on: 12/02/19 12;Indic ation: - (-5);Tessa nted: 11/11/20 11 Not Available Not Available Not Available Requip 1 qhs 11/05 completed requip 1 mg;Recor ded Status: Recorded on: 08/27/20 11 9:10AM;D iscontin ued Status: Disconti nued on: 11/05/20 11 2:42PM;U ser: sarah oakleyEstFarshad Sullivan on: 11/25/19 12;Indic ation: None Selected - (-5);Tessa nted: 08/27/20 11 Not Available Not Available Not Available Adipex-P 1 qd 04/24 completed adipex;R ecorded Status: Recorded on: 12/27/19 11 9:42AM;D iscontin ued Status: Disconti nued on: 04/24/20 11 1:09PM;U ser: sarah oakleyEstFarshad Completchago on: 01/16/20 11 Not Available Not Available Not Available hydrochlo rothiazid e one dailly 08/06 completed hctz 12.5 mg.;Rene rded Status: Recorded on: 07/24/20 15 11:49AM; Disconti nued Status: Disconti nued on: 08/06/20 15 3:47PM;U ser: alysia EstFarshad Sullivan on: 09/22/20 15;Indic ation: edema - (-5) Not Available Not Available Not Available Minocin 1 qd 08/12 completed minocin 100mg;Re corded Status: Recorded on: 06/09/20 12 2:19PM;D iscontin ued Status: Disconti nued on: 08/12/20 12 2:39PM;U ser: markesbe ryh;Est. Completi on: 07/09/20 12;Indic ation: - (-5);Tessa nted: 06/09/20 12 Not Available Not Available Not Available Ambien 1 qhs 10/05 completed ambien 10 mg;Recor ded Status: Recorded on: 02/17/20 12 7:54AM;D iscontin ued Status: Disconti nued on: 10/05/20 12 4:11PM;U ser: markesbe ryh;Est. Completi on: 03/09/20 12;Indic ation: None Selected - (-5) Not Available Not Available Not Available Macrobid 1 bid 06/10 completed macrobid 100mg;Re corded Status: Recorded on: 06/09/20 12 2:19PM;D iscontin ued Status: Disconti nued on: 06/10/20 12 1:42PM;U ser: markesbe ryh;Est. Completi on: 06/23/20 12;Indic ation: - (-5);Tessa nted: 06/09/20 12 Not Available Not Available Not Available Nystatin Vaginal use qhs 11/25 completed mycostat in vag cream 60mg;Rec orded Status: Recorded on: 11/11/20 11 1:41PM;D iscontin ued Status: Disconti nued on: 11/25/19 12 11:44AM; User: sarah cruz;Est. Completi on: 11/18/19 12;Indic ation: - (-5);Tessa nted: 11/11/20 11 Not Available Not Available Not Available Phenergan VC 1 tsp qid 05/22 completed phenerga n with vc;Recor ded Status: Recorded on: 01/29/20 10 3:45PM;D iscontin ued Status: Disconti nued on: 05/22/20 10 12:57PM; User: sarah cruz;Est. Completi on: 02/26/20 10;Indic ation: - (-5);Tessa nted: 01/29/20 10 Not Available Not Available Not Available Doxycycli ne one bid 10/25 completed doxycycl ine 100 mg.;Rene rded Status: Recorded on: 08/15/20 12 9:29AM;D iscontin ued Status: Disconti nued on: 10/25/20 12 8:31AM;U ser: reece; Est. Completi on: 08/25/20 12;Indic ation: bron - (-5) Not Available Not Available Not Available Lexapro one daily 01/21 completed lexapro 20 mg.;Rene rded Status: Recorded on: 07/24/20 15 11:49AM; Disconti nued Status: Disconti nued on: 01/22/20 16 3:55PM;U ser: reece; Est. Completi on: 10/22/20 15;Indic ation: depressi on - (-5) Not Available Not Available Not Available Glucomete r-M use as directed 02/01 completed Glucomet er;Recor ded Status: Recorded on: 11/30/19 15 9:22AM;D iscontin ued Status: Disconti nued on: 02/02/20 15 8:52AM;U ser: krissy; Est. Completi on: 12/30/19 15;Indic ation: use as directed - (-5);Tessa nted: 11/30/19 15 Not Available Not Available Not Available quetiapin e 50 mg tablet take 1 tablet (50 mg) by oral route 1 times per day 02/06 completed quetiapi ne 50 mg oral tablet;R ecorded Status: Recorded on: 01/23/20 16 10:22AM; Disconti nued Status: Disconti nued on: 02/07/20 16 1:13PM;U ser: [email or web address] Not Available Not Available Not Available fenofibra te nanocryst allized 145 mg tablet TAKE 1 TABLET BY MOUTH ONCE DAILY. active Not Available Not Available No t Available cholecalc iferol (vitamin D3) 25 mcg (1,000 unit) tablet TAKE 1 TABLET BY MOUTH EVERY DAY 08/13 completed Not Available Not Available Not Available Fish Oil 1,000 mg capsule take 2 capsules by oral route 2 times a day for 30 days 04/24 completed Fish Oil 1,000 mg oral capsule; Recorded Status: Recorded on: 07/17/20 10 2:09PM;D iscontin ued Status: Disconti nued on: 04/24/20 11 1:09PM;U ser: sarah cruz;Est. Completi on: 12/14/19 11;Print ed: 07/17/20 10 Not Available Not Available Not Available FeroSul 325 mg (65 mg iron) tablet Take 1 tablet twice a day by oral route for 14 days. 07/06 completed Not Available Not Available Not Available Mucinex 1,200 mg tablet, extended release TAKE 1 TABLET BY MOUTH EVERY 12 HOURS 08/13 completed Not Available Not Available Not Available Mucinex DM 60 mg-1,200 mg tablet,ex tended release 12 hr Take 1 tablet twice a day by oral route for 30 days. 12/14 completed Not Available Not Available Not Available Pristiq 50 mg tablet,ex tended release take 1 tablet (50 mg) by oral route once daily 05/15 completed Pristiq 50 mg oral tablet extended release 24 hr;Presc ribe Status: Prescrib ed on: 05/15/20 16 4:23PM;D iscontin ued Status: Disconti nued on: 05/15/20 16 4:37PM;U ser: grayn;Es t. Completi on: 06/14/20 16;Indic ation: Major Depressi ve Disorder - (05.2962 00);Stacy Barboza fied: 05/15/20 16 4:23PM Not Available Not Available Not Available Seroquel XR 50 mg tablet,ex tended release take 1 tablet by oral route daily 01/22 completed Seroquel XR 50 mg oral tablet extended release 24 hr;Presc ribe Status: Prescrib ed on: 01/22/20 16 3:57PM;D iscontin ued Status: Disconti nued on: 01/23/20 16 10:22AM; User: grayn;Es t. Completi on: 03/22/20 16;Indic ation: Depressi on Treatmen t Adjunct - ();Stacy Barboza fied: 01/22/20 16 3:57PM Not Available Not Available Not Available Mucinex Fast-Max DM Max 5 mg-100 mg/5 mL oral liquid Take 20 mL every 4 hours by oral route as needed. 05/22 completed Not Available Not Available Not Available OneTouch Verio test strips active Not Available Not Available Not Available Belviq 10 mg tablet take 1 tablet (10 mg) by oral route 2 times per day 09/06 completed Not Available Not Available Not Available Fioricet 50 mg-300 mg-40 mg capsule Take 1 capsule every 4 hours by oral route for 30 days. 05/22 completed Not Available Not Available Not Available Jublia 10 % topical solution with applicato r apply to affected toenail( s) by topical route once daily for 48 weeks 10/16 completed Jublia 10 % topical solution with applicat or;Recor ded Status: Recorded on: 05/15/20 16 4:15PM;U ser: grayn;Es t. Completi on: 02/18/20 19;Indic ation: Toenail Onychomy cosis - ();Prin maranda: 05/15/20 16 Not Available Not Available Not Available Contrave 8 mg-90 mg tablet,ex tended release take 2 tablets by oral route 2 times per day in the morning and evening 08/06 completed Contrave 8-90 mg oral tablet extended release; Recorded Status: Recorded on: 04/03/20 15 2:37PM;D iscontin ued Status: Disconti nued on: 08/06/20 15 3:15PM;U ser: grayn;Es t. Completi on: 05/03/20 15;Indic ation: Weight Loss Manageme nt for Obese Patient (BMI >= 30) - ();Prin maranda: 04/03/20 15 Not Available Not Available Not Available Saxenda 3 mg/0.5 mL (18 mg/3 mL) subcutane ous pen injector Start: 0.6 mg SC qd x1wk, then may incr. dose by 0.6 mg/day qwk; Max: 3 mg/day; Info: retitrat e from 0.6 mg SC qd if tx interrup maranda for >3 days 04/22 completed Not Available Not Available Not Available Viibryd 10 mg (7)-20 mg (23) tablets in a dose pack take dose pack as directed 05/21 completed Not Available Not Available Not Available OneTouch Verio Flex Meter active Not Available Not Available Not Available Trintelli x 10 mg tablet take 1 tablet (10 mg) by oral route once daily at the same time each day 07/30 completed Not Available Not Available Not Available Isibloom 0.15 mg-0.03 mg tablet TAKE 1 TABLET BY MOUTH EVERY DAY 05/22 completed Not Available Not Available Not Available OneTouch Delica Plus Lancet 33 gauge active Not Available Not Available Not Available Wegovy 0.25 mg/0.5 mL subcutane ous pen injector Inject by subcutan eous route for 30 days. 04/03 completed Not Available Not Available Not Available Mounjaro 2.5 mg/0.5 mL subcutane ous pen injector 01/18 completed Not Available Not Available Not Available Zepbound 2.5 mg/0.5 mL subcutane ous pen injector Inject 2.5 mg under the skin once weekly. 01/18 completed Not Available Not Available Not Available Vitals Date Recorded Body height Body mass index (BMI) Body weight Heart rate Oxygen saturation Oxygen saturation in Arterial blood by Pulse oximetry Respiratory rate Pain severity - 0-10 verbal numeric rating [Score] - Reported Systolic And Diastolic Provider Name and Address Organization Details Last Updated DateTime 4 165.1 cm 44.8 kg/m2 677699. 35 g 78 /min 97 % 97 % 18 /min 6 122/82 mm[Hg] Crystal Feng [place] - [facility] 4 09:48:01 Date Recorded Body height Body mass index (BMI) Body weight Heart rate Oxygen saturation Oxygen saturation in Arterial blood by Pulse oximetry Respiratory rate Pain severity - 0-10 verbal numeric rating [Score] - Reported Provider Name and Address Organization Details Last Updated DateTime 3 165.1 cm 44.6 kg/m2 659891. 76 g 90 /min 98 % 98 % 18 /min 1 Lili BROWNLEE - [facility] 3 13:48:09 Date Recorded Body height Body mass index (BMI) Body weight Heart rate Oxygen saturation Oxygen saturation in Arterial blood by Pulse oximetry Respiratory rate Pain severity - 0-10 verbal numeric rating [Score] - Reported Body temperature Systolic And Diastolic Provider Name and Address Organization Details Last Updated DateTime 3 165.1 cm 41.8 kg/m2 733169. 68 g 78 /min 98 % 98 % 18 /min 2 97.9 [degF] 124/80 mm[Hg] Lili BROWNLEE - [facility] 3 13:30:58 Date Recorded Body height Body mass index (BMI) Body weight Heart rate Oxygen saturation Oxygen saturation in Arterial blood by Pulse oximetry Respiratory rate Pain severity - 0-10 verbal numeric rating [Score] - Reported Systolic And Diastolic Provider Name and Address Organization Details Last Updated DateTime 4 165.1 cm 37.3 kg/m2 824697. 69 g 76 /min 98 % 98 % 18 /min 0 124/78 mm[Hg] Lili BROWNLEE - [facility] 4 16:08:53 Date Recorded Body height Body mass index (BMI) Body weight Heart rate Oxygen saturation Oxygen saturation in Arterial blood by Pulse oximetry Respiratory rate Pain severity - 0-10 verbal numeric rating [Score] - Reported Systolic And Diastolic Provider Name and Address Organization Details Last Updated DateTime 3 165.1 cm 45.4 kg/m2 996310. 72 g 102 /min 98 % 98 % 18 /min 0 124/82 mm[Hg] Lili BROWNLEE - [facility] 3 15:00:40 Social History Question Answer Notes LastModified by Organizat ion Details LastModified Time Tobacco Smoking Status Former Smoker quit sep 2019 Shante eason RAIMUNDO - [facility] 12/13/2019 12:39:19 Able To Swim? Yes Information not available 08/13/2021 Do You Have An Advance Directive? No [email or web address] Information not available 05/21/2017 Do You Wear A Helmet When Biking? Yes Information not available 08/13/2021 Are You Blind Or Do You Have Difficulty Seeing? No Information not available 08/13/2021 Is Blood Transfusion Acceptable In An Emergency? Yes Information not available 05/22/2022 What Is Your Level Of Caffeine Consumption? Occasional Information not available 09/12/2016 In The 14 Days Before Symptom Onset, Have You Had Close Contact With A Laboratory-confir med COVID-19 While That Case Was Ill? No Information not available 05/22/2022 In The 14 Days Before Symptom Onset, Have You Had Close Contact With A Person Who Is Under Investigation For COVID-19 While That Person Was Ill? No Information not available 05/22/2022 Have You Been To An Area Known To Be High Risk For COVID-19? No Information not available 05/22/2022 Are You Deaf Or Do You Have Serious Difficulty Hearing? No Information not available 05/21/2017 What Type Of Diet Are You Following? REGULAR [email or web address] Information not available 05/21/2017 Have You Processed Blood Or Body Fluids From An Ebola Virus Disease Patient Without Appropriate PPE? No Information not available 05/22/2022 Do You Reside In Or Have You Traveled To An Area Where Ebola Virus Transmission Is Active? No Information not available 08/13/2021 What Is The Highest Grade Or Level Of School You Have Completed Or The Highest Degree You Have Received? [id number] Information not available 05/22/2022 Swimming/diving Yes Informati on not available 08/13/2021 Have There Been Any Changes To Your Family Or Social Situation? No Information no t available 05/22/2022 What Is The Fluoride Status Of Your Home? Fluoridated Information not available 05/22/2022 When Did You Quit Smoking? 1-5yearssinjaison teague Information not available 05/22/2022 Hard Of Hearing Or Deaf In One Or Both Ears? No Information not available 08/13/2021 Have You Recently Or Are You Planning To Travel To An Area With Zika Virus? No Information not available 05/22/2022 Legally Blind In One Or Both Eyes? No Information no t available 08/13/2021 Live Alone Or With Others? With Others Information not available 08/13/2021 Do You Have A Medical Power Of Bow Maker Machine Tender? No Information not available 05/22/2022 What Was The Date Of Your Most Recent Tobacco Screening? 08/15/2024 Information not available 08/15/2024 How Many Children Do You Have? 2 Information not available 05/21/2017 What Is Your Current Pack Years? 10-19packyears [email or web address] Information not available 01/26/2023 Do You Use Protection During Sex? No Information not available 05/22/2022 Do You Use Protection Against STDs? No Information not available 05/22/2022 What Is Your Relationship Status? [email or web address] Information not available 05/21/2017 Seat Belts Used Routinely Yes Information not available 08/13/2021 Are You Sexually Active? Yes Information not available 05/22/2022 Smoke Alarm In Home Yes Information not available 08/13/2021 Do You Have Smoke And Carbon Monoxide Detectors In Your Home? Yes Information not available 05/22/2022 Are You Passively Exposed To Smoke? No Information no t available 05/22/2022 How Much Tobacco Do You Smoke? 0.5 PPD Information not available 09/12/2016 Do You Use Sunscreen Routinely? Yes [email or web address] Information not available 05/21/2017 Has Tobacco Cessation Counseling Been Provided? Yes Information not available 08/13/2021 On What Date Was Tobacco Cessation Counseling Provided? 08/15/2024 Information not available 08/15/2024 How Many Years Have You Smoked Tobacco? 10 Information not available 09/12/2016 Do You Have Difficulty Walking Or Climbing Stairs? No Information not available 08/13/2021 What Contraceptive Method Was Reported At Start Of This Visit? None Information not available 05/22/2022 Do You Want To Talk About Contraception Or Prevention During Your Visit Today? No - This Question Does Not Apply To Me/I Prefer Not To Answer Information not available 05/22/2022 Sex: Female Functional Status Question Answer Note LastModified by Organizat ion Details LastModified Time Do you use any illicit or recreational drugs? No Information not available 05/22/2022 Do you or have you ever used any other forms of tobacco or nicotine? No Information not available 05/22/2022 What is your level of alcohol consumption? None Information not available 09/12/2016 Are you currently employed? Yes [email or web address] Information not available 05/21/2017 What is your status? Information no t available 05/22/2022 Are you able to walk independently without assistance or assistive devices? YESWOREST Information not available 08/13/2021 Do you have difficulty doing errands alone? No Information not available 08/13/2021 Are you able to care for yourself independently? 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 No Information not available 08/13/2021 What is your exercise level? Occasional Information not available 09/12/2016 Mental Status Question Answer Note LastModified by Organizat ion Details LastModified Time Do you feel stressed (tense, restless, nervous, or anxious, or unable to sleep at night)? [id number] Information not available 05/22/2022 Do you have difficulty concentrating, remembering or making decisions? No Information no t available 08/13/2021 Family History Relationship Description Onset Age of this Age Resolved Age Notes LastModified by Organization Details LastModified Time Maternal Grandmother Chronic obstructive pulmonary disease Not available 2015 16:05:57 Maternal Grandmother Congestive heart failure Not available 2020 11:38:46 Maternal Uncle Celiac disease Not available 2020 11:38:46 Unspecified Relation Celiac disease M.Cous in Not available 08/13/2021 11:38:46 Father Hypertensive disorder [email or web address] Not available 2018 12:31:04 Father Diabetes mellitus [email or web address] Not available 2018 12:31:17 Paternal Grandmother Hypertensive disorder [email or web address] Not available 2018 12:31:49 Paternal Grandmother Carcinoma of prostate Not available 2020 11:38:46 Maternal Grandfather Hypertensive disorder [email or web address] Not available 2018 12:31:57 Medical History Condition Response Pancreatitis N Other N Atrial Fibrillation N congenital heart disease N Blood Diseases N Hyperthyroidism N Blood Transfusion N Rheumatoid arthritis N Erectile Dysfunction N amputation N Skin Lesions N Depression Y Pneumonia N Incontinence N Murmur N Edema N Alzheimer's Disease N Migraine Headaches Y Tobacco Abuse N Anxiety Disorder Y Hemorrhoids N Obesity Y Vision or Eye Problems N Arthritis N Restless Leg Syndrome Y Polyps N Infertility N Carpal Tunnel N Acid Reflux (GERD) N Cancer N Varicosities N Stroke N Tendonitis N Crohn's Disease N Hypercholesterolemia N Skin Cancer N Headaches N Fibromyalgia N Irritable Bowel Syndrome N Anal Fissure N Kidney Disease N Heart Problems N Hospitalizations N Gallstones N Kidney or Bladder Problems N Goiter N Acne N Eating Disorder N Tiwari's Esophagus N Hypertriglyceridemia N Constipation N Embolism N Vitamin B12 Deficiency N Deviated Septum N AIDS/HIV N Myocardial Infarction N Asthma N Mitral Valve Disorders N Vertigo N Hepatitis N Thyroid Cancer N Neuropathy N History of DVT N Herniated Disc N Chicken Pox N Von Willebrands Disease N Thrombophilias N Breast Cancer N Hernia N Plantar Fasciitis N Hypothyroidism Y Lung Disease N Defects or Inherited Disease N Breast Problem N Ovarian Cyst N Anesthesia Complications N Testosterone Deficiency N Interstitial Cystitis N Congenital Anomalies N Hypoglycemia N Blood clot N Vitamin D Deficiency N Cellulitis N Endometriosis N Bladder or Kidney Problems N Fracture N Colorectal Cancer N Panic Disorder N Schizophrenia N Concussion N Spina Bifida N Osteoarthritis N Parkinson's Disease N Disc Protrusion N STI N Esophagitis N Angina N Thyroid Problems N GI Problems N ADD/ADHD N Anemia N Multiple Sclerosis N Abnormal PAP N Lumbago N Mental Illness N Psychiatric Illness N Diabetes N Ovarian Cancer N Degenerative Disc Disease N Seizures/Epilepsy N Hyperlipidemia Y Syncope N Insomnia N Eczema N Abuse/Domestic Violence N Attention Deficient Disorder N Dementia N Ulcerative colitis N Cerebrovascular Disease N Depression N Guillain-Hannibal N Sleep Apnea N Aneurysm N Bronchitis N Heart Disease N Hypertension N Pre-Eclampsia N Suicidal Ideation N Osteoporosis N Gynecological History Statement/Question Response Abnormal Pap N Flow Moderate Date of Last Mammogram Date of LMP 08/03/2024 On BCP's at Conception? Y STIs/STDs N HPV Vaccine N Duration of Flow (days) 4 Current Control Method Age at First Child 23 Last Annual Exam/Provider Frequency of Cycle (Q days) 30 Sexually Active? Y Menses Monthly Y Date of Last Pap Smear 09/25/2022 Sexual Problems? N LMP Approximate Desired Control Method None Obstetrics History GPAL:G 6 P 2 0 3 2 Type Value Full Term 2 Spontaneous 3 Living 2 Total 6 Immunizations Vaccine Type Date Status Note Provider Name and Address Organization Details Recorded Time influenza, unspecified formulation 09/04/20 11 completed Not Available [facility] 10/28/2023 14:49:25 Influenza, split virus, quadrivalent, preservative 09/25/20 22 cancelled patient objection Amanda Wilson, [facility] [employer] [address] [place], [address], [place] - [facility] 09/25/2022 20:05:14 Tdap 10/28/20 22 completed Floridalma Su null, [place] - [facility] 10/28/2022 10:05:57 Influenza, split virus, quadrivalent, preservative 09/29/20 16 completed Not Available [facility] 10/28/2023 14:49:25 Influenza, split virus, quadrivalent, preservative 09/30/20 17 completed Not Available [facility] 10/28/2023 14:49:25 influenza, unspecified formulation 09/15/20 18 completed Not Available [facility] 10/28/2023 14:49:25 Influenza, split virus, quadrivalent, preservative 08/19/20 19 completed Not Available [facility] 10/28/2023 14:49:25 Influenza, split virus, quadrivalent, preservative 08/17/20 20 completed Not Available [facility] 10/28/2023 14:49:25 Hep B, adult 09/07/20 07 completed Leonides eason, [place] - [facility] 01/26/2023 08:16:23 Past Encounters Encounter ID Performer Location Encounter Start Date Encounter Closed Date Diagnosis/Indication Diagnosis SNOMED-CT Code Diagnosis ICD10 Code Diagnosis IMO Codes Diagnosis Note [id number] Arturo Pandya MD [address] shanae [place]. [place] [id number] 09/12/2016 16:03:25 09/12/2016 16:54:13 Insomnia 553219520 G47.00 Rosacea 724328403 L71.9 Chronic anxiety 75461473 9 F41.9 Body mass index 30+ - obesity 637572321 Z68.39 weight loss and exercise [id number] Lucia Browne MD [address] [place] [address] 4 10/16/2016 08:26:41 10/16/2016 11:46:58 Insomnia 806733045 G47.00 Rosacea 565875616 L71.9 Renewal of prescription 984551436 Z76.0 Chronic anxiety 69205953 9 F41.9 Acute sinusitis 46881812 J01.90 Hyperlipid emia screening 695649701 Z13.030 [id number] Lucia Browne MD [address] [place] [address] 4 11/21/2016 11:12:19 11/21/2016 12:07:10 Chronic anxiety 367680838 F41.9 Insomnia 070693266 G47.0 0 Fatigue 33993336 R53.83 [id number] Shirin Morrissey [address] [place] [address] 4 03/20/2017 14:20:24 03/20/2017 15:28:12 Chronic anxiety 664543068 F41.9 Insomnia 300961481 G47.0 0 Hypothyroidism 53050854 E03.9 [id number] Shirin Morrissey [address] shanae Pena [place] [address] 4 05/21/2017 10:57:35 05/21/2017 12:09:38 Dysuria 52812246 R30.0 Urinary tr act infectious disease 00140163 N39.0 Body mass index 40+ - severely obese 755540258 Z68.41 Nicotine dependence 5629 4008 F17.200 Hyperglycemia 01995521 R 73.9 [id number] Shirin Morrissey [address] [place] [address] [address] 07/30/2017 09:31:48 07/30/2017 10:31:16 Insomnia 954642846 G47.00 Chronic anxiety 72223245 9 F41.9 Acute sinusitis 30968942 J01.90 Gastroesop hageal reflux disease 295375338 K21.9 [id number] Shirin Morrissey[address] [place] [address] 08/14/2017 14:54:31 08/14/2017 16:00:48 Renewal of prescription 644552609 Z76.0 Chronic anxiety 48739405 9 F41.9 Body mass index 40+ - severely obese 772252061 Z68.41 Nicotine dependence 5629 4008 F17.200 Long-term drug therapy 297283329 Z79.702 [id number] Shirin Morrissey[address] [place] [address] 10/30/2017 14:17:14 10/30/2017 15:34:59 Anxiety 49400005 F41.9 Depressive disorder 3548 9007 F32.9 Blepharitis 13928399 H01 .9 Fatigue 25440242 R53.83 [id number] Shirin [address] [address] 12/07/2017 14:31:03 12/07/2017 16:21:02 Body mass index 40+ - severely obese 519119062 Z68.41 Acute bronchitis 8537681 2 J20.9 Cough 99734158 R05 Chronic anxiety 88196806 9 F41.9 [id number] Shirin [address] [address] 02/05/2018 14:17:57 02/05/2018 15:26:18 Gastroesophageal reflux disease 397761660 K21.9 Polycystic ovaries 39521 008 E28.2 Chronic anxiety 03902272 9 F41.9 Insomnia 976707867 G47.0 0 Renewal of prescription 636692029 Z76.0 Anxiety 06613249 F41.9 Rosacea 882940607 L71.9 Body mass index 40+ - severely obese 463620187 Z68.41 Hypothyroidism 30244866 E03.9 Fatigue 04801065 R53.83 Cobalamin deficiency 190 983662 E53.8 Obesity 209730066 E66.9 [id number] Shirin [address] shanae Pena [address] 4 04/22/2018 08:04:15 04/22/2018 08:58:58 Chronic anxiety 177327170 F41.9 Paresthesi a of upper limb 09005741 R20.2 bilateral Polycystic ovaries 60588 008 E28.2 Edema 921795371 R60.9 [id number] Shirinremy Morrissey[address] sh[place]e [place]ena [place] [address] 4 05/27/2018 13:58:05 05/27/2018 17:35:23 General examination of patient 213119868 Z00.00 Body mass index 40+ - severely obese 472649385 Z68.41 [id number] Angi Berry[address] [place]e [place] [address] 4 08/31/2018 14:43:31 08/31/2018 15:47:53 Upper respiratory infection 77138007 J06.9 most likely viral [id number] Shirin [address] sh[place]e [place] [address] 4 09/06/2018 17:16:10 09/07/2018 15:26:35 Chronic anxiety 750443657 F41.9 Insomnia 086234045 G47.0 0 Body mass index 40+ - severely obese 332844497 Z68.41 Z68.42 [id number] Shirin Morrissey[address] [place] [address] 11/25/2018 15:48:41 11/25/2018 17:52:16 Cough 38232604 R05 Acute bronchitis 3958786 2 J20.9 Chronic anxiety 46016142 9 F41.9 Insomnia 660420422 G47.0 0 [id number] Shirin Short, [address] [place] [address] 12/14/2018 14:28:55 12/14/2018 15:55:56 Body mass index 40+ - severely obese 322188748 Z68.42 Attention deficit hyperactivity disorder 709871826 F90.9 Spasticity 714168957 R25 .2 [id number] Camila Darling [address] [place] [address] 01/12/2019 15:50:45 01/12/2019 16:36:22 Acute bacterial bronchitis 608607995 J20.9 Cough 62100136 R05 [id number] Jr Pascual MD [address] [place] [address] 02/01/2019 16:24:53 02/11/2019 14:14:10 Body mass index 40+ - severely obese 108592569 Z68.42 Unable to concentrate 60 344300 R41.840 Female hirsutism 1503675 9 L68.0 Chronic anxiety 09333205 9 F41.9 Major depr essive disorder 356536943 F32.9 [id number] Jr Pascual MD [address] [place] [address] 02/10/2019 16:00:47 02/10/2019 16:51:42 Female hirsutism 34480036 L68.0 Chronic anxiety 27227708 9 F41.9 Adult atte ntion deficit hyperactivity disorder 252383861 F90.9 Hypothyroidism 28274539 E03.9 [id number] Jr Pascual MD [address] [place] [address] 05/06/2019 11:44:44 05/06/2019 13:06:13 Edema 756535008 R60.9 Spasticity 351670120 R25 .2 Polycystic ovaries 81558 008 E28.2 Gastroesop hageal reflux disease 858023460 K21.9 Rosacea 296821778 L71.9 Hypothyroidism 08311965 E03.9 Chronic anxiety 17369422 9 F41.9 Dysmenorrhea 744226100 N 94.6 Hirsutism 216508820 L68. 0 Adult atte ntion deficit hyperactivity disorder 980148855 F90.9 Menorrhagia 854680775 N9 2.0 Onychomyco sis of toenails 529999405 B35.1 Obesity 421112519 E66.9 Depressive disorder 3548 9007 F32.1 Attention deficit hyperactivity disorder 043121388 F90.9 [id number] Jr Pascual MD [address] [place] [address] 09/13/2019 15:24:00 09/13/2019 16:50:09 Adult attention deficit hyperactivity disorder 142759045 F90.9 Cough 47784641 R05 Onychomyco sis of toenails 407904446 B35.1 Chronic diarrhea 7666628 09 K52.9 Hirsutism 183297509 L68. 0 Varicose v eins of lower extremity 82028664 I83.93 Edema 542211925 R60.9 Dysmenorrhea 483868225 N 94.6 Obesity 457291404 E66.9 Chronic anxiety 53477325 9 F41.9 [id number] Jr Pascual MD [address] [address] 12/13/2019 12:28:35 12/13/2019 13:31:19 Adult attention deficit hyperactivity disorder 429385622 F90.9 Attention deficit hyperactivity disorder 832979708 F90.9 Acute bronchitis 6296497 2 J20.9 Depressive disorder 3548 9007 F32.1 Cough 51045943 R05 Dysmenorrhea 709514252 N 94.6 Chronic anxiety 43397564 9 F41.9 [id number] Jr Pascual MD [address] [place] [address] 01/31/2020 12:51:19 01/31/2020 13:23:54 Acute bronchitis 73889807 J20.9 [id number] MD Shelia Quispe[address] [place] [address] 06/29/2020 15:09:26 06/29/2020 16:34:30 Chronic anxiety 369137871 F41.9 Adult atte ntion deficit hyperactivity disorder 674501451 F90.9 Depressive disorder 3548 9007 F32.1 Edema 524253934 R60.9 Dysmenorrhea 476304485 N 94.6 Hypothyroidism 83055651 E03.9 Polycystic ovaries 03852 008 E28.2 Rosacea 010534935 L71.9 Gastroesop hageal reflux disease 919022359 K21.9 Onychomyco sis of toenails 664940755 B35.1 Insomnia 867570112 G47.0 0 [id number] Jr Pascual MD [place] [address] [facility] [place] [address] 11/23/2020 11:57:56 11/23/2020 12:50:26 Body mass index 40+ - severely obese 234055206 Z68.41 Depressive disorder 3548 9007 F32.1 Hypothyroidism 47706528 E03.9 Chronic anxiety 07791855 9 F41.9 Dysmenorrhea 423776252 N 94.6 Polycystic ovaries 43048 008 E28.2 Spasticity 135275301 R25 .2 Gastroesop hageal reflux disease 794545880 K21.9 Insomnia 627120825 G47.0 0 Adult atte ntion deficit hyperactivity disorder 320594601 F90.9 [id number] Paola Wren MD [address] [place] [address] 02/19/2021 10:45:45 02/19/2021 13:34:09 Cough 10392836 R05 Rapid COVID and Rapid Influenza tests are negative. SXS are suggestive of bronchitis . Take Mucinex as prescribed . See us back or go to an Er right away should gets worse or develops any new symptoms or complaints . Follow up with us in a week Acute cystitis 62925921 N30.00 Acute cystitis. Take Macrobid as prescribed . Follow urine culture and labs. See us back or go to Er right away should gets worse or develops any new symptoms or complaints . Follow up with us in 2 to 3 days Body mass index 30+ - obesity 862507982 Z68.41 Take a low fat diet, exercise and loose weight. Get fasting lipid panel in our clinic as soon as possible. Venereal d isease screening 570777078 Z11.3 Long-term drug therapy 585146579 Z79.899 Attention deficit hyperactivity disorder 839290976 F90.9 Will refer to Psychiatry for management of ADHD and other mental health issues. See us back or go to Er right away should gets worse or develops any new symptoms or complaints . Otalgia 70959557 H92.03 Findings suggestive of OM on left side. Take Augmentin as prescribed . See us back or go to an Er right away should gets worse or develops any new symptoms or complaints or not better within next 2-3 days. Follow up with us in a week. Acute sinusitis 89383595 J01.90 Use Flonase and take antibiotic s Augmentin as prescribed . See us or go to the Er should get worse or develop new symptoms or not better within next 48-72 hours. Follow up with us in a week. Screening for malignant neoplasm of cervix 616395046 Z12.[address] for pelvic examinatio n and pap smear [id number] Angi Berry [employer] [place] [address] [place] [address] 08/13/2021 11:38:23 08/13/2021 12:31:08 Chronic anxiety 009692182 F41.9 Insomnia 916842907 G47.0 0 Gastroesop hageal reflux disease 868255141 K21.9 Anemia 721553181 D64.9 takes OTC iron supplement s Vitamin D deficiency 347 34464 E55.9 takes OTC Vit D supplement s Cough 58088463 R05 Hirsutism 244105563 L68. 0 Metabolic syndrome X 237 788375 E88.81 Obesity 268361204 E66.9 Restless l egs syndrome 54592526 G25.81 pt states she has tried requip but it didn't agree with her and didn't help and was put on the muscle relaxers and it has helped a lot Hypothyroidism 49893215 E03.9 Uses oral contraception 7514026 Z79.3 Depressive disorder 3548 9007 F32.9 [id number] Angi Berry [facility] [address] [place] [address] 09/12/2021 13:17:42 09/12/2021 13:54:08 Cervical lymphadenopathy 795064355 R59.0 Migraine 11562715 G43.90 9 Hypothyroidism 22423687 E03.9 [id number] aBiron England MD [facility] [address] [place], [place] [address] [address] 12/05/2021 09:53:25 12/05/2021 10:55:55 Upper respiratory infection 61445767 J06.9 Cough 69278233 R05.9 Chronic anxiety 28249156 9 F41.9 Hypothyroidism 41195203 E03.9 [id number] Angi Berry [address] [place] [address] 12/18/2021 10:23:01 12/18/2021 11:47:22 Bronchitis 33021889 J40 [id number] Angi Berry [address] [place] [address] 03/19/2022 08:50:07 03/19/2022 11:16:14 Chronic anxiety 395954180 F41.9 meds help but states she has been more lopez than usual Gastroesop hageal reflux disease 775401150 K21.9 meds and avoiding food triggers help Metabolic syndrome X 237 987184 E88.81 checking labs today Insomnia 668586104 G47.0 0 medication helps Restless l egs syndrome 58152776 G25.81 pt states she has tried requip but it didn't agree with her and didn't help and was put on the muscle relaxants and it has helped a lot Vitamin D deficiency 347 05734 E55.9 takes OTC Vit D supplement s Anemia 570742412 D64.9 takes OTC iron supplement s Depressive disorder 3548 9007 F32.9 states she feels more lopez and depressed would like medication changed i did increase the depakote Hyperlipidemia 35081789 E78.5 checking status today Hypothyroidism 18638806 E03.9 checking status Bronchitis 26331188 J40 needs a refill for chronic bronchitis no active problem today Migraine 25534812 G43.90 9 controlled with medication s and avoiding triggers Seasonal a llergic rhinitis 045241718 J30.2 Pain of le ft hip joint 4786704909 75768 M25.552 Rosacea 808128713 L71.9 pt states minocin and a cream she has used before does not help and would like to see a dermatolog ist [id number] Pearl Hernandez APRN [facility] [address] [facility] [place] [address] 04/10/2022 15:23:39 04/10/2022 15:56:13 Acute bronchitis 71230080 J20.9 [id number] Camila Kern APRN [place] [employer] [address] [place] [address] [place] [address] 05/22/2022 14:42:45 05/22/2022 16:26:08 Urine test positive 828877192 Z32.01 Maternal o besity complicating , childbirth and the puerperium, antepartum 9933479005 07 O99.211 Body mass index 40+ - severely obese 249000140 Z68.41 Advanced m aternal age 678554600 O09.521 Supervisio n of high risk with history of previous section done 7488536299 9106 O09.899 Past pregn bryn history of gestational diabetes mellitus 547156423 Z86.32 Hypothyroidism 88447451 E03.9 screening 2437 69815 Z36.9 History of 3 miscarriages 808769370 Z87.59 [id number] NATALI Carr [employer] [address] [place] [address] [place] [address] 06/25/2022 10:54:49 06/25/2022 12:44:27 Advanced maternal age 750529742 O09.522 Maternal o besity complicating , childbirth and the puerperium, antepartum 7453604449 07 O99.212 Body mass index 40+ - severely obese 229724271 Z68.41 Supervisio n of high risk with history of previous section done 2662502585 9106 O09.892 Past pregn bryn history of gestational diabetes mellitus 634199552 Z86.32 Hypothyroidism 33526023 E03.9 screening 2437 87499 Z36.9 History of 3 miscarriages 556102226 Z87.59 Gestation period, 15 weeks 2882795 Z3A.15 [id number] NATALI [place] [employer] [address] [place] [address] [place] [id number] 07/24/2022 09:43:47 07/24/2022 11:57:06 Gestation period, 19 weeks 95695859 Z3A.19 screening 243 29286 Z36.9 Hypothyroidism 22468913 E03.9 Advanced m aternal age 037182389 O09.522 Maternal o besity complicating , childbirth and the puerperium, antepartum 3090796749 07 O99.212 Body mass index 40+ - severely obese 790222659 Z68.41 Supervisio n of high risk with history of previous section done 9061323576 9106 O09.892 Past pregn bryn history of gestational diabetes mellitus 482749998 Z86.32 History of 3 miscarriages 885511768 Z87.59 [id number] Quita Lr MD [place] [employer] [address] [place] [address] [place] [id number] 08/28/2022 09:51:30 08/28/2022 12:07:30 Advanced maternal age 146141014 O09.522 Supervisio n of high risk with history of previous section done 4632968900 9106 O09.892 O34.211 Z98.890 Metabolic syndrome X 237 352014 E88.81 History of 3 miscarriages 769033640 Z87.59 Past pregn bryn history of gestational diabetes mellitus 850162967 Z86.32 Gestation period, 24 weeks 800972714 Z3A.24 Hypothyroidism 57247997 E03.9 Depressive disorder 3548 9007 F32.9 history of chronic anxiety /insomnia and depressive disorder. Currently using 3 meds Including p.r.n. benzodiaze pine and does not feel like she is at great control.. Advise referral to mental health both for counseling and psychiatry for medication adjustment screening 2437 21798 Z36.9 patient denies ever using alcohol and this was seen initial UDS, desires this to be recheck Restless l egs syndrome 39566293 G25.81 desires Requip, I will check and see regarding informatio n/ls [id number] Amanda Wilson CNM [place] [employer] [address] [facility] [place] [id number] 09/25/2022 12:53:39 09/25/2022 14:58:02 screening 799409714 Z36.9 Advanced m aternal age 796745541 O09.522 Hypothyroidism 73901811 E03.9 Maternal o besity complicating , childbirth and the puerperium, antepartum 8591202296 07 O99.212 Metabolic syndrome X 237 215172 E88.81 Supervisio n of high risk with history of previous section done 8581715972 9106 O09.892 O34.211 Z98.890 Influenza vaccine needed 5814467568 106 Z23 Past pregn bryn history of gestational diabetes mellitus 311680564 Z86.32 Gestationa l diabetes mellitus 17600713 O24.419 Restless l egs syndrome 63904185 G25.81 Screening for malignant neoplasm of cervix 981083010 Z12.4 Z11.3 Routine an tenatal care 123146082 Z34.83 High risk 4720 0007 O09.93 Chronic anxiety 17170030 9 F41.9 Depressive disorder 3548 9007 F32.9 [id number] Kellen Daley MD [place] [employer] [address] [place] [address] [place] [id number] 10/23/2022 10:20:46 10/23/2022 12:18:51 screening 361927541 Z36.9 Advanced m aternal age 526416486 O09.522 Hypothyroidism 41050206 E03.9 Maternal o besity complicating , childbirth and the puerperium, antepartum 8594100294 07 O99.212 Metabolic syndrome X 237 615650 E88.81 Supervisio n of high risk with history of previous section done 3154638984 9106 O09.892 O34.211 Z98.890 Past pregn bryn history of gestational diabetes mellitus 728295992 Z86.32 Gestationa l diabetes mellitus 45890273 O24.419 Routine an tenatal care 552398734 Z34.83 High risk 4720 0007 O09.93 Chronic anxiety 40121692 9 F41.9 Depressive disorder 3548 9007 F32.9 Gestation period, 32 weeks 2034409 Z3A.32 Upper resp iratory infection 28328287 J06.9 [id number] CYNTHIA TO DO [place] [employer] [address] [place] [address] [place] [id number] 10/28/2022 08:27:13 10/28/2022 11:19:03 screening 021613499 Z36.9 Supervisio n of high risk with history of previous section done 0982036876 9106 O09.892 O34.211 Z98.890 Gestationa l diabetes mellitus 76271120 O24.419 Advanced m aternal age 129665834 O09.522 Maternal o besity complicating , childbirth and the puerperium, antepartum 9563164728 07 O99.212 Gestation period, 33 weeks 35861438 Z3A.33 Polyhydramnios 91253822 O40.3XX0 Hypothyroi dism in 987911901 E03.9 [id number] Kellen Daley MD [place] [employer] [address] [place] [address] [place] [id number] 11/06/2022 08:47:48 11/06/2022 10:53:45 screening 405060732 Z36.9 Supervisio n of high risk with history of previous section done 4626657606 9106 O09.892 O34.211 Z98.890 Gestationa l diabetes mellitus 85787914 O24.419 Depressive disorder 3548 9007 F32.9 Advanced m aternal age 437103711 O09.522 Hypothyroidism 50840672 E03.9 Maternal o besity complicating , childbirth and the puerperium, antepartum 7313276626 07 O99.212 Metabolic syndrome X 237 308135 E88.81 Past pregn bryn history of gestational diabetes mellitus 209747503 Z86.32 High risk 4720 0007 O09.93 Chronic anxiety 83944673 9 F41.9 Candidiasis of vagina 72 241430 B37.31 Gestation period, 34 weeks 41303984 Z3A.34 [id number] MD Michelle Vásquez [employer] [address] [facility] [place] [id number] 11/28/2022 14:33:22 11/28/2022 16:33:44 Hypothyroidism 38806572 E03.9 screening 2437 22902 Z36.9 Supervisio n of high risk with history of previous section done 2787557434 9106 O09.892 O34.211 Z98.890 Depressive disorder 3548 9007 F32.9 Advanced m aternal age 866895687 O09.522 Maternal o besity complicating , childbirth and the puerperium, antepartum 1149198869 07 O99.212 Metabolic syndrome X 237 113407 E88.81 Past pregn bryn history of gestational diabetes mellitus 942585576 Z86.32 High risk 4720 0007 O09.93 Chronic anxiety 39862785 9 F41.9 Gestation period, 37 weeks 96990598 Z3A.37 Fatigue 64212552 R53.83 [id number] Angi Berry [facility] [address] [facility] [place] [address] 12/29/2022 14:28:34 12/29/2022 15:05:24 Chronic anxiety 403559146 F41.9 meds help she states Insomnia 601235674 G47.0 0 medication helps Gastroesop hageal reflux disease 607496733 K21.9 meds and avoiding food triggers help Hyperlipidemia 55443034 E78.5 Body mass index 40+ - severely obese 611574422 Z68.41 Morbid obesity 852573749 E66.01 Metabolic syndrome X 237 009780 E88.81 Hypothyroidism 57379882 E03.9 checking status Maternal o besity complicating , childbirth and the puerperium, antepartum 6095527672 07 O99.212 Depressive disorder 3548 9007 F32.9 states she feels more lopez and depressed would like medication changed i did increase the depakote Past pregn bryn history of gestational diabetes mellitus 317107059 Z86.32 Prediabetes 868260260 R7 3.03 Long-term drug therapy 562168655 Z79.899 CSA form on file 5..22PDM R reviewed and appropriat e state 5377010 1 Z39.2 baby by c section 1..23she states she is not breast feeding [id number] Angi Berry [address] [address] 01/26/2023 08:13:04 01/26/2023 09:02:31 Vitamin D deficiency 79088500 E55.9 takes OTC Vit D supplement s Migraine 45927870 G43.90 9 controlled with medication s and avoiding triggers Gastroesop hageal reflux disease 628199363 K21.9 meds and avoiding food triggers help Fatigue 20087721 R53.83 Hyperlipidemia 99685853 E78.5 Hypothyroidism 20482251 E03.9 checking status Metabolic syndrome X 237 661819 E88.81 Obesity 018080821 E66.9 Body mass index 40+ - severely obese 225178964 Z68.41 Morbid obesity 056861191 E66.01 Restless l egs syndrome 42940195 G25.81 pt states she has tried requip but it didn't agree with her and didn't help and was put on the muscle relaxants and it has helped a lot [id number] Angi Jamal [address] [address] 03/30/2023 10:18:39 03/30/2023 11:02:21 Bronchitis 42601646 J40 needs a refill for chronic bronchitis no active problem today [id number] Pearl Hernandez [address] [place] [address] 04/03/2023 13:39:45 04/03/2023 14:21:15 Insomnia 425168136 G47.00 Chronic anxiety 44478387 9 F41.9 Gastroesop hageal reflux disease 286811502 K21.9 Vitamin D deficiency 347 54017 E55.9 Depressive disorder 3548 9007 F32.9 Hypothyroidism 73504828 E03.9 Hyperlipidemia 67565563 E78.5 Body mass index 40+ - severely obese 245938083 Z68.41 Morbid obesity 394521734 E66.01 Iron defic iency anemia 29592399 D50.9 Long-term drug therapy 642059936 Z79.021 [id number] Pearlrossi Hernandez [facility] [address] [place], [place] [address] [place] [address] 07/27/2023 12:58:33 07/27/2023 14:11:56 Chronic anxiety 429863946 F41.9 Insomnia 113114414 G47.0 0 Gastroesop hageal reflux disease 037404474 K21.9 Vitamin D deficiency 347 88501 E55.9 Depressive disorder 3548 9007 F32.9 Restless l egs syndrome 95795990 G25.81 Hypothyroidism 20297312 E03.9 Hyperlipidemia 70549853 E78.5 Iron defic iency anemia 79611655 D50.9 Migraine 11288187 G43.90 9 Body mass index 40+ - severely obese 141117141 Z68.41 Morbid obesity 988722755 E66.01 Long-term drug therapy 426425268 Z79.899 Recurrent urinary tract infection 053266798 N39.0 Reviewed U/A results with patient Metabolic syndrome X 237 927582 E88.81 Bilateral carpal tunnel syndrome 8240026489 7154250 G56.03 [id number] Pearlrossi [address] [place] [address] 10/28/2023 14:48:28 10/28/2023 15:34:55 Chronic anxiety 683235168 F41.9 Gastroesop hageal reflux disease 954261451 K21.9 Vitamin D deficiency 347 91472 E55.9 Depressive disorder 3548 9007 F32.9 Hypothyroidism 78443346 E03.9 Hyperlipidemia 34324227 E78.5 Iron defic iency anemia 17557346 D50.9 Maternal o besity complicating , childbirth and the puerperium, antepartum 5153761968 07 O99.210 Migraine 67265445 G43.90 9 Insomnia 573343977 G47.0 0 Body mass index 40+ - severely obese 901996659 Z68.42 Morbid obesity 650538099 E66.01 Long-term current use of drug therapy 270660622 Z79.899 Epigastric pain 97502190 R10.13 [id number] Pearl Hernandez [facility] [address] [place], [place] [address] [address] 01/19/2024 09:30:34 01/19/2024 10:44:54 Chronic anxiety 190080084 F41.9 Hypothyroidism 21242900 E03.9 Obesity 499746750 E66.9 Body mass index 40+ - severely obese 750978016 Z68.41 Morbid obesity 789107969 E66.01 Vitamin D deficiency 347 58046 E55.9 Migraine 63174467 G43.90 9 Long-term drug therapy 968775532 Z79.899 Iron defic iency anemia 43601566 D50.9 [id number] Pearl Hernandez [address] [address] 08/15/2024 15:55:55 08/15/2024 16:30:00 Hypothyroidism 84268266 E03.9 Body mass index 30+ - obesity 413930122 Z68.37 Obesity 433944101 E66.9 Iron defic iency anemia 42917559 D50.9 Chronic anxiety 97211048 9 F41.9 Maternal o besity complicating , childbirth and the puerperium, antepartum 1298716001 07 O99.210 Hypertriglyceridemia 302 817884 E78.2 Gastroesop hageal reflux disease 777260098 K21.9 Insomnia 140287920 G47.0 0 Mixed hyperlipidemia 267 742233 E78.2 Vitamin D deficiency 347 71695 E55.9 Health Concerns Section Related Observation LastModified by Organization Detai ls LastModified Time None Recorded Concern Status LastModified by Organization Details LastModified Time None Recorded Advance Directives Directive N: Payers Insurance Date Sequence Insurance Name Policy Number Policy Arellano Covered Member ID Arellano Member ID Guarantor Name 01/19/2024 1 *SELF PAY* Jose Guzman 12/29/2022 [place] [facility] WRAP BILLING (MEDICAID) Cata Guzman [id number] Cata Guzman 04/10/2022 [place] [facility] [place] Cata Guzman [id number] Cata Guzman 10/18/2024 [place] [facility] [place] Cata Owens [id number] Cata Owens 10/18/2024 1 [place] [id number] Cata Owens [id number] Cata Owens 04/10/2022 [place] [facility] [place] Cata Owens [id number] Cata Owens 03/14/2024 1 [facility] [facility] (MEDICAID HMO) Cata Owens [id number] Cata Owens 06/29/2020 1 *SELF PAY* Ti mino Guzman 04/10/2022 1 [employer] [facility] (MEDICAID HMO) Cata Owens [id number] Cata Owens 01/12/2017 1 UNSPECIFIED REMIT PAYOR Cata Owens 02/26/2024 1 [place] [id number] Cata Owens [id number] Cata Owens 04/10/2022 [place] [facility] [place] Cata Owens [id number] Cata Owens Notes Date Note Type Note Provider Name and Address Organization Details Recorded Time 3 text/html ROS as noted in the HPI Presents for follow up regarding anxiety, depression, GERD, HLD, HypothyroidismNo chest pain, shortness of breath, dizziness, lightheadedness, syncope, palpitations or edema. Does endorse dry cough - was treated for bronchitis earlier this week with azithromycin. No ear pain or pressure, nasal drainage, sore throat. Has not smoked tobacco in over month. Denies alcohol or illicit drug usage. Compliant with medications. Pearl Hernandez, [employer] [address] [place], [address], [place] - [facility] 04/03/2023 14:38:08 3 text/html ROS as noted in the HPI Presents for follow up regarding anxiety, GERD, HLD, HypothyroidismRecently finished a series of cefdinir for UTI. Last dose was last night. Continues with burning upon urination, frequent urination. Does endorse pain to hands at night while sleeping. Has tried to braces without much improvement. Having issues with fatigue and craving ice chips. Also reports increased headaches. No chest pain, shortness of breath, dizziness, lightheadedness, syncope, palpitations or edema. No fever, chills or cough. Denies alcohol, tobacco and illicit drug usage. Does endorse issues with sleep - attributes to daughter. 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 Pearlrossi Hernandez, [employer]AL [address], [place], [address], [place] - [facility] 07/27/2023 17:48:42 3 text/html ROS as noted in the HPI Presents for follow up regarding anxiety, GERD, depression, HLD, insomnia, PCOSFeeling well. Concerned regarding weight gain. No chest pain, shortness of breath, dizziness, lightheadedness, syncope, palpitations or edema. No fever, chills or cough. Reports issues with constipation, diarrhea, abdominal bloating - concerned she may have celiac disease. Does report family hx. Pearl Hernandez, NATALI [address], [place], [address], [employer] - [facility] 11/03/2023 10:08:10 4 text/html ROS as noted in the HPI Presents for follow up regarding and morbid obesityFeeling well. Did have flu A last week.No chest pain, shortness of breath, dizziness, lightheadedness, syncope, palpitations or edema.No fever, chills or cough.Compliant with medicationsDenies tobacco, alcohol and illicit drug usage.Requesting order for Zepbound. Pearl Hernandez, NATALI [address], [place], [address], [place] - [facility] 01/19/2024 14:56:05 4 text/html ROS as noted in the HPI Presents for issues for increased fatigueFollowing with bariatric surgery - has gastric bypass in February4Does endorse some craving of iceBrought copy of recent labs from bariatric surgeon officeIron saturation 11%No chest pain, shortness of breath, dizziness, lightheadedness, syncope, palpitations or edema.No fever, chills or cough.Compliant with medications -except taking iron once a day.Denies tobacco, alcohol and illicit drug usage. Pearl Hernandez, TITLE I PARAPROFESSIONAL [address], [place], [address], [place] - [facility] 08/15/2024 20:25:57 OBGyn Episode Ob Episode Information Episode Created Date Number of Fetuses Patient Bloodtype Patient rh Status Prepregnancy Weight lbs Domestic Partner Domestic Partner Phone Father Name Columnist Status 05/22/20 22 1 CLOSED Fetus Data First Name Last Name Admitted to NICU Weight (g) Sex Living Outcome Pediatric Complications Fetus ID Race Codes Race Delivery Type , Spontane ous [id number] Kimani Calculation Initial Kimani Date Initial Exam Date Initial Exam Provider Initial Ultrasound Date Last Menstrual Period Date Ultra Sound Weeks Gestation 0 Eighteen To Twenty Week Kimani Update Ultra Sound Date Fundal Height At Umbil Quickening Date Ultra Sound Latest Weeks Gestation Final Kimani Confirmed By Final Kimani Confirmed Date Final Kimani Date Ultra Sound Latest Days Gestation 0 0 Menstrual History Last Menstrual Date Menses Monthly On Bcp Conception Prior Menses Frequency Hcg Plus Date Menarche Onset Age Delivery Information Delivery Date Delivery Type Labor Anesthesia Weeks Gestation Incision Type Labor Labor Length Hrs Delivered By Post Complications Tubal Sterilization Discharge Date Comments 3 5 sab at home, betafollo wed <3 Discharge Information Feeding Method Contraceptive Method Maternal HG B and HCT Levels Ob Episode Information Episode Created Date Number of Fetuses Patient Bloodtype Patient rh Status Prepregnancy Weight lbs Domestic Partner Domestic Partner Phone Father Name Columnist Status 05/22/20 22 1 CLOSED Fetus Data First Name Last Name Admitted to NICU Weight (g) Sex Living Outcome Pediatric Complications Fetus ID Race Codes Race Delivery Type 4139.02 7 M Full Term [id number] Vaginal Kimani Calculation Initial Kimani Date Initial Exam Date Initial Exam Provider Initial Ultrasound Date Last Menstrual Period Date Ultra Sound Weeks Gestation 0 Eighteen To Twenty Week Kimani Update Ultra Sound Date Fundal Height At Umbil Quickening Date Ultra Sound Latest Weeks Gestation Final Kimani Confirmed By Final Kimani Confirmed Date Final Kimani Date Ultra Sound Latest Days Gestation 0 0 Menstrual History Last Menstrual Date Menses Monthly On Bcp Conception Prior Menses Frequency Hcg Plus Date Menarche Onset Age Delivery Information Delivery Date Delivery Type Labor Anesthesia Weeks Gestation Incision Type Labor Labor Length Hrs Delivered By Post Complications Tubal Sterilization Discharge Date Comments 4 40 Inductio n for GDM,LGA,H Cecil escalera Discharge Information Feeding Method Contraceptive Method Maternal HG B and HCT Levels Ob Episode Information Episode Created Date Number of Fetuses Patient Bloodtype Patient rh Status Prepregnancy Weight lbs Domestic Partner Domestic Partner Phone Father Name Columnist Status 05/22/20 22 1 CLOSED Fetus Data First Name Last Name Admitted to NICU Weight (g) Sex Living Outcome Pediatric Complications Fetus ID Race Codes Race Delivery Type 4365.82 3 M Full Term [id number] Kimani Calculation Initial Kimani Date Initial Exam Date Initial Exam Provider Initial Ultrasound Date Last Menstrual Period Date Ultra Sound Weeks Gestation 0 Eighteen To Twenty Week Kimani Update Ultra Sound Date Fundal Height At Umbil Quickening Date Ultra Sound Latest Weeks Gestation Final Kimani Confirmed By Final Kimani Confirmed Date Final Kimani Date Ultra Sound Latest Days Gestation 0 0 Menstrual History Last Menstrual Date Menses Monthly On Bcp Conception Prior Menses Frequency Hcg Plus Date Menarche Onset Age Delivery Information Delivery Date Delivery Type Labor Anesthesia Weeks Gestation Incision Type Labor Labor Length Hrs Delivered By Post Complications Tubal Sterilization Discharge Date Comments 5 39 Elective c sectionpo ssible macrosomi aand GDM per LLS Delta Discharge Information Feeding Method Contraceptive Method Maternal HG B and HCT Levels Ob Episode Information Episode Created Date Number of Fetuses Patient Bloodtype Patient rh Status Prepregnancy Weight lbs Domestic Partner Domestic Partner Phone Father Name Columnist Status 05/22/20 22 1 CLOSED Fetus Data First Name Last Name Admitted to NICU Weight (g) Sex Living Outcome Pediatric Complications Fetus ID Race Codes Race Delivery Type , Spontane ous 51834 Kimani Calculation Initial Kimani Date Initial Exam Date Initial Exam Provider Initial Ultrasound Date Last Menstrual Period Date Ultra Sound Weeks Gestation 0 Eighteen To Twenty Week Kimani Update Ultra Sound Date Fundal Height At Umbil Quickening Date Ultra Sound Latest Weeks Gestation Final Kimani Confirmed By Final Kimani Confirmed Date Final Kimani Date Ultra Sound Latest Days Gestation 0 0 Menstrual History Last Menstrual Date Menses Monthly On Bcp Conception Prior Menses Frequency Hcg Plus Date Menarche Onset Age Delivery Information Delivery Date Delivery Type Labor Anesthesia Weeks Gestation Incision Type Labor Labor Length Hrs Delivered By Post Complications Tubal Sterilization Discharge Date Comments 1 Discharge Information Feeding Method Contraceptive Method Maternal HG B and HCT Levels Ob Episode Information Episode Created Date Number of Fetuses Patient Bloodtype Patient rh Status Prepregnancy Weight lbs Domestic Partner Domestic Partner Phone Father Name Columnist Status 05/22/20 22 1 CLOSED Fetus Data First Name Last Name Admitted to NICU Weight (g) Sex Living Outcome Pediatric Complications Fetus ID Race Codes Race Delivery Type , Spontane ous [id number] Kimani Calculation Initial Kimani Date Initial Exam Date Initial Exam Provider Initial Ultrasound Date Last Menstrual Period Date Ultra Sound Weeks Gestation 0 Eighteen To Twenty Week Kimani Update Ultra Sound Date Fundal Height At Umbil Quickening Date Ultra Sound Latest Weeks Gestation Final Kimani Confirmed By Final Kimani Confirmed Date Final Kimani Date Ultra Sound Latest Days Gestation 0 0 Menstrual History Last Menstrual Date Menses Monthly On Bcp Conception Prior Menses Frequency Hcg Plus Date Menarche Onset Age Delivery Information Delivery Date Delivery Type Labor Anesthesia Weeks Gestation Incision Type Labor Labor Length Hrs Delivered By Post Complications Tubal Sterilization Discharge Date Comments 3 5 sab, followed quants Discharge Information Feeding Method Contraceptive Method Maternal HG B and HCT Levels Ob Episode Information Episode Created Date Number of Fetuses Patient Bloodtype Patient rh Status Prepregnancy Weight lbs Domestic Partner Domestic Partner Phone Father Name Columnist Status 05/22/20 22 1 A Positive 232 Jose J Jing, 43 [employer] CLOSED Fetus Data First Name Last Name Admitted to NICU Weight (g) Sex Living Outcome Pediatric Complications Fetus ID Race Codes Race Delivery Type 4082.32 8 F true Full Term [id number] Problems Problem Notes overdue OB physical note d at 24 week visit/ advised and declined then/ last Pap 2013- please do as soon as she allows Repeat pap @ 6 wks PP. Pap normal but no endocervical cells. Eawid-VdqejvcujlpAtdnc-yxldeo LPNbreast/circ/repeat cs/pqfuplr9910/01/2004 for GDM/LGA , 9# 2oz St.E in Guwvdtnb73/25/2015 P elective LT c/s LGA/GDM 9# 10oz LLSHYPOTHYROID: 05/22/22 TSH 1.2, fT4 1.11, 88mcg ulkjnemoo67/13/2022: TSH 3.1, fT4 1.[address] [facility] appt 09/05/22, but no mcquhz93/8/22 TSH 4.050, FT4 0.81, levothyroxine up to 174hyt4/13/23: TSH 2.1, FT4 0.75; increase levothyroxine to 125mcgULTRASOUNDS: 05/22/2022 U/S: 10w5d, CRL 3.76, FHR 163, Rt ov complex cyst, YS seen, small sch07/24/2022 U/S: 19w5d, anatomy limited but normal, CL 3cm/AD[x]24wk growth 08/28/2022 preliminary: EFW50%, MVP 6 cm. bpP 8/8. UA D 2.8. [x]28wk growth- EFW @ 66%, AC 86%, AMAURI 25, BPP 8/8. Rt ovarian complex cyst 6X4X6 cm is stable from prior scan.10/23/22 US EFW 70%tile, AC 96%tile, AMAURI 23cm w/MVP 7cm, BPP 8/8, UAD 2.6101/07/[facility], BPP 8/8, UA 2.5 48%tile, f/u 1 week (weekly until 39)/KRA11/28/22: EFW 3647gm 81%tile, AC 98%tile, AMAURI 13cm/KRA Problem Name Start Date End Date Resolution Snomed Code Not e History of 3 miscarriages 05/25/2022 [id number] Past history of gestational diabetes mellitus 05/22/2022 [id number] Early 1hr gtt: 113 Body mass index 40+ - severely obese [id number] BMI: 40.3st arting wgt: 232recommended wgt gain: 11-20 Hypothyroidism 02/05/2018 [id number] SEE BELOW Advanced maternal age 05/22/2022 [id number] [x] Referral Supervision of high risk with history of previous section done 05/22/2022 [id number] desires repea t w/[place] 12/[facility]22 @ [facility] Maternal obesity complicating , childbirth and the puerperium, antepartum 05/22/2022 [id number] A1c: 5.3 Contraception care management [id number] Signed sterilization papers 10/24/22 screening [id number] [x][id number][-]AFP -declined[x]CF-neg in 2013 Active immunization [id number] [-]Covid-declines[x ]Tdap- 12/13[-]Flu-decline s Vitamin D deficiency 12/01/2022 [id number] 37 wk; started repletion Polyhydramnios 85842752 09/25 AMAURI 25 Depressive disorder 05/06/2019 [id number] Restless legs syndrome 08/13/2021 [id number] patient request ing Requip during I will review/llc 08/28 Kimani Calculation Initial Kimani Date Initial Exam Date Initial Exam Provider Initial Ultrasound Date Last Menstrual Period Date Ultra Sound Weeks Gestation 12/13/2022 05/22/2022 aduke205/22/2022 02/04/2022 10 Eighteen To Twenty Week Kimani Update Ultra Sound Date Fundal Height At Umbil Quickening Date Ultra Sound Latest Weeks Gestation Final Kimani Confirmed By Final Kimani Confirmed Date Final Kimani Date Ultra Sound Latest Days Gestation 0 aduke205/22/2022 12/13/19 23 0 Pre-guanakito Flowsheet Flowsheet Date 05/22/2022 Livingston Score Blood Edema Fundus Height Fundus Units Glucose Ketones Leukocytes Nitrite Labor Signs Protein Cervic Dilation Cervic Effacement Cervic Station neg none none negative none Negative none neg Type Weight in lbs Pre/Post Dialysis Refused Weight 242.128486516001 BP Diastolic BP Location Tested BP Systolic BP Type 72 124 Fetus Heart Rate Present Fetus Movement A No Comments Cata presents for ob hx t rubi. Unplanned . Not definite on LMP. Pt went to some [facility] last week and they told her approx. 10w GA. U/s is going to fit her in today to have a better understanding of GA. Pt stated she was on ocp but had taken abx and ended up . Desires genetic testing. Declines Covid. Pt has hx of GDM with LGA infant. Hx of elective c/s due to possible macro. Hx of miscarriage x3. Has PCOS. Discussed twice weekly NSTs @ 32wks. Pt stopped Citalopram with +upt. Discussed her to start tapering off Trazodone. Pt has PCOS and hypothyroid. U/s did not match LMP dates so changed KIMANI per guidelines. Discussed course of care.AD Flowsheet Date 06/25/2022 Livingston Score Blood Edema Fundus Height Fundus Units Glucose Ketones Leukocytes Nitrite Labor Signs Protein Cervic Dilation Cervic Effacement Cervic Station neg none none negative 2+ Negative none neg Type Weight in lbs Pre/Post Dialysis Refused With clothes 247.825982465380 BP Diastolic BP Location Tested BP Systolic BP Type 66 120 sitting Fetus Heart Rate Present A 144 Present Fetus Movement Comments Patient is here for routine OB visit. She denies any LOF, VB or pain. She states that she has been feeling flutters. KIKO/ Cata is here today for ob visit. [facility] referral sent today for level ll u/s, will get it scheduled. Mat21 today. Pt will return next week for early 1hr gtt and retail pos specialist appt. No q/c today. Denies any c/o or problems. Feeling some flutters. Normotensive. RTC next week.AD Flowsheet Date 07/24/2022 Livingston Score Blood Edema Fundus Height Fundus Units Glucose Ketones Leukocytes Nitrite Labor Signs Protein Cervic Dilation Cervic Effacement Cervic Station neg none none negative none Negative Cramping neg Type Weight in lbs Pre/Post Dialysis Refused With clothes 255.104444327484 BP Diastolic BP Location Tested BP Systolic BP Type 68 118 sitting Fetus Heart Rate Present A 132 Present Fetus Movement A Yes Comments u/s [facility], afm, no vb or lof, r eports cramping - MARY ALICE. Cata is here for u/s with for AMA, obesity, hypothyroidism. She has not seen an box sealing machine operator since hypothyroid dx, talked to her today about sending a referral so she can start care with one. Currently taking 88mcg Levothyroxine. Thyroid labs checked today. No c/o today. She didn't show to her last appt for early 1hr gtt and retail pos specialist appt, need to get that rescheduled. AFM. No q/c today. She has gained about 23 pounds so far this , discussed that she see the retail pos specialist soon and some healthier food choices. [facility] suggest f/u 4wk for growth and once a month until delivery.AD Flowsheet Date 08/28/2022 Livingston Score Blood Edema Fundus Height Fundus Units Glucose Ketones Leukocytes Nitrite Labor Signs Protein Cervic Dilation Cervic Effacement Cervic Station neg none 25 cm none negative none Negative none neg Type Weight in lbs Pre/Post Dialysis Refused With clothes 269.285512524610 BP Diastolic BP Location Tested BP Systolic BP Type 58 110 sitting Fetus Heart Rate Present A Present Fetus Movement A Yes Comments 1hr gtt, u/s [facility], afm, no vb or lof, reports rls - MARY ALICE// declined OBPE/PAP- apparently had not been brought up as needed before today's visit. Advise return in next 1- 2 weeks to have this done . notes as above. GTT/ TFTs /UDS sent today. Reviewed medication use. feels like her symptoms bad anxiety and poor sleep are not adequately treated with Current meds that she was on pre Admits to all substances seen in last UDS (states clonazepam maybe 1 dose per week, trazodone several doses per week. Paxil regular basis for anxiety and depression)- but adamant that she has never had alcohol in her system even pre and is upset that showed up there. Reviewed potential false positive, verses if any cross reaction with the other meds. Agrees to recheck today in a persistent positive we can speak to lab regarding this. agrees to mental health referral both for counseling and medication management. States desires scheduled repeat and tubal, will order this at 28 weeks. She has questions as to whether she can use Requip because she has really bad restless legs, has tried this previously and it has helped. I was unaware of risk and benefits and told her I would review this and we could discuss when she returned in a week for her physical. Noting at time of dictation she did make a 4 week follow-up visit but not a one-week physical. We will call her to get this scheduled/llc Flowsheet Date 09/25/2022 Livingston Score Blood Edema Fundus Height Fundus Units Glucose Ketones Leukocytes Nitrite Labor Signs Protein Cervic Dilation Cervic Effacement Cervic Station neg none 36 cm none negative none Negative none neg Type Weight in lbs Pre/Post Dialysis Refused Weight 270.68025470927 BP Diastolic BP Location Tested BP Systolic BP Type 70 126 sitting Fetus Heart Rate Present A Present Fetus Movement A Yes Comments No vb, lof or unusual d/c. F eels well, visit prior. at night she feels she is getting restless leg syndrome. Needs a glucometer. mdr//Baby active. OBPE, Pap, GC/CT. [facility] scan today. EFW @ 66%, AC 86%, AMAURI 25, BPP 06/23. Rt ovarian complex cyst 6X4X6 cm is stable from prior scan. Recommendation from Dr. Khoury is to check FBS and 2 hr PP over the next wk. She passed her 1 hr gtt but tells me that she is taking Metformin 500mg Q hs. IF FBS > 95 should be treated as GDM. She had indicated to that she would like to deliver in [place] but told me she Desires C/S with TL. l sent referral for C/S and TL. Sign TL papers today. She also indicated that she is having restless legs syndrome and can not sleep. She had been taking Trazadone most night. Enc to avoid Trazadone. Depakote was listed on her Med list. She reported that she is not been taking Depakote. I removed it from her med list. Vistaril 25 mg Rx but she was made aware that she could not take all those meds at the same time. She is to f/U here in 1 wk with her BS and with in 1 wk BPP and glucose review. RH Flowsheet Date 10/23/2022 Livingston Score Blood Edema Fundus Height Fundus Units Glucose Ketones Leukocytes Nitrite Labor Signs Protein Cervic Dilation Cervic Effacement Cervic Station none Type Weight in lbs Pre/Post Dialysis Refused With clothes 278.542539235477 BP Diastolic BP Location Tested BP Systolic BP Type 78 118 sitting Fetus Heart Rate Present A Present Fetus Movement A Yes Comments no LOF, no VB, no questions or concerns. REKHA///Cata saw today. AC accelerated as before. She is working with them to schedule C section at --she does not want to deliver at [facility] given her age. She has not yet signed sterilization papers, so signed today. Thyroid function labs collected. We did not review her glucose logs--will need to be reviewed at next visit. No urine dip today. She has throat pain and ear pain. Ears clear bilaterally and throat clear, but patient insistent she does not want to get sick. No sinus tenderness. Lungs are CTAB. Discussed suspect viral syndrome. SHe is still very concerned and worried about missing work and wants something to prevent getting sick. Given rx augmentin, but advised if not improving, likely viral. She is aware of risk of ATB resistance, etc. Strep and flu swabs negative. Given list for OTC medications that are safe in . Return on Thursday with NST and glucose log review. ANA Flowsheet Date 10/28/2022 Livingston Score Blood Edema Fundus Height Fundus Units Glucose Ketones Leukocytes Nitrite Labor Signs Protein Cervic Dilation Cervic Effacement Cervic Station neg none 33 cm none negative none Negative none neg Type Weight in lbs Pre/Post Dialysis Refused With clothes 280.277545746431 BP Diastolic BP Location Tested BP Systolic BP Type 72 112 sitting Fetus Heart Rate Present A 140 Fetus Movement A Yes Comments nst, afm, no vb or lof, pt d oing well, voiced no issues or concerns at this time - KCAgree with above. Increased Synthroid today to 100mcg qd. Patient did not bring glucose log today, i asked that she bring this next visit. rtc for [facility]. smb Flowsheet Date 11/06/2022 Livingston Score Blood Edema Fundus Height Fundus Units Glucose Ketones Leukocytes Nitrite Labor Signs Protein Cervic Dilation Cervic Effacement Cervic Station Cramping Type Weight in lbs Pre/Post Dialysis Refused With clothes 282.892377067140 BP Diastolic BP Location Tested BP Systolic BP Type 88 128 sitting Fetus Heart Rate Present Fetus Movement A Yes Comments complaints of leaking fluid, no VB. CB//No urine dip results provided. Cata thinks she has a yeast infection. On exam, copious yeast. Rx miconazole provided. Saw [facility] today and reassuring findings. AMAURI 16cm. Working on setting up delivery with . THey want to see her weekly until delivery. Advised NST on Thursday at hospital at 1130AM. SHe agrees. F/u in office or [place] Thursday if no telemed appt available. ANA Flowsheet Date 11/28/2022 Livingston Score Blood Edema Fundus Height Fundus Units Glucose Ketones Leukocytes Nitrite Labor Signs Protein Cervic Dilation Cervic Effacement Cervic Station neg none negative none Negative neg 0cm 0% -3 Type Weight in lbs Pre/Post Dialysis Refused With clothes 289.018528493404 BP Diastolic BP Location Tested BP Systolic BP Type 76 120 sitting Fetus Heart Rate Present A 148 Present Fetus Movement A Yes Comments Pt states no Vb, no LOF. occ asional CTX. AFM. /EV//Cvx cl/th/hi. No visit since 34 weeks. She says she has not been seeing physicians at --only getting US. Strongly advised 2x weekly NSTs and visits at the office here until delivered. GBS collected. SHe is scheduled for rCS with . US today shows EFW 81%tile with accelerated AC at 98%tile. She says she is very tired and wants labs collected today. Fatigue labs including TFTs collected per her request. Mt Dew at bedside. Return on Thursday with NST. KRA Menstrual History Last Menstrual Date Menses Monthly On Bcp Conception Prior Menses Frequency Hcg Plus Date Menarche Onset Age 0302/04/2022 true true 28 Genetic Screening And Infection History Question Response Note Patient's Age Will Be 35 Yea rs Or Older At Estimated Date of Delivery true Thalassemia (Indonesian, Maltese, Mediterranean, Or Background): MCV < 80 false Neural Tube Defect (Meningom yelocele, Spina Bifida, Or Anencephaly) false Congenital Heart Defect false Down Syndrome false Charly-Sachs (eg, Hindu, Cajun, Danish-Chilean) f alse Jefe Disease false Sickle Cell Disease Or Trait () false Hemophilia Or Other Blood Disorders false Muscular Dystrophy false Cystic Fibrosis false Oconto's Chorea false Mental Retardation/Autism false If Yes, Was Person Tested For Fragile X? false Other Inherited Genetic Or Chromosomal Disorder false Maternal Metabolic Disorder (eg, Type 1 Diabetes , PKU) false hx GDM Patient Or Baby's Father Had A Child With Defects Not Listed Above false Recurrent Loss, Or A Stillbirth true miscarriage x3 Medications (including Suppl ements, Vitamins, Herbs, OTC Drugs), Illicit/Recreational Drugs, Alcohol false If Yes, Agent(s) And Strength/Dosage false Any Other Genetic History false Live With Someone With TB Or Exposed To TB false Patient Or Partner Has History Of Genital Herpes false Rash Or Viral Illness Since Last Menstrual Perio d false History Of STD, Gonorrhea, Chlamydia, HPV, Syphi lis false Other Infection History false History of HIV false History of Hepatitis false Prior GBS-infected child false Recent Travel Outside of Country false Plans and Education First Trimester Discussed Date Discussion Item Discussion Note Discuss ed By 05/22/2022 Desire for unplanned 05/22/2022 Alcohol no 05/22/2022 Illicit/recreational drugs no a duke24 05/22/2022 Nutrition discussed ade205/22/2022 Weight gain counseling discussed aduke 05/22/2022 Intimate Partner Violence no ad e205/22/2022 Unstable Housing no e24 05/22/2022 Use of any medicatio ns (including supplements, vitamins, herbs, or OTC drugs) discussed ade205/22/2022 Avoidance of saunas or hot tubs discussed ad05/22/2022 Indications for ultrasonography discussed ad05/22/2022 Comminucation Barriers no aduke 24 05/22/2022 Anticipated course of care discu ssed ad05/22/2022 Toxoplasmosis precautions (cats/raw meat) discussed 05/22/2022 Sexual activity discussed 05/22/2022 Exercise discussed 05/22/2022 Tobacco/smoking cess ation counseling (ask, advise, assess, assist, and arrange) no 05/22/2022 Barriers to Care no 05/22/2022 Environmental/work hazards discussed a duke05/22/2022 Depression/Anxiety ( should be performed at least once during period) yes-on meds 05/22/2022 WIC/Hands Referral discussed 05/22/2022 Nutrition counseling ; special diet; dietary precautions (mercury, listeriosis) discussed 05/22/2022 Dental Care / Refer to Dentist discussed ad05/22/2022 Seat belt use discussed 05/22/2022 Childbirth classes/hospital facilities di scussed 05/22/2022 discussed ad05/22/2022 Screening for aneuploidy discussed gurpreet ke24 Second Trimester Discussed Date Discussion Item Discussion Note Discuss ed By Third Trimester Discussed Date Discussion Item Discussion Note Discuss ed By Delivery Information Delivery Date Delivery Type Labor Anesthesia Weeks Gestation Incision Type Labor Labor Length Hrs Delivered By Post Complications Tubal Sterilization Discharge Date Comments None [facility] 39.2 Low Transvers e false None true 12/11/2022 Repeat c/s at [facility] w/sterili zation. Discharge Information Feeding Method Contraceptive Method Maternal HG B and HCT Levels bilateral Salp Ob Episode Information Episode Created Date Number of Fetuses Patient Bloodtype Patient rh Status Prepregnancy Weight lbs Domestic Partner Domestic Partner Phone Father Name Columnist Status 05/06/20 19 4 DELETED Kimani Calculation Initial Kimani Date Initial Exam Date Initial Exam Provider Initial Ultrasound Date Last Menstrual Period Date Ultra Sound Weeks Gestation 0 Eighteen To Twenty Week Kimani Update Ultra Sound Date Fundal Height At [place] Quickening Date Ultra Sound Latest Weeks Gestation Final Kimani Confirmed By Final Kimani Confirmed Date Final Kimani Date Ultra Sound Latest Days Gestation 0 0 Menstrual History Last Menstrual Date Menses Monthly On Bcp Conception Prior Menses Frequency Hcg Plus Date Menarche Onset Age Delivery Information Delivery Date Delivery Type Labor Anesthesia Weeks Gestation Incision Type Labor Labor Length Hrs Delivered By Post Complications Tubal Sterilization Discharge Date Comments 9 Discharge Information Feeding Method Contraceptive Method Maternal HG B and HCT Levels
--- OUTSIDE RECORDS SUMMARY | 2025-09-03 19:21 | XMS_ITS | Data Portability ---
Author Organization [facility] & MIGUEL ANGEL Lacey ADMIN Address [address] [place] [id number] Care Team Providers Care Promotional Demonstrator Name Role Phone [facility] Primary Care Provider [phone] Assessment No assessment recorded. Plan of Treatment Reminders Order Date Submit Date Provider Last Modified By Organization Details Last Modified Time Details Appointments None record ed. Lab zinc, serum or plasma 2023 024 JUANJOSE Urbina, [address], [address], [place], [address], 4 14:37:28 folate , serum 2023 024 JUANJOSE Urbina, [address], [address], [place], [address], 4 14:37:21 thiami ne, QN, blood 2023 024 JUANJOSE Ciara, [address], [address], [place], [address], 4 14:37:25 methyl malona te, QN, serum or plasma 2023 024 JUANJOSE Urbina, [address], [address], [place], [address], 4 14:37:26 lipid panel, serum 2023 024 JUANJOSE Urbina, [address], [address], [place], [address], 4 14:37:18 copper , serum or plasma 2023 024 UJANJOSE [facility], [address], [address], [place], [address], 4 14:37:27 seleni um, quanti tative , blood 2023 024 JUANJOSE [facility], [address], [address], [place], [address], 4 14:37:30 CBC w/ auto diff 2023 024 JUANJOSE [facility], [address], [address], [place], [address], 4 14:37:15 CMP, serum or plasma 2023 024 JUANJOSE [facility], [address], [address], [place], [address], 4 14:37:17 HbA1c (hemog lobin A1c), blood 2023 024 JUANJOSE [facility], [address], [address], [place], [address], 4 14:37:20 iron + TIBC + ferrit in, serum 2023 024 JUANJOSE [facility], [address], [address], [place], [address], 4 14:37:13 vitami n D, 25-hyd elodia, total, serum 2023 024 JUANJOSE [facility], [address], [address], [place], [address], 4 14:37:24 vitami n E, serum 2023 024 JUANJOSE [facility], [address], [address], [place], [address], 4 14:37:19 vitami n A (retin ol), serum 2023 024 JUANJOSE [facility], [address], [address], [place], [address], 4 14:37:23 TSH + free T4, serum 2023 024 JUANJOSE [facility], [address], [address], [place], [address], 4 14:37:14 prealb umin, serum 2023 024 JUANJOSE [facility], [address], [address], [place], [address], 4 14:37:29 copper , serum or plasma 2023 024 [email or web address] [facility], [address], [address], [place], [address], 4 09:55:09 seleni um, quanti tative , blood 2023 024 [facility], [address], [address], [place], [address], 4 09:55:09 zinc, serum or plasma 2023 024 [email or web address] [facility], [address], [address], [place], [address], 4 09:55:09 CBC w/ auto diff 2023 024 JUANJOSE [facility], [address], [address], [place], [address], 4 15:58:26 CMP, serum or plasma 2023 024 JUANJOSE [facility], [address], [address], [place], [address], 4 17:15:07 HbA1c (hemog lobin A1c), blood 2023 024 [email or web address] [facility], [address], [address], [place], [address], 4 09:55:10 iron + TIBC + ferrit in, serum 2023 [email or web address] [facility], [address], [address], [place], [address], 4 09:55:10 folate , serum 2023 024 JUANJOSE [facility], [address], [address], [place], [address], 4 17:15:05 vitami n D, 25-hyd elodia, total, serum 2023 024 [email or web address] [facility], [address], [address], [place], [address], 4 09:55:10 vitami n E, serum 2023 024 [email or web address] [facility], [address], [address], [place], [address], 4 09:55:10 vitami n A (retin ol), serum 2023 024 JUANJOSE [facility], [address], [address], [place], [address], 4 15:12:28 TSH + free T4, serum 2023 024 [email or web address] [facility], [address], [address], [place], [address], 4 09:55:10 prealb umin, serum 2023 024 JUANJOSE [facility], [address], [address], [place], [address], 4 13:13:07 lipid panel, serum 2023 024 [facility], [address], [address], [place], [address], 4 09:55:10 copper , serum or plasma 2023 024 JUANJOSE [facility], [address], [address], [place], [address], 4 16:13:54 seleni um, quanti tative , blood 2023 024 JUANJOSE [facility], [address], [address], [place], [address], 4 16:13:56 prealb umin, serum 2023 024 JUANJOSE [facility], [address], [address], [place], [address], 4 16:13:55 zinc, serum or plasma 2023 024 JUANJOSE [facility], [address], [address], [place], [address], 4 16:13:55 iron + TIBC + ferrit in, serum 2023 024 JUANJOSE [facility], [address], [address], [place], [address], 4 16:13:47 folate , serum 2023 024 J[facility]ANJOSE [facility], [address], [address], [place], [address], 4 16:13:51 vitami n E, serum 2023 024 JUANJOSE [facility], [address], [address], [place], [address], 4 16:13:50 vitami n A (retin ol), serum 2023 024 [facility], [address], [address], [place], [address], 4 16:13:52 thiami ne, QN, blood 2023 024 [facility], [address], [address], [place], [address], 4 16:13:53 methyl malona te, QN, serum or plasma 2023 024 [facility], [address], [address], [place], [address], 4 16:13:54 lipid panel, serum 2023 024 [facility], [address], [address], [place], [address], 4 16:13:49 vitami n D, 25-hyd elodia, total, serum 2023 024 [facility], [address], [address], [place], [address], 4 16:13:53 CBC w/ auto diff 2023 024 JUANJOSE [facility], [address], [address], [place], [address], 4 16:13:48 CMP, serum or plasma 2023 024 JUANJOSE [facility], [address], [address], [place], [address], 4 16:13:49 HbA1c (hemog lobin A1c), blood 2023 024 JUANJOSE [facility], [address], [address], [place], [address], 4 16:13:51 TSH + free T4, serum 2023 024 JUANJOSE [facility], [address], [address], [place], [address], 4 16:13:47 Referral None record ed. Procedures IV infusi on, hydrat ion, 31-60 min (PROC) 2023 024 JUANJOSE Not available 5 05:01:49 Surgeries esopha gogast roduod enosco py (SURG) 2023 024 [email or web address] Mable Lamb MD, [address], [address], [place], [address], 4 12:59:40 Imaging XR, kidney + ureter + bladde r 2023 024 [email or web address] [facility] (Registration ), [address], [place], [address], 5 19:19:40 RF, upper gastro intest inal tract + small bowel, w/ contra st PO 2023 024 [email or web address] [facility] (Centralized Scheduling), [address], [place], [address], 4 13:48:34 Medication Orders ondans etron 4 mg disint egrati ng tablet 2023 024 [email or web address] [facility], [address], [facility], [address], 4 09:41:59 cyanoc obalam in (vit B-12) 1,000 mcg/mL inject ion soluti on 2023 024 [email or web address] Not available 4 16:18:21 thiami ne HCl (vitam in B1) 100 mg/mL inject ion soluti on 2023 024 [email or web address] Not available 4 16:17:49 cyanoc obalam in (vit B-12) 1,000 mcg/mL inject ion soluti on 2023 024 Not available 4 13:30:01 thiami ne HCl (vitam in B1) 100 mg/mL inject ion soluti on 2023 024 [email or web address] Not available 4 13:30:44 ondans etron 4 mg disint egrati ng tablet 2023 024 POLAND [facility] [address] [facility], [address], 4 10:03:55 ondans etron 4 mg disint egrati ng tablet 2023 024 [facility], [address] [facility], [address], 4 09:47:32 Patient TargetsNo targets recorded. Patient InstructionsNo instructions recorded. Reason for Referral None Reported. Results Created Date Observation Date Name Description Value Unit Range Abnormal Flag Note LastModifiedBy Organization Detail LastModifiedTime 04/22/20 24 04/23/2024 FE+TI BC+FE R iron bind.cap.(TI BC) 389 ug/dL 250-45 0 Not Available [facility] ([facility]) [address] [place], [address], 04/29/2024 16:13:47 04/22/20 24 04/23/2024 FE+TI BC+FE R UIBC 298 ug/dL 131-42 5 Not Available [facility] ([facility]) [address] [place], [address], 04/29/2024 16:13:47 04/22/20 24 04/23/2024 FE+TI BC+FE R iron 91 ug/dL 27-159 Not Available [facility] ([facility]) [address] [place], [address], 04/29/2024 16:13:47 04/22/20 24 04/23/2024 FE+TI BC+FE R iron saturation 23 % 15-55 Not Available [facility] ([facility]) [address] [place], [address], 04/29/2024 16:13:47 04/22/20 24 04/23/2024 FE+TI BC+FE R ferritin 20 NG/mL 15-150 Not Available [facility] ([facility]) [address] [place], [address], 04/29/2024 16:13:47 04/22/20 24 04/23/2024 TSH+F REE T4 TSH 3.410 uIU/m L 0.450- 4.500 Not Available [facility] ([facility]) [address] [place], [address], 04/29/2024 16:13:47 04/22/20 24 04/23/2024 TSH+F REE T4 T4,free(dire ct) 1.02 NG/dL 0.82-1 .77 Not Available [facility] ([facility]) [address] [place], [address], 04/29/2024 16:13:47 04/22/20 24 04/23/2024 CBC WITH DIFFE RENTI AL/PL ATELE T WBC 4.1 x10e3 /uL 3.4-10 .8 Not Available [facility] ([facility]) [address] [facility], [place], [address], 04/29/2024 16:13:48 04/22/20 24 04/23/2024 CBC WITH DIFFE RENTI AL/PL ATELE T RBC 4.41 x10e6 /uL 3.77-5 .28 Not Available [facility] ([facility]) [address] [facility], [place], [address], 04/29/2024 16:13:48 04/22/20 24 04/23/2024 CBC WITH DIFFE RENTI AL/PL ATELE T hemoglobin 13.5 g/dL 11.1-1 5.9 Not Available [facility] ([facility]) [address] [facility], [place], [address], 04/29/2024 16:13:48 04/22/20 24 04/23/2024 CBC WITH DIFFE RENTI AL/PL ATELE T hematocrit 39.5 % 34.0-4 6.6 Not Available [facility] ([facility]) [address] [place], [address], 04/29/2024 16:13:48 04/22/20 24 04/23/2024 CBC WITH DIFFE RENTI AL/PL ATELE T MCV 90 fL 79-97 Not Available [facility] ([facility]) [address] [place], [address], 04/29/2024 16:13:48 04/22/20 24 04/23/2024 CBC WITH DIFFE RENTI AL/PL ATELE T MCH 30.6 pg 26.6-3 3.0 Not Available [facility] ([facility]) [address] [place], [address], 04/29/2024 16:13:48 04/22/20 24 04/23/2024 CBC WITH DIFFE RENTI AL/PL ATELE T MCHC 34.2 g/dL 31.5-3 5.7 Not Available [facility] ([facility]) [address] [facility], [place], [address], 04/29/2024 16:13:48 04/22/20 24 04/23/2024 CBC WITH DIFFE RENTI AL/PL ATELE T RDW 12.6 % 11.7-1 5.4 Not Available [facility] ([facility]) [address] [facility], [place], [address], 04/29/2024 16:13:48 04/22/20 24 04/23/2024 CBC WITH DIFFE RENTI AL/PL ATELE T platelets 201 x10e3 /uL 150-45 0 Not Available [facility] ([facility]) [address] [facility], [place], [address], 04/29/2024 16:13:48 04/22/20 24 04/23/2024 CBC WITH DIFFE RENTI AL/PL ATELE T neutrophils 44 % not estab. Not Available [facility] ([facility]) [address] [facility], [place], [address], 04/29/2024 16:13:48 04/22/20 24 04/23/2024 CBC WITH DIFFE RENTI AL/PL ATELE T lymphs 38 % not estab. Not Available [facility] ([facility]) [address] [facility], [place], [address], 04/29/2024 16:13:48 04/22/20 24 04/23/2024 CBC WITH DIFFE RENTI AL/PL ATELE T monocytes 13 % not estab. Not Available [facility] ([facility]) [address] [facility], [place], [address], 04/29/2024 16:13:48 04/22/20 24 04/23/2024 CBC WITH DIFFE RENTI AL/PL ATELE T eos 4 % not estab. Not Available [facility] ([facility]) [address] [facility], [place], [address], 04/29/2024 16:13:48 04/22/20 24 04/23/2024 CBC WITH DIFFE RENTI AL/PL ATELE T basos 1 % not estab. Not Available [facility] ([facility]) [address] [facility], [place], [address], 04/29/2024 16:13:48 04/22/20 24 04/23/2024 CBC WITH DIFFE RENTI AL/PL ATELE T immature cells SECURITIES TRADER Not Available [facility] ([facility]) [address] [facility], [place], [address], 04/29/2024 16:13:48 04/22/20 24 04/23/2024 CBC WITH DIFFE RENTI AL/PL ATELE T neutrophils (absolute) 1.9 x10e3 /uL 1.4-7. 0 Not Available [facility] ([facility]) [address] [facility], [place], [address], 04/29/2024 16:13:48 04/22/20 24 04/23/2024 CBC WITH DIFFE RENTI AL/PL ATELE T lymphs (absolute) 1.5 x10e3 /uL 0.7-3. 1 Not Available [facility] ([facility]) [address] [place], [address], 04/29/2024 16:13:48 04/22/20 24 04/23/2024 CBC WITH DIFFE RENTI AL/PL ATELE T monocytes(ab solute) 0.5 x10e3 /uL 0.1-0. 9 Not Available [facility] ([facility]) [address] [place], [address], 04/29/2024 16:13:48 04/22/20 24 04/23/2024 CBC WITH DIFFE RENTI AL/PL ATELE T eos (absolute) 0.2 x10e3 /uL 0.0-0. 4 Not Available [facility] ([facility]) [address] [facility], [place], [address], 04/29/2024 16:13:48 04/22/20 24 04/23/2024 CBC WITH DIFFE RENTI AL/PL ATELE T baso (absolute) 0.0 x10e3 /uL 0.0-0. 2 Not Available [facility] ([facility]) [address] [facility], [place], [address], 04/29/2024 16:13:48 04/22/20 24 04/23/2024 CBC WITH DIFFE RENTI AL/PL ATELE T immature granulocytes 0 % not estab. Not Available [facility] ([facility]) [address] [facility], [place], [address], 04/29/2024 16:13:48 04/22/20 24 04/23/2024 CBC WITH DIFFE RENTI AL/PL ATELE T immature grans (abs) 0.0 x10e3 /uL 0.0-0. 1 Not Available [facility] ([facility]) [address] [facility], [place], [address], 04/29/2024 16:13:48 04/22/20 24 04/23/2024 CBC WITH DIFFE RENTI AL/PL ATELE T NRBC SECURITIES TRADER Not Available [facility] ([facility]) [address] [facility], [place], [address], 04/29/2024 16:13:48 04/22/20 24 04/23/2024 CBC WITH DIFFE RENTI AL/PL ATELE T hematology comments: SECURITIES TRADER Not Available [facility] ([facility]) [address] [place], [address], 04/29/2024 16:13:48 04/22/20 24 04/23/2024 COMP. METAB OLIC PANEL (14) glucose 67 mg/dL 70-99 below low normal Not Available [facility] ([facility]) [address] [place], [address], 04/29/2024 16:13:49 04/22/20 24 04/23/2024 COMP. METAB OLIC PANEL (14) BUN 9 mg/dL 6-24 Not Available [facility] ([facility]) [address] [place], [address], 04/29/2024 16:13:49 04/22/20 24 04/23/2024 COMP. METAB OLIC PANEL (14) creatinine 0.65 mg/dL 0.57-1 .00 Not Available [facility] ([facility]) [address] [place], [address], 04/29/2024 16:13:49 04/22/20 24 04/23/2024 COMP. METAB OLIC PANEL (14) eGFR 113 mL/mi n/1.7 3 >59 Not Available [facility] ([facility]) [address] [place], [address], 04/29/2024 16:13:49 04/22/20 24 04/23/2024 COMP. METAB OLIC PANEL (14) BUN/creatini ne ratio 14 9-23 Not Available [facility] ([facility]) [address] [place], [address], 04/29/2024 16:13:49 04/22/20 24 04/23/2024 COMP. METAB OLIC PANEL (14) sodium 138 mmol/ L 134-14 4 Not Available [facility] ([facility]) [address] [place], [address], 04/29/2024 16:13:49 04/22/20 24 04/23/2024 COMP. METAB OLIC PANEL (14) potassium 4.1 mmol/ L 3.5-5. 2 Not Available [facility] ([facility]) [address] [place], [address], 04/29/2024 16:13:49 04/22/20 24 04/23/2024 COMP. METAB OLIC PANEL (14) chloride 103 mmol/ L 96-106 Not Available [facility] ([facility]) [address] [place], [address], 04/29/2024 16:13:49 04/22/20 24 04/23/2024 COMP. METAB OLIC PANEL (14) carbon dioxide, total 23 mmol/ L 20-29 Not Available [facility] ([facility]) [address] [place], [address], 04/29/2024 16:13:49 04/22/20 24 04/23/2024 COMP. METAB OLIC PANEL (14) calcium 9.0 mg/dL 8.7-10 .2 Not Available [facility] ([facility]) [address] [place], [address], 04/29/2024 16:13:49 04/22/20 24 04/23/2024 COMP. METAB OLIC PANEL (14) protein, total 6.1 g/dL 6.0-8. 5 Not Available [facility] ([facility] [address] [facility] [place], [address], 04/29/2024 16:13:49 04/22/20 24 04/23/2024 COMP. METAB OLIC PANEL (14) albumin 4.1 g/dL 3.9-4. 9 Not Available [facility] ([facility]) [address] [place], [address], 04/29/2024 16:13:49 04/22/20 24 04/23/2024 COMP. METAB OLIC PANEL (14) globulin, total 2.0 g/dL 1.5-4. 5 Not Available [facility] ([facility]) [address] [facility], [place], [address], 04/29/2024 16:13:49 04/22/20 24 04/23/2024 COMP. METAB OLIC PANEL (14) A/G ratio 2.1 1.2-2. 2 Not Available [facility] ([facility]) [address] [facility] [place], [address], 04/29/2024 16:13:49 04/22/20 24 04/23/2024 COMP. METAB OLIC PANEL (14) bilirubin, total 0.5 mg/dL 0.0-1. 2 Not Available [facility] ([facility]) [address] [facility] [place], [address], 04/29/2024 16:13:49 04/22/20 24 04/23/2024 COMP. METAB OLIC PANEL (14) alkaline phosphatase 60 IU/L 44-121 Not Available [facility] ([facility]) [address] [place], [address], 04/29/2024 16:13:49 04/22/20 24 04/23/2024 COMP. METAB OLIC PANEL (14) AST (SGOT) 20 IU/L 0-40 Not Available [facility] ([facility]) [address] [facility] [place], [address], 04/29/2024 16:13:49 04/22/20 24 04/23/2024 COMP. METAB OLIC PANEL (14) ALT (SGPT) 18 IU/L 0-32 Not Available [facility] ([facility]) [address] [place], [address], 04/29/2024 16:13:49 04/22/20 24 04/23/2024 LIPID PANEL cholesterol, total 150 mg/dL 100-19 9 Not Available [facility] ([facility]) [address] [place], [address], 04/29/2024 16:13:49 04/22/20 24 04/23/2024 LIPID PANEL triglyceride s 142 mg/dL 0-149 Not Available [facility] ([facility]) [address] [place], [address], 04/29/2024 16:13:49 04/22/20 24 04/23/2024 LIPID PANEL HDL cholesterol 30 mg/dL >39 below low normal Not Available [facility] ([facility]) [address] [place], [address], 04/29/2024 16:13:49 04/22/20 24 04/23/2024 LIPID PANEL VLDL cholesterol arsh 25 mg/dL 5-40 Not Available [facility] ([facility]) [address] [place], [address], 04/29/2024 16:13:49 04/22/20 24 04/23/2024 LIPID PANEL LDL chol calc ([facility]) 95 mg/dL 0-99 Not Available [facility] ([facility]) [address] [place], [address], 04/29/2024 16:13:49 04/22/20 24 04/23/2024 LIPID PANEL comment: SECURITIES TRADER Not Available [facility] ([facility]) [address] [place], [address], 04/29/2024 16:13:49 04/22/20 24 04/25/2024 VITAM IN E vitamin E(alpha tocopherol) 10.8 mg/L 7.0-25 .1 Not Available [facility] ([facility]) [address] [place], [address], 04/29/2024 16:13:50 04/22/20 24 04/25/2024 VITAM IN E vitamin E(gamma tocopherol) 0.7 mg/L 0.5-5. 5 Refer ence inter vals for alpha and gamma -toco phero l deter mined from [facility]ami natio n Surve y, 2004- 2005. Indiv idual s with alpha -toco phero l level s less than 5.0 mg/L are consi dered vitam in E defic ient. Not Available [facility] ([facility]) [address] [facility], [place], [address], 04/29/2024 16:13:50 04/22/20 24 04/23/2024 HEMOG LOBIN A1C hemoglobin A1C 5.4 % 4.8-5. 6 Predi abete s: 5.7 - 6.4 Diabe barb: >6.4 Glyce walker contr ol for adult s with diabe barb: <7.0 Not Available [facility] ([facility]) [address] [facility], [place], [address], 04/29/2024 16:13:51 04/22/20 24 04/23/2024 FOLAT E (FOLI C ACID) , SERUM folate (folic acid), serum 8.0 NG/mL >3.0 A serum folat e lili ntrat ion of less than 3.1 ng/mL is consi dered to repre sent clini asrh defic iency . Not Available [facility] ([facility]) [address] [facility], [place], [address], 04/29/2024 16:13:51 04/22/20 24 04/25/2024 VITAM IN A, SERUM vitamin A 30.0 ug/dL 20.1-6 2.0 Refer ence inter vals for vitam in A deter mined from [facility] inter nal studi es. Indiv idual s with vitam in A less than 20 ug/dL are consi dered vitam in A defic ient and those with serum lili ntrat ions less than 10 ug/dL are consi dered sever bobby defic ient. This test was [facility] and its perfo rmanc e johnathan cteri stics deter mined by [facility]. It has not been clear ed or appro fer by the Food and Drug Admin istra tion. Not Available [facility] ([facility]) [address] [facility], [place], [address], 04/29/2024 16:13:52 04/22/20 24 04/23/2024 VITAM IN D, 25-HY DROXY vitamin D, 25-hydroxy 41.9 NG/mL 30.0-1 00.0 Vitam in D defic iency has been [...] IOM (Inst itute of Medic ine). 2010. Dieta ry refer ence intak es for calci um and D. Karissa starr [place]: [facility] Press . 2. Milagro taylor [place], Elier schilling [place], Lorene off-F errar i [place], et al. Evalu ation , treat ment, and preve ntion of vitam in D defic iency : an Endoc rine Socie ty clini arsh pract ice guide line. JCEM. 2010; 96(7) :1911 -30. Not Available [facility] ([facility]) [address] [facility], [place], [address], 04/29/2024 16:13:52 04/22/20 24 04/27/2024 VITAM IN B1 (THIA MINE) , BLOOD vit. B1, whole blood 104.0 nmol/ L 66.5-2 00.0 Not Available [facility] ([facility]) [address] [facility], [place], [address], 04/29/2024 16:13:53 04/22/20 24 04/29/2024 METHY LMALO VIVIANA ACID, SERUM methylmaloni c acid, serum 193 nmol/ L 0-378 Not Available [facility] ([facility]) [address] [facility], [place], [address], 04/29/2024 16:13:54 04/22/20 24 04/26/2024 COPPE R, SERUM OR PLASM A copper, serum or plasma 95 ug/dL 80-158 Detec tion Limit = 5 Not Available [facility] ([facility]) [address] [facility], [place], [address], 04/29/2024 16:13:54 04/22/20 24 04/26/2024 ZINC, PLASM A OR SERUM zinc, plasma or serum 59 ug/dL 44-115 Detec tion Limit = 5 Not Available [facility] ([facility]) [address] [facility], [place], [address], 04/29/2024 16:13:55 04/22/20 24 04/23/2024 PREAL BUMIN prealbumin 16 mg/dL 12-34 Not Available [facility] ([facility]) [address] [facility], [place], [address], 04/29/2024 16:13:55 04/22/20 24 04/29/2024 SELEN IUM, BLOOD selenium, blood 193 ug/L 100-34 0 Detec tion Limit = 10 Not Available [facility] ([facility]) [address] [facility], [place], [address], 04/29/2024 16:13:56 08/10/20 24 08/10/2024 CBC AUTO W DIFF WBC 6.1 K/uL 4.0-10 .5 Not Available [facility] ([facility]) [address] , [place], [address], 08/10/2024 15:58:26 08/10/20 24 08/10/2024 CBC AUTO W DIFF RBC 4.7 M/mm3 4.2-6. 4 Not Available [facility] ([facility]) [address] [address], [place], [address], 08/10/2024 15:58:26 08/10/20 24 08/10/2024 CBC AUTO W DIFF HGB 13.7 gm/dL 12.5-1 6.0 Not Available [facility] ([facility] [address], [place], [address], 08/10/2024 15:58:26 08/10/20 24 08/10/2024 CBC AUTO W DIFF HCT 42.3 % 37.0-4 7.0 Not Available [facility] ([facility]) [address] , [place], [address], 08/10/2024 15:58:26 08/10/20 24 08/10/2024 CBC AUTO W DIFF MCV 90.0 fL 78-100 Not Available [facility] ([facility]) [address] , [place], [address], 08/10/2024 15:58:26 08/10/20 24 08/10/2024 CBC AUTO W DIFF MCH 29.1 pg 27-31 Not Available [facility] ([facility]) [address] , [place], [address], 08/10/2024 15:58:26 08/10/20 24 08/10/2024 CBC AUTO W DIFF MCHC 32.4 g/dL 32-36 Not Available [facility] ([facility]) [address] , [place], [address], 08/10/2024 15:58:26 08/10/20 24 08/10/2024 CBC AUTO W DIFF RDW 13.3 % 11.5-1 4.0 Not Available [facility] ([facility]) [address] [place], [address], 08/10/2024 15:58:26 08/10/20 24 08/10/2024 CBC AUTO W DIFF platelet count 263 K/uL 150-45 0 Not Available [facility] ([facility]) [address] , [place], [address], 08/10/2024 15:58:26 08/10/20 24 08/10/2024 CBC AUTO W DIFF MPV 9.3 fL 6-9.5 Not Available [facility] ([facility]) [address] [place], [address], 08/10/2024 15:58:26 08/10/20 24 08/10/2024 CBC AUTO W DIFF neutrophil% 65.8 % 43-65 high Not Available [facility] ([facility]) [address] [place], [address], 08/10/2024 15:58:26 08/10/20 24 08/10/2024 CBC AUTO W DIFF lymphocyte% 24.9 % 20.5-4 5.5 Not Available [facility] ([facility]) [address] [place], [address], 08/10/2024 15:58:26 08/10/20 24 08/10/2024 CBC AUTO W DIFF monocyte% 7.0 % 5.5-11 .7 Not Available [facility] ([facility]) [address] [place], [address], 08/10/2024 15:58:26 08/10/20 24 08/10/2024 CBC AUTO W DIFF eosinophil% 1.8 % 0.9-2. 9 Not Available [facility] ([facility]) [address] [place], [address], 08/10/2024 15:58:26 08/10/20 24 08/10/2024 CBC AUTO W DIFF basophil% 0.3 % 0.2-1. 0 Not Available [facility] ([facility]) [address] [place], [address], 08/10/2024 15:58:26 08/10/20 24 08/10/2024 CBC AUTO W DIFF immature granulocytes % 0.2 % 0.0-0. 8 Not Available [facility] ([facility]) [address] [facility] [place], [address], 08/10/2024 15:58:26 08/10/20 24 08/10/2024 CBC AUTO W DIFF nucleated red blood cells % 0.0 % Not Available [facility] ([facility]) [address] [facility], [place], [address], 08/10/2024 15:58:26 08/10/20 24 08/10/2024 CBC AUTO W DIFF neutrophil# 4.0 K/uL 2.2-4. 8 Not Available [facility] ([facility]) [address] [facility], [place], [address], 08/10/2024 15:58:26 08/10/20 24 08/10/2024 CBC AUTO W DIFF lymphocyte# 1.5 cell/ mcL 1.3-2. 9 Not Available [facility] ([facility]) [address] [facility], [place], [address], 08/10/2024 15:58:26 08/10/20 24 08/10/2024 CBC AUTO W DIFF monocyte# 0.4 cell/ mcL 0.3-0. 8 Not Available [facility] ([facility]) [address] [facility], [place], [address], 08/10/2024 15:58:26 08/10/20 24 08/10/2024 CBC AUTO W DIFF eosinophil# 0.1 cell/ mcL 0-0.2 Not Available [facility] ([facility]) [address] [facility], [place], [address], 08/10/2024 15:58:26 08/10/20 24 08/10/2024 CBC AUTO W DIFF basophil# 0.0 cell/ mcL 0.0-1. 0 Not Available [facility] ([facility]) [address] [facility], [place], [address], 08/10/2024 15:58:26 08/10/20 24 08/10/2024 CBC AUTO W DIFF immature gramulocytes # 0.01 K/uL Not Available [facility] ([facility]) [address], [place], [address], 08/10/2024 15:58:26 08/10/20 24 08/10/2024 CBC AUTO W DIFF nucleated red blood cells # 0.00 K/uL Not Available [facility] ([facility]) [address], [place], [address], 08/10/2024 15:58:26 08/10/20 24 08/10/2024 CBC AUTO W DIFF manual differential NO Not Available [facility] ([facility]) [address] , [place], [address], 08/10/2024 15:58:26 08/10/2008/10/2024 HEMOG LOBIN A1C A1C 5.3 % 3.8-5. 6 GLYCO SYLAT ED HEMOG LOBIN (A1C) EXPEC KEYSHAWN RANGE S: <6.5 NON-D IABET IC 6.5-7 .5 EXCEL LENT 7.5-8 .5 GOOD >8.5 POOR Not Available [facility] ([facility]) [address] , [place], [address], 08/10/2024 16:26:32 08/10/2008/10/2024 IRON STUDY (IRON /TIBC /%SAT ) iron 47 mcg/m L 40-180 Not Available [facility] ([facility]) [address] , [place], [address], 08/10/2024 16:43:03 08/10/20 24 08/10/2024 IRON STUDY (IRON /TIBC /%SAT ) TIBC 423 mcg/d L 250-45 0 Not Available [facility] ([facility]) [address] , [place], [address], 08/10/2024 16:43:03 08/10/20 24 08/10/2024 IRON STUDY (IRON /TIBC /%SAT ) %sat 11 15-55 low Not Available [facility] ([facility]) [address] , [place], [address], 08/10/2024 16:43:03 08/10/20 24 08/10/2024 VITAM IN D, 25-HY DROXY vitamin D, 25-hydroxy 40.0 NG/mL 30.0-1 00.0 Not Available [facility] ([facility]) [address], [place], [address], 08/10/2024 17:15:03 08/10/20 24 08/10/2024 FOLIC ACID folate (folic acid), serum 10.1 NG/mL 8.6-58 .9 *Note : Refer alessandro singletary New Test Metho d in use. Not Available [facility] ([facility]) [address], [place], [address], 08/10/2024 17:15:05 08/10/20 24 08/10/2024 COMP METAB OLIC PANEL sodium 141 mmol/ L 136-14 5 Not Available [facility] ([facility]) [address], [place], [address], 08/10/2024 17:15:07 08/10/20 24 08/10/2024 COMP METAB OLIC PANEL potassium 4.1 mmol/ L 3.6-5. 0 Not Available [facility] ([facility]) [address], [place], [address], 08/10/2024 17:15:07 08/10/20 24 08/10/2024 COMP METAB OLIC PANEL chloride 105 mmol/ L 98-107 Not Available [facility] ([facility]) [address], [place], [address], 08/10/2024 17:15:07 08/10/20 24 08/10/2024 COMP METAB OLIC PANEL carbon dioxide 24.1 mmol/ L 21.0-3 2.0 Not Available [facility] ([facility]) [address], [place], [address], 08/10/2024 17:15:07 08/10/20 24 08/10/2024 COMP METAB OLIC PANEL anion gap 16.0 Not Available [facility] ([facility]) [address], [place], [address], 08/10/2024 17:15:07 08/10/20 24 08/10/2024 COMP METAB OLIC PANEL glucose 133 mg/dL 70-120 high Not Available [facility] ([facility]) [address] [facility], [place], [address], 08/10/2024 17:15:07 08/10/20 24 08/10/2024 COMP METAB OLIC PANEL BUN 12 mg/dL 7-18 Not Available [facility] ([facility]) [address] [facility], [place], [address], 08/10/2024 17:15:07 08/10/20 24 08/10/2024 COMP METAB OLIC PANEL creatinine 0.8 mg/dL 0.6-1. 3 Not Available [facility] ([facility]) [address] [facility], [place], [address], 08/10/2024 17:15:07 08/10/20 24 08/10/2024 COMP METAB OLIC PANEL glomerular filtration rate 94 mlper min 60- GFR LIMIT ATION : The eGFR equat ion CKD-E PI 2020 is not appli cable for pedia tric patie nts or great er than 90 years of age. The follo wing condi tions may alter the GFR resul t: extre mes in body size, malnu triti on or obesi ty, skele shashi muscl e disea se, parap legia or quadr ipleg ia, veget cherelle diet or rapid ly finn ing kiney funct ion. Not Available [facility] ([facility]) [address] , [place], [address], 08/10/2024 17:15:07 08/10/20 24 08/10/2024 COMP METAB OLIC PANEL total protein 7.0 g/dL 6.4-8. 2 Not Available [facility] ([facility]) [address], [place], [address], 08/10/2024 17:15:07 08/10/20 24 08/10/2024 COMP METAB OLIC PANEL albumin 3.6 g/dL 3.4-5. 0 Not Available [facility] ([facility]) [address], [place], [address], 08/10/2024 17:15:07 08/10/20 24 08/10/2024 COMP METAB OLIC PANEL globulin 3.4 Not Available [facility] ([facility]) [address], [place], [address], 08/10/2024 17:15:07 08/10/20 24 08/10/2024 COMP METAB OLIC PANEL alb/glob ratio 1.1 0.7-2 Not Available [facility] ([facility]) [address] , [place], [address], 08/10/2024 17:15:07 08/10/20 24 08/10/2024 COMP METAB OLIC PANEL calcium 8.5 mg/dL 8.5-10 .5 Not Available [facility] ([facility]) [address], [place], [address], 08/10/2024 17:15:07 08/10/20 24 08/10/2024 COMP METAB OLIC PANEL bilirubin total 0.30 mg/dL 0.10-1 .00 Not Available [facility] ([facility]) [address], [place], [address], 08/10/2024 17:15:07 08/10/20 24 08/10/2024 COMP METAB OLIC PANEL AST (SGOT) 18 U/L 0-37 Not Available [facility] ([facility]) [address] , [place], [address], 08/10/2024 17:15:07 08/10/20 24 08/10/2024 COMP METAB OLIC PANEL ALT (SGPT) 28 U/L 0-65 Not Available [facility] ([facility]) [address] , [place], [address], 08/10/2024 17:15:07 08/10/20 24 08/10/2024 COMP METAB OLIC PANEL alk phosphatase 77 U/L 46-116 Not Available [facility] ([facility]) [address], [place], [address], 08/10/2024 17:15:07 08/10/20 24 08/10/2024 LIPID PANEL triglyceride 240 mg/dL 30-200 high Not Available [facility] ([facility]) [address], [place], [address], 08/10/2024 17:15:09 08/10/20 24 08/10/2024 LIPID PANEL cholesterol 191 mg/dL 0-200 Not Available [facility] ([facility]) [address], [place], [address], 08/10/2024 17:15:09 08/10/20 24 08/10/2024 LIPID PANEL HDL 43 mg/dL 40-104 Not Available [facility] ([facility]) [address], [place], [address], 08/10/2024 17:15:09 08/10/20 24 08/10/2024 LIPID PANEL LDL calculated 100 mg/dL 0-130 Not Available [facility] ([facility]) [address] [facility], [place], [address], 08/10/2024 17:15:09 08/10/20 24 08/10/2024 ALEJANDRA TIN ferritin, serum 15 NG/mL 3-244 Not Available [facility] ([facility]) [address] [facility], [place], [address], 08/10/2024 17:15:10 08/10/20 24 08/10/2024 THYRO ID STIMU LATIN G HORMO NE thyroid stim hormone 0.94 mIU/L 0.36-3 .74 Not Available [facility] ([facility]) [address] [facility], [place], [address], 08/10/2024 17:15:11 08/10/20 24 08/10/2024 T4 FREE T4 free 0.72 NG/dL 0.76-1 .46 low Not Available [facility] ([facility]) [address] [facility], [place], [address], 08/10/2024 17:15:12 08/10/20 24 08/11/2024 PREAL BUMIN prealbumin 21 mg/dL 12-34 Perfo rmed at: - [facility] [place] [address] Lab Direc tor: Ivan beth PhD, Phone : [phone] Not Available [facility] ([facility]) [address] [facility], [place], [address], 08/11/2024 13:13:07 08/10/20 24 08/12/2024 COPPE R BLOOD copper, serum plasma 107 ug/dL 80-158 Speci men Comme nt: Test( s) 40439 6-[employer] per, Serum or Plasm a Speci men Comme nt: was devel oped and its perfo rmanc e johnathan norman risti cs Speci men Comme nt: deter mined by [facility]. It has not been lopez ared or appro fer Speci men Comme nt: by the Food and Drug Admin istra tion. Detec tion Limit = 5 Perfo rmed at: - [facility] [address] [id number] Lab Direc tor: Lynette horton MD, Phone : [phone] Not Available [facility] ([facility]) [address] [facility], [place], [address], 08/12/2024 06:14:56 08/10/20 24 08/12/2024 ZINC BLOOD zinc, plasma or serum 70 ug/dL 44-115 Speci men Comme nt: Test( s) 03948 0-Zin c, Plasm a or Serum Speci men Comme nt: was devel oped and its perfo rmanc e johnathan cte risti cs Speci men Comme nt: deter mined by [facility]. It has not been lopez ared or appro fer Speci men Comme nt: by the Food and Drug Admin istra tion. Detec tion Limit = 5 Perfo rmed at: [facility] [address] [place] [id number] Lab Direc tor: Lynette horton MD, Phone : [phone] Not Available [facility] ([facility]) [address] [facility], [place], [address], 08/12/2024 17:11:37 08/10/20 24 08/15/2024 SELEN IUM selenium 124 ug/L 93-198 Speci men Comme nt: Test( s) 04000 0-Kayleigh enium , Serum /Plas ma Speci men Comme nt: was devel oped and its perfo rmanc e johnathan cte risti cs Speci men Comme nt: deter mined by [facility]. It has not been lopez ared or appro fer Speci men Comme nt: by the Food and Drug Admin istra tion. Perfo rmed at: [facility] [address] [place] [id number] Lab Direc tor: Lynette horton MD, Phone : [phone] Not Available [facility] ([facility]) [address] [facility], [place], [address], 08/15/2024 10:09:59 08/10/20 24 08/19/2024 VITAM IN A vitamin A, serum 39.0 ug/dL 20.1-6 2.0 Refer ence inter vals for vitam in A deter mined from [facility] inter nal studi es. Indiv idual s with vitam in A less than 20 ug/dL are consi dered vitam in A defic ient and those with serum lili ntrat ions less than 10 ug/dL are consi dered sever bobby defic ient. . This test was devel oped and its perfo rmanc e johnathan cteri stics deter mined by [facility]. It has not been clear ed or appro fer by the Food and Drug Admin istra tion. Perfo rmed at: [facility] Imelda starr [facility] [place] [address] Lab Direc tor: Lynette horton MD, Phone : [phone] Not Available [facility] ([facility]) [address] [place], [address], 08/19/2024 15:12:28 08/10/20 24 08/19/2024 VITAM IN E vitamin E(alpha tocopherol) 13.5 mg/L 7.0-25 .1 Not Available [facility] ([facility]) [address] [facility], [place], [address], 08/19/2024 15:12:30 08/10/20 24 08/19/2024 VITAM IN E vitamin E(gamma tocopherol) 1.4 mg/L 0.5-5. 5 Refer ence inter vals for alpha and gamma -toco phero l deter mined from [facility] [employer] [facility] n Surve y, 2004- 2005. Indiv idual s with alpha -toco phero l level s less than 5.0 mg/L are consi dered vitam in E defic ient. Perfo rmed at: [facility] Imelda starr [address] [facility] [place] [address] Lab Direc tor: Lynette horton MD, Phone : [phone] Not Available [facility] ([facility]) [address], [place], [address], 08/19/2024 15:12:30 10/05/20 24 10/06/2024 FE+TI BC+FE R iron bind.cap.(TI BC) 478 ug/dL 250-45 0 above high normal Not Available [facility] ([facility]) [address] [place], [address], 10/17/2024 14:37:13 10/05/20 24 10/06/2024 FE+TI BC+FE R UIBC 417 ug/dL 131-42 5 normal Not Available [facility] ([facility]) [address] [place], [address], 10/17/2024 14:37:13 10/05/20 24 10/06/2024 FE+TI BC+FE R iron 61 ug/dL 27-159 normal Not Available [facility] ([facility]) [address] [place], [address], 10/17/2024 14:37:13 10/05/20 24 10/06/2024 FE+TI BC+FE R iron saturation 13 % 15-55 below low normal Not Available [facility] ([facility]) [address] [place], [address], 10/17/2024 14:37:13 10/05/20 24 10/06/2024 FE+TI BC+FE R ferritin 9 NG/mL 15-150 below low normal Not Available [facility] ([facility]) [address] [place], [address], 10/17/2024 14:37:13 10/05/20 24 10/06/2024 TSH+F REE T4 TSH 0.492 uIU/m L 0.450- 4.500 normal Not Available [facility] ([facility]) [address] [facility], [place], [address], 10/17/2024 14:37:14 10/05/20 24 10/06/2024 TSH+F REE T4 T4,free(dire ct) 1.00 NG/dL 0.82-1 .77 normal Not Available [facility] ([facility]) [address] [facility], [place], [address], 10/17/2024 14:37:14 10/05/20 24 10/06/2024 CBC WITH DIFFE RENTI AL/PL ATELE T WBC 4.8 x10e3 /uL 3.4-10 .8 normal Eff ectiv e Decem anjel 2023 profi collin 25940 5 WBC will be made* * non-o rdera ble as a stand -divine e order code. Not Available [facility] ([facility]) [address] [facility], [place], [address], 10/17/2024 14:37:15 10/05/20 24 10/06/2024 CBC WITH DIFFE RENTI AL/PL ATELE T RBC 4.64 x10e6 /uL 3.77-5 .28 normal Not Available [facility] ([facility]) [address] [facility], [place], [address], 10/17/2024 14:37:15 10/05/20 24 10/06/2024 CBC WITH DIFFE RENTI AL/PL ATELE T hemoglobin 13.2 g/dL 11.1-1 5.9 normal Not Available [facility] ([facility]) [address] [place], [address], 10/17/2024 14:37:15 10/05/20 24 10/06/2024 CBC WITH DIFFE RENTI AL/PL ATELE T hematocrit 40.8 % 34.0-4 6.6 normal Not Available [facility] ([facility]) [address] [place], [address], 10/17/2024 14:37:15 10/05/20 24 10/06/2024 CBC WITH DIFFE RENTI AL/PL ATELE T MCV 88 fL 79-97 normal Not Available [facility] ([facility]) [address] [place], [address], 10/17/2024 14:37:15 10/05/20 24 10/06/2024 CBC WITH DIFFE RENTI AL/PL ATELE T MCH 28.4 pg 26.6-3 3.0 normal Not Available [facility] ([facility]) [address] [place], [address], 10/17/2024 14:37:15 10/05/20 24 10/06/2024 CBC WITH DIFFE RENTI AL/PL ATELE T MCHC 32.4 g/dL 31.5-3 5.7 normal Not Available [facility] ([facility]) [address] [place], [address], 10/17/2024 14:37:15 10/05/20 24 10/06/2024 CBC WITH DIFFE RENTI AL/PL ATELE T RDW 12.7 % 11.7-1 5.4 Not Available [facility] ([facility]) [address] [place], [address], 10/17/2024 14:37:15 10/05/20 24 10/06/2024 CBC WITH DIFFE RENTI AL/PL ATELE T platelets 284 x10e3 /uL 150-45 0 normal Not Available [facility] ([facility]) [address] [place], [address], 10/17/2024 14:37:15 10/05/20 24 10/06/2024 CBC WITH DIFFE RENTI AL/PL ATELE T neutrophils 59 % not estab. normal Not Available [facility] ([facility]) [address] [place], [address], 10/17/2024 14:37:15 10/05/20 24 10/06/2024 CBC WITH DIFFE RENTI AL/PL ATELE T lymphs 27 % not estab. normal Not Available [facility] ([facility]) [address] [place], [address], 10/17/2024 14:37:15 10/05/20 24 10/06/2024 CBC WITH DIFFE RENTI AL/PL ATELE T monocytes 11 % not estab. normal Not Available [facility] ([facility]) [address] [facility], [place], [address], 10/17/2024 14:37:15 10/05/20 24 10/06/2024 CBC WITH DIFFE RENTI AL/PL ATELE T eos 2 % not estab. normal Not Available [facility] ([facility]) [address] [facility], [place], [address], 10/17/2024 14:37:15 10/05/20 24 10/06/2024 CBC WITH DIFFE RENTI AL/PL ATELE T basos 1 % not estab. normal Not Available [facility] ([facility]) [address] [place], [address], 10/17/2024 14:37:15 10/05/20 24 10/06/2024 CBC WITH DIFFE RENTI AL/PL ATELE T immature cells SECURITIES TRADER Not Available [facility] ([facility]) [address] [place], [address], 10/17/2024 14:37:15 10/05/20 24 10/06/2024 CBC WITH DIFFE RENTI AL/PL ATELE T neutrophils (absolute) 2.9 x10e3 /uL 1.4-7. 0 normal Not Available [facility] ([facility]) [address] [place], [address], 10/17/2024 14:37:15 10/05/20 24 10/06/2024 CBC WITH DIFFE RENTI AL/PL ATELE T lymphs (absolute) 1.3 x10e3 /uL 0.7-3. 1 normal Not Available [facility] ([facility]) [address] [facility], [place], [address], 10/17/2024 14:37:15 10/05/20 24 10/06/2024 CBC WITH DIFFE RENTI AL/PL ATELE T monocytes(ab solute) 0.5 x10e3 /uL 0.1-0. 9 normal Not Available [facility] ([facility]) [address] [facility], [place], [address], 10/17/2024 14:37:15 10/05/20 24 10/06/2024 CBC WITH DIFFE RENTI AL/PL ATELE T eos (absolute) 0.1 x10e3 /uL 0.0-0. 4 normal Not Available [facility] ([facility]) [address] [facility], [place], [address], 10/17/2024 14:37:15 10/05/20 24 10/06/2024 CBC WITH DIFFE RENTI AL/PL ATELE T baso (absolute) 0.0 x10e3 /uL 0.0-0. 2 normal Not Available [facility] ([facility]) [address] [facility], [place], [address], 10/17/2024 14:37:15 10/05/20 24 10/06/2024 CBC WITH DIFFE RENTI AL/PL ATELE T immature granulocytes 0 % not estab. Not Available [facility] ([facility]) [address] [facility], [place], [address], 10/17/2024 14:37:15 10/05/20 24 10/06/2024 CBC WITH DIFFE RENTI AL/PL ATELE T immature grans (abs) 0.0 x10e3 /uL 0.0-0. 1 Not Available [facility] ([facility]) [address] [facility], [place], [address], 10/17/2024 14:37:15 10/05/20 24 10/06/2024 CBC WITH DIFFE RENTI AL/PL ATELE T NRBC SECURITIES TRADER Not Available [facility] ([facility]) [address] [facility], [place], [address], 10/17/2024 14:37:15 10/05/20 24 10/06/2024 CBC WITH DIFFE RENTI AL/PL ATELE T hematology comments: SECURITIES TRADER Not Available [facility] ([facility]) [address] [facility], [place], [address], 10/17/2024 14:37:15 10/05/20 24 10/06/2024 COMP. METAB OLIC PANEL (14) glucose 100 mg/dL 70-99 above high normal Not Available [facility] ([facility]) [address] [facility], [place], [address], 10/17/2024 14:37:17 10/05/20 24 10/06/2024 COMP. METAB OLIC PANEL (14) BUN 8 mg/dL 6-24 normal Not Available [facility] ([facility]) [address] [facility], [place], [address], 10/17/2024 14:37:17 10/05/20 24 10/06/2024 COMP. METAB OLIC PANEL (14) creatinine 0.66 mg/dL 0.57-1 .00 normal Not Available [facility] ([facility]) [address] [facility], [place], [address], 10/17/2024 14:37:17 10/05/20 24 10/06/2024 COMP. METAB OLIC PANEL (14) eGFR 112 mL/mi n/1.7 3 >59 normal Not Available [facility] ([facility]) [address] [facility], [place], [address], 10/17/2024 14:37:17 10/05/20 24 10/06/2024 COMP. METAB OLIC PANEL (14) BUN/creatini ne ratio 12 9-23 normal Not Available [facility] ([facility]) [address] [facility], [place], [address], 10/17/2024 14:37:17 10/05/20 24 10/06/2024 COMP. METAB OLIC PANEL (14) sodium 138 mmol/ L 134-14 4 normal Not Available [facility] ([facility]) [address] [facility] [place], [address], 10/17/2024 14:37:17 10/05/20 24 10/06/2024 COMP. METAB OLIC PANEL (14) potassium 4.9 mmol/ L 3.5-5. 2 normal Not Available [facility] ([facility]) [address] [facility] [place], [address], 10/17/2024 14:37:17 10/05/20 24 10/06/2024 COMP. METAB OLIC PANEL (14) chloride 103 mmol/ L 96-106 normal Not Available [facility] ([facility]) [address] [facility] [place], [address], 10/17/2024 14:37:17 10/05/20 24 10/06/2024 COMP. METAB OLIC PANEL (14) carbon dioxide, total 23 mmol/ L 20-29 normal Not Available [facility] ([facility]) [address] [facility] [place], [address], 10/17/2024 14:37:17 10/05/20 24 10/06/2024 COMP. METAB OLIC PANEL (14) calcium 8.9 mg/dL 8.7-10 .2 normal Not Available [facility] ([facility]) [address] [facility] [place], [address], 10/17/2024 14:37:17 10/05/20 24 10/06/2024 COMP. METAB OLIC PANEL (14) protein, total 6.3 g/dL 6.0-8. 5 normal Not Available [facility] ([facility]) [address] [facility], [place], [address], 10/17/2024 14:37:17 10/05/20 24 10/06/2024 COMP. METAB OLIC PANEL (14) albumin 4.1 g/dL 3.9-4. 9 normal Not Available [facility] ([facility]) [address] [place], [address], 10/17/2024 14:37:17 10/05/20 24 10/06/2024 COMP. METAB OLIC PANEL (14) globulin, total 2.2 g/dL 1.5-4. 5 Not Available [facility] ([facility]) [address] [place], [address], 10/17/2024 14:37:17 10/05/20 24 10/06/2024 COMP. METAB OLIC PANEL (14) bilirubin, total 0.3 mg/dL 0.0-1. 2 normal Not Available [facility] ([facility]) [address] [facility], [place], [address], 10/17/2024 14:37:17 10/05/20 24 10/06/2024 COMP. METAB OLIC PANEL (14) alkaline phosphatase 83 IU/L 44-121 normal Not Available [facility] ([facility]) [address] [place], [address], 10/17/2024 14:37:17 10/05/20 24 10/06/2024 COMP. METAB OLIC PANEL (14) AST (SGOT) 19 IU/L 0-40 normal Not Available [facility] ([facility]) [address] [facility] [place], [address], 10/17/2024 14:37:17 10/05/20 24 10/06/2024 COMP. METAB OLIC PANEL (14) ALT (SGPT) 17 IU/L 0-32 normal Not Available [facility] ([facility]) [address] [facility] [place], [address], 10/17/2024 14:37:17 10/05/20 24 10/06/2024 LIPID PANEL cholesterol, total 191 mg/dL 100-19 9 normal Not Available [facility] ([facility]) [address] [place], [address], 10/17/2024 14:37:18 10/05/20 24 10/06/2024 LIPID PANEL triglyceride s 133 mg/dL 0-149 normal Not Available [facility] ([facility]) [address] [place], [address], 10/17/2024 14:37:18 10/05/20 24 10/06/2024 LIPID PANEL HDL cholesterol 41 mg/dL >39 normal Not Available [facility] ([facility]) [address] [place], [address], 10/17/2024 14:37:18 10/05/20 24 10/06/2024 LIPID PANEL VLDL cholesterol arsh 24 mg/dL 5-40 Not Available [facility] ([facility]) [address] [place], [address], 10/17/2024 14:37:18 10/05/20 24 10/06/2024 LIPID PANEL LDL chol calc ([facility]) 126 mg/dL 0-99 above high normal Not Available [facility] ([facility]) [address] [place], [address], 10/17/2024 14:37:18 10/05/20 24 10/06/2024 LIPID PANEL LDL calc comment: SECURITIES TRADER Not Available [facility] ([facility]) [address] [place], [address], 10/17/2024 14:37:18 10/05/20 24 10/15/2024 VITAM IN E vitamin E(alpha tocopherol) 11.1 mg/L 7.0-25 .1 Not Available [facility] ([facility]) [address] [place], [address], 10/17/2024 14:37:19 10/05/20 24 10/15/2024 VITAM IN E vitamin E(gamma tocopherol) 0.9 mg/L 0.5-5. 5 Refer ence inter vals for alpha and gamma -toco phero l deter mined from [facility] natio n Surve y, 2004- 2005. Indiv idual s with alpha -toco phero l level s less than 5.0 mg/L are consi dered vitam in E defic ient. Not Available [facility] ([facility]) [address] [place], [address], 10/17/2024 14:37:19 10/05/20 24 10/06/2024 HEMOG LOBIN A1C hemoglobin A1C 5.5 % 4.8-5. 6 normal Predi abete s: 5.7 - 6.4 Diabe brab: >6.4 Glyce walker contr ol for adult s with diabe barb: <7.0 Not Available [facility] ([facility]) [address] [facility], [place], [address], 10/17/2024 14:37:20 10/05/20 24 10/06/2024 FOLAT E (FOLI C ACID) , SERUM folate (folic acid), serum 10.2 NG/mL >3.0 normal A serum folat e lili ntrat ion of less than 3.1 ng/mL is consi dered to repre sent clini arsh defic iency . Not Available [facility] ([facility]) [address] [facility], [place], [address], 10/17/2024 14:37:21 10/05/20 24 10/15/2024 VITAM IN A, SERUM vitamin A 33.7 ug/dL 20.1-6 2.0 Refer ence inter vals for vitam in A deter mined from [facility] inter nal studi es. Indiv idual s with vitam in A less than 20 ug/dL are consi dered vitam in A defic ient and those with serum lili ntrat ions less than 10 ug/dL are consi dered sever bobby defic ient. This test was [facility] and its perfo phillip e johnathan rivera stics deter mined by [facility]. It has not been clear ed or appro fer by the Food and Drug Admin istra tion. Not Available [facility] ([facility]) [address] [facility], [place], [address], 10/17/2024 14:37:22 10/05/20 24 10/06/2024 VITAM IN D, 25-HY DROXY vitamin D, 25-hydroxy 35.8 NG/mL 30.0-1 00.0 Vitam in D defic iency has been [...] Medic ine). 2009. Dieta ry refer ence darvin es for calci um and D. Karissa starr [place]: [facility] . 2. Milagro taylor MF, Elier ey [place], Lorene off-F errar i PALOMARES, et al. Evalu ation , treat ment, and preve ntion of vitam in D defic iency : an Endoc rine Socie ty clini arsh pract ice guide line. JCEM. 2010; 96(7) :1911 -30. Not Available [facility] ([facility]) [address] [facility], [place], [address], 10/17/2024 14:37:24 10/05/20 24 10/08/2024 VITAM IN B1 (THIA MINE) , BLOOD vit. B1, whole blood 146.3 nmol/ L 66.5-2 00.0 Not Available [facility] ([facility]) [address] [facility], [place], [address], 10/17/2024 14:37:25 10/05/20 24 10/10/2024 METHY LMALO VIVIANA ACID, SERUM methylmaloni c acid, serum 164 nmol/ L 0-378 Not Available [facility] ([facility]) [address] [facility], [place], [address], 10/17/2024 14:37:26 10/05/20 24 10/08/2024 COPPE R, SERUM OR PLASM A copper, serum or plasma 115 ug/dL 80-158 Detec tion Limit = 5 Not Available [facility] ([facility]) [address] [facility], [place], [address], 10/17/2024 14:37:27 10/05/20 24 10/11/2024 ZINC, PLASM A OR SERUM zinc, plasma or serum 61 ug/dL 44-115 normal Detec tion Limit = 5 Not Available [facility] ([facility]) [address] [facility], [place], [address], 10/17/2024 14:37:28 10/05/20 24 10/06/2024 PREAL BUMIN prealbumin 19 mg/dL 12-34 Not Available [facility] ([facility]) [address] [facility], [place], [address], 10/17/2024 14:37:29 10/05/20 24 10/17/2024 SELEN IUM, BLOOD selenium, blood 125 ug/L 100-34 0 Detec tion Limit = 10 Not Available [facility] ([facility]) [address] [facility], [place], [address], 10/17/2024 14:37:30 05/06/20 24 05/06/2024 ugi with [facility] [address] [place] [address] Phone: Fax: Name: CLARA NIEVES Exam Date: 6/06/01 : [birth year] Age 43 years Gender : F Access ion: [id number] Physic brian: YOHANNES IRAHETA Facili ty: [facility] Facili ty HSV: Outpat ient Exam: UGI WITH KUB UPPER GI SERIES HISTOR Y: Status post gastri c bypass in February, diffic ulty keepin g foods and liquid s down. PROCED URE: The patien t ingest ed thick and thin barium contra st. Spot films were perfor med. FINDIN GS: Assistant Director film is unrema rkable . The esopha livia is unrema rkable . There are no mucosa l defect s identi fied. Motili ty is normal . There are postop erativ e change s of gastri c bypass . There is no eviden ce of GG fistul a. There is severe narrow ing of the GJ anasto mosis. The gastri c pouch appear s promin ent. Gastro esopha geal reflux is demons trated to the thorac ic inlet with the patien t standi ng. Fluoro scopy time: 1.3 minute s Total images : 21 Radiat ion exposu re in Refere nce air Kerma: 137.81 mGy IMPRES JOSE R: Postop erativ e change s of gastri c bypass . There is severe narrow ing at the GJ anasto mosis. Only a small amount of contra st passes throug h this during the examin ation. Gastro esopha geal reflux is seen to the thorac ic inlet. Gastri c pouch appear s promin ent. Images review ed, interp reted, and dictat ed by Dr. Otoniel Boone Transc ribed by Catarino Davis PA-C Dictat ed By: OTONIEL BOONE Transc ribed By: Otoniel Boone Transc ribed On: 11:25 AM Electr onical ly signed by: OTONIEL BOONE Thank you for referr CLARA Douglas to [facility]. Legall y authen ticate d by POPE OTONIEL Vasquez 05-06 11:25: 36 CC'ed Logic: Orderi ng Provid er: MYRTLE Wolfe Attend ing Provid er: MYRTLE Wolfe Referr ing Provid er: MYRTLE Wolfe Admitt ing Provid er: MYRTLE Wolfe [email or web address] [facility] [address] [facility], [place], [address], 05/06/2024 15:40:19 10/05/20 24 10/05/2024 XR, abdom en, 1 view [facility] [address] [place] [address] Phone: Fax: Name: CLARA NIEVES Exam Date: 2023 : [birth year] Age 44 years Gender : F Access ion: [id number] Physic brian: YOHANNES IRAHETA Facili ty: [facility] Facili ty HSV: Outpat ient Exam: ABD KUB 1V EXAM DESCRI PTION: ABD KUB 1V CLINIC AL HISTOR Y: 44 years Female , bd pain COMPAR OSIRIS: None. FINDIN GS: The bowel gas patter n is unrema rkable . Air and stool seen scatte red throug hout the colon. IMPRES JOSE R: No radiog raphic eviden ce of acute diseas e. Electr onical ly signed by:Jacob Caballero MD09/17 10:47 PM EST RP Workst ation: [id number] Dictat ed By: Orlando Caballero Transc ribed By: Transc ribed On: 2023 3:30 PM Electr onical ly signed by: Orlando Caballero 2023 Thank you for referr ing EZEQUIEL CLARA Jacob to [facility]. Legall y authen ticate d by DEBRA Jacob 2023-11 15:30: 10 CC'ed Logic: Orderi ng Provid er: MYRTLE Wolfe Attend ing Provid er: MYRTLE Wolfe Referr ing Provid er: MYRTLE Wolfe Admitt ing Provid er: MYRTLE Wolfe [email or web address] [facility] [address] [facility], [place], [address], 10/07/2024 10:06:32 Result Notes Documentation Provider Name and Address Organization Details Recorded Time Xr, Abdomen, 1 View : [facility] [address] [place] [address] Name: ANDREW NIEVES Exam Date: 10/05/2024 : 1980 Age 44 years Gender: F Physician: ROCKY IRAHETA Facility: [facility] Facility HSV: Outpatient Exam: ABD KUB 1V EXAM DESCRIPTION: ABD RADHA 1V CLINICAL HISTORY: 44 years Female, bd pain COMPARISON: None. FINDINGS: The bowel gas pattern is unremarkable. Air and stool seen scattered throughout the colon. IMPRESSION: No radiographic evidence of acute disease. Electronically signed by:Joe Caballero MD10/05/2024 10:47 PM [facility] Dictated By: Joe Caballero Transcribed By: Transcribed On: 10/05/2024 3:30 PM Electronically signed by: Joe Caballero 10/05/2024 Thank you for referring ANDREW NIEVES to [facility]. Legally authenticated by DEBRA LEE 2024-10-05 15:30:10 CC'ed Logic: Ordering Provider: MYRTLE HIDALGO Attending Provider: MYRTLE HIDALGO Referring Provider: MYRTLE HIDALGO Admitting Provider: MYRTLE eason, [place] - [facility] & [place] 10/07/2024 10:06:32 Problems Name Problem SNOMED Code Status Onset Date Resolution Date Notes Provider Name and Address Organization Details Recorded Time Anxiety 37812312 Active 2023 Karri Turner, DNP, DIRECTOR LIFE SCIENCES, SECURITIES TRADER-C [address] [facility], [place], [address] , [place] - [facility] & [place] 13:13:29 Vitamin D deficiency 17126806 Active 2023 Karri Turner DNP, DIRECTOR LIFE SCIENCES, SECURITIES TRADER-C [address], [place], [address] , [place] - [facility] - [place] & [place] 4 13:13:36 Hypothyroi dism 65838238 Active 2023 Karri Turner DNP, NATALI, SECURITIES TRADER-C [address], [place], [place], [address] [place] [address] , [place] - [facility] - [place] & [place] 4 13:13:50 Unintentio nal weight gain 1885213877248 04 Active 2023 Karri Turner DNP, NATALI, SECURITIES TRADER-C [address], [place], [place], [address] [place] [address] , [place] - [facility] & [place] 4 14:59:35 Morbid obesity 222499312 Active 2023 Karri Turner DNP, APRN, SECURITIES TRADER-C [address], [place], [place], [address] [place] [address] , [place] - [facility] & [place] 4 14:59:44 Laparoscop ic sleeve gastrectom y Active 2023 Karri Turner DNP, DIRECTOR LIFE SCIENCES, SECURITIES TRADER-C [address], [place], [address] , [place] [facility] & [place] 4 15:00:08 Heartburn 99763017 Active 2023 Karri Turner DNP, DIRECTOR LIFE SCIENCES, SECURITIES TRADER-C [address], [place], [address] , [place] - [facility] & [place] 4 15:01:11 Polycystic ovary syndrome 989430990 Active 2023 Karri Turner DNP, DIRECTOR LIFE SCIENCES, SECURITIES TRADER-C [address], [place], [address] , [place] - [facility] & [place] 4 15:02:15 Restless legs syndrome 24706046 Active 2023 Karri Turner, YAS, DIRECTOR LIFE SCIENCES, SECURITIES TRADER-C [address], [place], [address] , [place] [facility] - [place] & [place] 4 15:02:25 Nausea 262928308 Active 2023 Karri Turner, YAS, DIRECTOR LIFE SCIENCES, SECURITIES TRADER-C [address], [place], [place], [address] [place] [address] , [place] [facility] & [place] 4 09:16:50 Vomiting 890717431 Active 2023 Karri Turner, YAS, DIRECTOR LIFE SCIENCES, SECURITIES TRADER-C [address], [place], [place], [address] [place] [address] , [place] [facility] & [place] 4 09:16:59 Stricture of esophagus 42765188 Active 2023 Karri Turner DNP, DIRECTOR LIFE SCIENCES, SECURITIES TRADER-C [address], [place], [place], [address] [place] [address] , [place] [facility] & [place] 4 09:26:37 Mild dehydratio n 0810247198199 Active 2023 Karri Turner DNP, DIRECTOR LIFE SCIENCES, SECURITIES TRADER-C [address], [place], [place], [address] [place] [address] , [place] [facility] - [place] & [place] 4 09:27:11 Problem Notes None recorded. Procedures Surgical History Date Name Laterality Status Provider Name and Address Organization Details Recorded Time 11/16/19 23 Other completed Jean Carlos Delgado [place] - [facility] - [place] & [place] 02/09/2024 09:05:46 11/16/19 20 LASIK completed Jean Carlos BROWNLEE - [facility] - [place] & [place] 02/09/2024 09:05:46 11/16/19 16 laparoscopic sleeve gastrectomy completed SUMANTH Powers [address], [place], [address], [place] - [facility] - [place] & [place] 01/07/2024 10:35:43 11/16/19 16 Other completed Jean Carlos BROWNLEE [facility] & [place] 02/09/2024 09:05:46 section completed Rebeka Fermin [facility] & [place] 11/25/2023 13:04:48 Tubal Ligation completed Amandanayely Chaney [facility] & [place] 01/05/2024 15:09:36 extraction of wisdom tooth completed Amanda Chaney [facility] & [place] 01/05/2024 15:09:41 Tonsillectomy completed Amanda Chaney [facility] & [place] 01/05/2024 15:09:51 removal of gastric band completed [address], [place], [address] & [place] 01/07/2024 10:35:57 laparoscopic adjustable gastric banding completed [address], [place], [address] & [place] 01/07/2024 10:35:50 Gastric bypass for obesity completed Rebeka Mcdaniel [facility] & [place] 04/22/2024 09:28:15 Imaging Results None recorded. Procedure Notes None recorded. Medical Equipment None Reported. Allergies Allergen ID Allergen Name Allergen Category Reaction Reaction Severity Criticality Documentation Date Start Date Code Code System Note Provider Name and Address Organization Details Recorded Time 578685 latex environme nt,medica tion rash Not available Not available 11/18/2023 93489 91 RxNorm TORRIE Goldberg [facility] & [place] 15:15:17 Medications Name Sig Start Date Stop Date Status Note LastModified by Organization Details LastModified Time fluoxetine 40 mg capsule TAKE 1 CAPSULE BY MOUTH DAILY. active Not Available Not Available No t Available amoxicillin 500 mg capsule active Not Available Not Available Not Available metformin 500 mg tablet TAKE 1 TABLET BY MOUTH TWICE DAILY. active Not Available Not Available No t Available promethazin e-DM 6.25 mg-15 mg/5 mL oral syrup 08/10 completed Not Available Not Available Not Available Tylenol 500 mg capsule Take 2 tablets every 6 hours by oral route. 02/23 completed Not Available Not Available Not Available atorvastati n 20 mg tablet TAKE 1 TABLET BY MOUTH ONCE DAILY. 10/05 completed Not Available Not Available Not Available divalproex 250 mg tablet,sabiha yed release TAKE ONE TABLET BY MOUTH 3 TIMES DAILY 08/10 completed Not Available Not Available Not Available azithromyci n 250 mg tablet TAKE 2 TABLETS BY MOUTH TODAY THEN 1 TABLET BY MOUTH ONCE A DAY FOR 4 DAYS 01/05 completed Not Available Not Available Not Available fluconazole 150 mg tablet TAKE 1 TABLET BY MOUTH EVERY 3 DAYS 06/15 completed Not Available Not Available Not Available phenazopyri dine 200 mg tablet TAKE 1 TABLET BY MOUTH EVERY 8 HOURS FOR PAIN FOR 2 DAYS 06/15 completed Not Available Not Available Not Available prednisone 20 mg tablet 02/23 completed Not Available Not Available Not Available Ferrex 150 mg iron capsule TAKE ONE CAPSULE BY MOUTH ONCE DAILY 11/25 completed Not Available Not Available Not Available clonazepam 1 mg tablet TAKE 1 TABLET BY MOUTH DAILY NEEDED FOR ANXIETY. active Not Available Not Available No t Available sumatriptan 50 mg tablet TAKE 1 TABLET AT ONSET OF HEADACHE, MAY REPEAT DOSE IN 2 HOURS IF NEEDED.DO NOT TAKE MORE THAN 2 TABLETS IN 24 HOURS active Not Available Not Available No t Available ciprofloxac in 500 mg tablet 06/15 completed Not Available Not Available Not Available sulfamethox azole 800 mg-trimetho prim 160 mg tablet 04/22 completed Not Available Not Available Not Available pantoprazol e 20 mg tablet,sabiha yed release TAKE 1 TABLET BY MOUTH ONCE DAILY. active Not Available Not Available No t Available thiamine HCl (vitamin B1) 100 mg/mL injection solution Take 200 mg by injection route. 2023 active Not Available Not Available Not Avai lable Vitamin D3 10 mcg (400 unit) tablet TAKE ONE (1) & (1/2) TABLETS BY MOUTH EVERY DAY 11/25 completed Not Available Not Available Not Available methocarbam ol 750 mg tablet TAKE 1 TABLET BY MOUTH 3 TIMES DAILY. active Not Available Not Available No t Available dexamethaso ne 1 mg tablet TAKE 6 TABLETS BY MOUTH ONCE FOR 1 DOSE. 02/23 completed Not Available Not Available Not Available cyanocobala min (vit B-12) 1,000 mcg/mL injection solution Inject 1000 microgram s by subcutane ous route. 2023 active Not Available Not Available Not Avai lable trazodone 150 mg tablet TAKE 1/2 TABLET BY MOUTH ONCE DAILY NEEDED AT BEDTIME. active Not Available Not Available No t Available oseltamivir 75 mg capsule TAKE 1 CAPSULE BY MOUTH TWICE DAILY FOR 5 DAYS 02/23 completed Not Available Not Available Not Available levothyroxi ne 125 mcg tablet TAKE 1 TABLET BY MOUTH ONCE DAILY. active Not Available Not Available No t Available ibuprofen 400 mg tablet Take 1 tablet every 4 hours by oral route as needed. 01/07 completed Not Available Not Available Not Available gabapentin 300 mg capsule TAKE 1 CAPSULE BY MOUTH 3 TIMES A DAY FOR 7 DAYS. 04/22 completed Not Available Not Available Not Available Tussin DM 10 mg-100 mg/5 mL oral liquid 02/23 completed Not Available Not Available Not Available ergocalcife rol (vitamin D2) 1,250 mcg (50,000 unit) capsule TAKE 1 CAPSULE BY MOUTH ONCE WEEKLY. active Not Available Not Available No t Available methylpredn isolone 4 mg tablets in a dose pack TAKE 6 TABLETS ON DAY 1,THEN 5 TABS ON DAY 2,THEN 4 TABS ON DAY 3, 3 TABS ON DAY 4,THEN 2 TABS ON DAY 5 AND 1 TAB ON DAY 6. *TAKE WITH FOOD* 11/25 completed Not Available Not Available Not Available celecoxib 100 mg capsule TAKE 1 CAPSULE TWICE A DAY BY MOUTH FOR 7 DAYS. 06/15 completed Not Available Not Available Not Available bromphenira mine-pseudo ephedrine-D M 2 mg-30 mg-10 mg/5 mL oral syrup TAKE 10 ML BY MOUTH EVERY 4 HOURS FOR 5 DAYS. 11/25 completed Not Available Not Available Not Available ondansetron 4 mg disintegrat ing tablet DISSOLVE 1 TABLET ON THE TONGUE 6 TO 8 HOURS active Not Available Not Available No t Available cefdinir 300 mg capsule 11/25 completed Not Available Not Available Not Available amoxicillin 875 mg-potassiu m clavulanate 125 mg tablet 08/10 completed Not Available Not Available Not Available amoxicillin 500 mg-potassiu m clavulanate 125 mg tablet TAKE ONE TABLET BY MOUTH THREE TIMES DAILY FOR 7 DAYS 11/25 completed Not Available Not Available Not Available Ventolin HFA 90 mcg/actuati on aerosol inhaler INHALE 2 PUFFS INTO THE LUNGS EVERY 4 HOURS NEEDED FOR WHEEZING. active Not Available Not Available No t Available rosuvastati n 20 mg tablet 02/08 completed Not Available Not Available Not Available nitrofurant oin monohydrate /macrocryst als 100 mg capsule TAKE 1 CAPSULE BY MOUTH 2 TIMES DAILY FOR 5 DAYS 11/25 completed Not Available Not Available Not Available fenofibrate nanocrystal lized 145 mg tablet TAKE 1 TABLET BY MOUTH ONCE DAILY. active Not Available Not Available No t Available FeroSul 325 mg (65 mg iron) tablet TAKE 1 TABLET BY MOUTH TWICE DAILY. active Not Available Not Available No t Available Vitals Date Recorded Body height Body mass index (BMI) Body weight Body temperature Heart rate Systolic And Diastolic Provider Name and Address Organization Details Last Updated DateTime 4 165.1 cm 40.1 kg/m2 899748. 76 g 98.2 [degF] 78 /min 125/89 mm[Hg] Rebeka Mcdaniel [facility] 4 09:28:32 Date Recorded Body height Body temperature Heart rate Body mass index (BMI) Body weight Systolic And Diastolic Provider Name and Address Organization Details Last Updated DateTime 4 165.1 cm 97.1 [degF] 91 /min 38.1 kg/m2 413893. 01 g 121/80 mm[Hg] Rebeka Mcdaniel [facility] & [place] 4 08:59:43 Date Recorded Body height Body mass index (BMI) Body weight Body temperature Heart rate Systolic And Diastolic Provider Name and Address Organization Details Last Updated DateTime 4 165.1 cm 36.3 kg/m2 21211.1 4 g 97.6 [degF] 99 /min 112/87 mm[Hg] Christie Song [facility] & [place] 4 14:42:52 Date Recorded Body height Body temperature Heart rate Body mass index (BMI) Body weight Systolic And Diastolic Provider Name and Address Organization Details Last Updated DateTime 4 165.1 cm 98.1 [degF] 94 /min 37.1 kg/m2 034121. 38 g 128/91 mm[Hg] Rebeka Mcdaniel [facility] & [place] 13:29:27 Social History Question Answer Notes LastModified by Organizat ion Details LastModified Time Tobacco Smoking Status Former Smoker Dorcas eason, [facility] & [place] 11/18/2023 15:16:38 Do You Have An Advance Directive? No [email or web address] Information not available 02/09/2024 Are You Blind Or Do You Have Difficulty Seeing? No [email or web address] Information not available 02/09/2024 Are You Passively Exposed To Smoke? No Information not available 02/09/2024 Sex: Female Functional Status Question Answer Note LastModified by Organizat ion Details LastModified Time Do you use any illicit or recreational drugs? No [email or web address] Information not available 11/18/2023 Do you or have you ever used any other forms of tobacco or nicotine? No [email or web address] Information not available 11/18/2023 What is your level of alcohol consumption? None Information not available 11/18/2023 What is your exercise level? Occasional [email or web address] Information not available 02/09/2024 Mental Status None recorded. Family History Relationship Description Onset Age of this Age Resolved Age Notes LastModified by Organization Details LastModified Time Father Obesity [email or web address] Not available 11/18/2023 15:17:51 Father Diabetes mellitus [email or web address] Not available 05/18 08:56:59 Father Hypertensive disorder Not available 2023 15:18:46 Father Hypercholest erolemia [email or web address] Not available 15:12:53 Father Sleep apnea [email or web address] Not roberto ilable 06/15/2024 08:56:59 Mother Obesity [email or web address] Not available 11/18/2023 15:17:51 Mother Hypercholest erolemia [email or web address] Not available 15:12:53 Maternal Grandfather Obesity [email or web address] Not available 01/2024 15:17:51 Maternal Grandfather Hypertensive disorder [email or web address] Not available 2023 15:18:46 Maternal Grandfather Hypercholest erolemia [email or web address] Not available 15:12:53 Brother Obesity [email or web address] Not availabl e 11/18/2023 15:17:51 Brother Hypercholest erolemia [email or web address] Not available 15:12:53 Maternal Grandmother Hypertensive disorder [email or web address] Not available 2023 15:18:46 Maternal Grandmother Hypercholest erolemia [email or web address] Not available 15:12:53 Maternal Grandmother Sleep apnea [email or web address] Not availabl e 06/15/2024 08:56:59 Maternal Grandmother Chronic obstructive pulmonary disease [email or web address] Not available 15:13:19 Medical History Condition Response Diabetes N Anxiety Disorder Y Other Y Obesity Y Hyperthyroidism Y Back Problems Y Thyroid Problems Y Depression Y Anemia Y Reflux/GERD Y Sleep Apnea N High Cholesterol N Liver Disease Y Heart Disease N Pulmonary Embolism N Headaches Y Deep Vein Thrombosis N Hypertension N Gynecological History Statement/Question Response Abnormal Pap N Flow Heavy Date of LMP 01/05/2024 Sexually Active? Y Menses Monthly Y Duration of Flow (days) 6 Current Control Method Tubal Ligat ion Age at Menarche 12 Obstetrics History GPAL:G 0 P 0 0 0 0 Past Encounters Encounter ID Performer Location Encounter Start Date Encounter Closed Date Diagnosis/Indication Diagnosis SNOMED-CT Code Diagnosis ICD10 Code Diagnosis IMO Codes Diagnosis Note [id number] Karri Turner, DNP, DIRECTOR LIFE SCIENCES, SECURITIES TRADER-C [facility] [address] [facility] [address] [place] [address] 11/25/2023 12:50:51 11/25/2023 14:22:10 Anxiety 64934930 F41.9 Vitamin D deficiency 347 82521 E55.9 Hypothyroidism 35208462 E03.9 Unintentio nal weight gain 4297394768 07251 R63.5 Morbid obesity 941253331 E66.01 . History of bariatric surgical procedure 643902060 Z98.84 Advised qid intake 50% protein 9060-1683 calories/d y less than 100 carbs/dy Long discussion today of InBody results including PBF(percen t body fat) SMM (skeletal muscle mass) Visceral fat level level BMR Segmental Fat Analysis and Segmental Lean Analysis. Patient encouraged pt to take minimal calories as per BMR and to anticipate changes in SMM and PBF values not just total weight. Repeat SHYANNE in 2-3mth suggested Patient is to have bariatric vitamin lab panel. Patient was reassured on today's visit. Dialogue content in great detail regarding the benefits of proper diet as well as regular and routine exercise. In regards to exercise, we discussed reaching target heart rate for least 20 minutes 3 times a week. We also highlighte d the importance of staying well hydrated. Proper handwashin g was also encouraged . Patient was advised to keep in close contact with their primary care provider and/or any specialty provider (s). We will contact patient with any deficienci es. will have dietiticia n speak to her today. will also have insurance coordinato r speak with her in regards to procedure of moving forward to possible RNY bypass. Will proceed with egd. Heartburn 45849161 R12 Polycystic ovary syndrome 515712792 E28.2 Restless l egs syndrome 43005414 G25.81 [id number] SUMANTH Powers [facility] [address] [facility] [address] [place] [address] 01/07/2024 07:58:37 01/07/2024 11:25:51 Obesity 247877330 E66.9 The patient will be scheduled for the following. Initial intake lab work, cardiac clearance, and EGD. All risks complicati ons and alternativ es of the upper endoscopy were discussed with the patient and agreed upon. These include but are not limited to, over sedation, bleeding, perforatio n.Patient will be educated by the surgical weight loss team regarding if any medical managed weight loss will be required and they will follow this according to their recommenda tions.ginger ent will follow-up in office after all testing has been completed Discussed Valente-en-Y gastric bypass in depth including postoperat gabo vitamin concerns. The importance of daily vitamin supplement ation was discussed specifical ly common deficienci es with Valente-en-Y of iron B12 and B1/thiamin . We discussed lifelong contraindi cated medication including NSAIDs and steroids and specifical ly the risk for poor healing/le ak/anastom otic ulcer. Also discussed lifelong contraindi cation to tobacco/ni cotine use Polycystic ovary syndrome 763199055 E28.2 Hypothyroidism 40620853 E03.9 Vitamin D deficiency 347 93841 E55.9 History of sleeve gastrectomy 5016267196 57209 Z90.3 hx of AGB Heartburn 92311789 R12 12/24/23 EGD Findings: Healthy sleeve with significan t retained fundus, very small sliding hiatal hernia Pre-surger y evaluation 751298237 Z01.818 Iron deficiency 22609524 E61.1 [id number] Steve Morris MD [facility] [address] [place] [address] 02/09/2024 09:00:50 02/09/2024 10:08:23 Hypothyroidism 81052489 E03.9 on supplement Morbid obesity 685976338 E66.01 Now considerin g surgery.Lo w-carbohyd rate and low-fat dietIncrea se exercise to 30 minutes a day.Increa se fruits and fresh vegetable intake and decrease processed foods and sugars Preoperati ve cardiovascular examination 288867755 Z01.810 Good functional capacity with no prior cardiac history. Patient is low risk for cardiovasc ular complicati ons. ECG completed today in office and personally reviewed and interprete d: No further cardiac testing warranted at this point. No need to return to clinic unless cardiac concerns presents or patient wishes to [id number] SHONDA MELISSA RD, LD [facility] [address] [facility] [address] [place] [address] 02/11/2024 08:29:49 02/11/2024 09:45:27 Morbid obesity 460119651 E66.01 BMI 42.4 -7.5# [id number] Remi Dia, [facility] [address] [facility] [address] [place] [address] 02/24/2024 08:01:48 02/24/2024 15:23:37 Hypothyroidism 01313569 E03.9 Polycystic ovary syndrome 156461582 E28.2 Restless l egs syndrome 99408427 G25.81 Vitamin D deficiency 347 50460 E55.9 Heartburn 80499791 R12 Robotic RNY bypass/HHR (GERD) All Risks, Complicati ons and Alternativ es were explained to the patient. They understand that there are many possible complicati ons that may occur with bariatric surgery including but not limited to; bleeding, infection, staple line leak, injury to solid organ, injury to bowel, injury to bladder, injury to blood vessel, pneumonia, DVT, PE, , cardiac event, stricture, ulcer, non-healin g of the staple line. They also understand that terminal gauger supervisor they may develop some of these problems as well as the risk of vitamin deficienci es, malnutriti on and this may require further surgery or interventi onal procedures such as feeding tubes or re-operati on for their healing. They have also been given an extensive surgical consent that explains these risks and complicati ons and have acknowledg ed and signed that they understand these. They understand Weight loss surgery is a tool and that compliance is mandatory to not only be successful but to give them the best chance to avoid complicati ons. They understand they must keep all recommende d office follow up appointmen ts and laboratory checks Pre-surger y evaluation 546744322 Z01.818 Continue current PPI therapy Postoperative pain 16982 9007 G89.18 Continue current PPI therapy Morbid obesity 159298346 E66.01 [id number] VIRGILIO IRAHETA, KATIE [facility] [address] [facility] [address] [place] [address] 04/22/2024 09:16:29 04/22/2024 10:13:55 Intentional weight loss 148273988 R63.8 History of bypass of stomach 292359131 Z98.84 We discussed diet and the importance of adequate protein. Encouraged patient to continue focus on adequate protein/ca lories/hyd ration. Patient is to see dietitian today for typical 1 month postoperat gabo dietary support.Co ntinue PPI and vitamins.E ncouraged routine exercise. Advised exercising such that maintain target HR x 20 min 3dy/wkFoll ow-up 2 months we discussed the importance of regular follow-up visits in office. Patient has not been seen since surgery, which was 6 weeks ago. Patient missed essential one-week postoperat gabo education. Vitamin D deficiency 347 39674 E55.9 Polycystic ovary syndrome 247791984 E28.2 Hypothyroidism 32930040 E03.9 Anxiety 61164562 F41.9 Morbid obesity 446966728 E66.01 Hyperlipidemia 62839927 E78.5 Nausea and vomiting 1693 1999 R11.2 Patient does report she frequently has to vomit after 2-3 bites of her meals. Encouraged patient to eat small meals every 2 hours and optimize protein as well as calorie intake. Patient's protein intake should be around 70-90 g daily and calorie intake should be around 1000 daily. we discussed correlatio n between low protein and calorie intake and food aversion /nausea and vomiting. Patient will get 1 L IV fluids today in office. Patient met with dietitian and told dietitian that she thinks she would feel better if she got some IV fluids . Patient looks well during today's visit and does not appear to be dehydrated at time of assessment . Patient's vital signs are stable. Will order UGI to determine if there are any structural abnormalit ies related to Valente-en-Y gastric bypass. Mild dehydration 1286283 119 108 E86.[id number], LD [facility] [address] [facility] [address] [place] [address] 04/22/2024 10:07:11 04/22/2024 12:53:54 Morbid obesity 502207856 E66.01 BMI 40.1 wt loss -18# [id number] Karri Turner, DNP, DIRECTOR LIFE SCIENCES, SECURITIES TRADER-C [facility] [address] [place] [address] [address] [place] [address] 06/15/2024 08:53:53 06/15/2024 13:34:46 History of bariatric surgical procedure 108046377 Z98.84 Advised qid intake 50% protein 8447-5129 calories/d y less than 100 carbs/dyLo ng discussion today of InBody results including PBF(percen t body fat) SMM (skeletal muscle mass) Visceral fat level level BMR Segmental Fat Analysis and Segmental Lean Analysis. Patient encouraged pt to take minimal calories as per BMR and to anticipate changes in SMM and PBF values not just total weight. [facility]. Dialogue content in great detail regarding the benefits of proper diet as well as regular and routine exercise. In regards to exercise, we discussed reaching target heart rate for least 20 minutes 3 times a week. We also highlighte d the importance of staying well hydrated. Proper handwashin g was also encouraged . Patient was advised to keep in close contact with their primary care provider and/or any specialty provider (s). Vomiting 942711843 R11.1 0 Nausea 760424705 R11.0 Stricture of esophagus 01257666 K22.2 will proceed with EGD with probable dilatation . Mild dehydration 9621787 119 108 E86.0 Will give patient 1 L of IV fluids. Will also provide her with a B1 and B12 injection. [id number] VIRGILIO IRAHETA NP [facility] [address] [facility] [address] [place] [address] 08/10/2024 14:37:58 08/10/2024 15:40:14 Intentional weight loss 005289152 R63.8 History of bypass of stomach 086840534 Z98.84 Fatigue 52186146 R53.83 Will order labs today to assess for reasons for fatigue. Patient does have decent protein and fluid intake, therefore I do not have concerns about dehydratio n at today's visit. Patient will get B12 and B1 shot in office today. Patient to follow-up in office in 1 month for official six-month postop visit. [id number] VIRGILIO IRAHETA NP [facility] [address] [facility] [address] [place] [address] 10/05/2024 13:02:13 10/05/2024 14:59:08 Nausea 674518114 R11.0 patient is requesting refill of Zofran. We will send this into patient's pharmacy. Patient was encouraged to eat small meals every 2 hours to improve nausea symptoms. Abdominal pain 25122334 R10.9 I suspect patient may be constipate d, which is contributi ng to her nausea and abdominal pain. We will do abdominal x-ray to assess further. Depending on results, patient may require CT or upper GI. History of gastrectomy 958838960 Z90.3 Advised qid intake 50% protein 8165-4682 calories/d y less than 100 carbs/dyLo ng discussion today of InBody results including PBF(percen t body fat) SMM (skeletal muscle mass) Visceral fat level level BMR Segmental Fat Analysis and Segmental Lean Analysis.E ncouraged pt to take minimal calories as per BMR and to anticipate changes in SMM and PBF values not just total weight. Follow-up with Repeat SHYANNE in 3mth suggested Patient is status post bariatric surgery and at increased risk for vitamin deficienci es and malnutriti on. Bariatric vitamin panel ordered today. Patient will be contacted to correct any vitamin deficienci es. At [facility] risk of nutritional deficit 258837791 Z91.89 Fatigue 19215724 R53.83 patient continues to suffer from fatigue. This is likely due to low protein and calorie intake. Patient was encouraged to eat small meals every 2 hours. Patient to receive B12 and B1 injections in office today. [id number] SHONDA MELISSA RD, LD [facility] [address] [place] [address] 10/05/2024 14:26:04 10/05/2024 14:43:21 Morbid obesity 618769948 E66.01 BMI 37.1 wt loss -36.4# Health Concerns Section Related Observation LastModified by Organization Detai ls LastModified Time None Recorded Concern Status LastModified by Organization Details LastModified Time None Recorded Advance Directives Directive N: Payers Insurance Date Sequence Insurance Name Policy Number Policy Arellano Covered Member ID Arellano Member ID Guarantor Name 06/04/2024 1 [employer] [facility] (MEDICAID HM) Andrew Nieves [id number] Andrew Nieves 01/03/2025 1 [place]: [place] - MEDICA[place] (HMO) [id number] Andrew Nieves [id number] Andrew Nieves Notes Date Note Type Note Provider Name and Address Organization Details Recorded Time 04/22/20 24 text/htm l ROS as noted in the HPI Patient presents the office today for Six week follow-up status post revision of sleeve gastrectomy to Valente-en-Y gastric bypass on 03/10/2024. patient has not been seen since surgery. Patient Reports she has not doing well. she has been experiencing frequent nausea and vomiting. For example, she ate chicken salad yesterday and vomited with 2-3 bites. She reports occasionally it feels as if something is stuck in her esophagus. She denies any pain with this. Reports q.i.d. small meal intake. Reports <50g/dy protein intake and not currently tracking water intake and is unsure how much she is getting daily. Daily Calories not currently trackingTaking routine vitamins as advised. Hx of vitamin-D deficiencyHeartburn/gastroes ophageal reflux: denies on PPIPt Denies : abdominal pain, bowel or bladder issuesTotal Weight loss 18.3 lb since MD consult visit on 4Pt is happy with their quality of life after Weight loss Surgery. ROCKY IRAHETA, KATIE [address] , [place], [address], [facility] & [place] 04/22/2024 12:52:03 04/22/20 24 text/htm l ADIME TemplateA: RDN met w/Andrew Nieves for 1 mo (6 wk)f/up via office visit s/p RNY. Pt weight at MD Consult: 259.2#Current Weight: 241#Total Weight Change: -18##Notes on weight: Signs/SymptomsN/V/C/D: N/V Pertinent Labs/Meds/Vitamin regimen: patient taking vitamins as recommended Physical activity: walking Tracking food/beverages consumed: Est. daily kcal intake: <500kcal Est. daily protein intake:<50 gm Est. daily fluid intake: less than 2 bottles of water for past 2 weeks Meal Pattern: Additional notes/concerns: Patient feels she is dehydrated. She has been vomiting with protein drinks to chicken salad. Discussed getting fluids today and to eat 6 small meals a day. Patient is scheduled for an upper GI I: RDN Recommendations/Goals:1. Eat 6 times a day2. Set timers as reminders to eat and drink3. Start with stage 2 and try to advance diet from there4. Track intake Pt verbally agreed to recommendations and goals. Denied further questions/concerns. M/E: RDN will monitor weight loss, labs, and lifestyle modifications. Will f/up as scheduled or PRN. . SHONDA MELISSA RD, LD [address] [place], [address], [place] - [facility] - [place] & [place] 04/22/2024 12:34:01 06/15/20 24 text/htm l SOPHIA as noted in the HPI Patient presents the office today for an acute follow-up status post bariatric gastric sleeve gastrectomy surgery ( 2016 ). She is a transfer of care patient. Revision of sleeve gastrectomy to Valente-en-Y gastric bypass on 4Patient doing well. Reports q.i.d. small meal intake. Reports 90g/dy protein intake and good hydration.Patient is drinking 40-64 ounces of water a day.Daily Calories has not been countingTaking routine vitamins as advised. Hx of Vit D deficiencyHeartburn/gastroes ophageal reflux: deniesPt Denies : abdominal pain, prandial issues bowel or bladder issues. Has had issues with both nausea and vomiting. She tells me issue started roughly Thursday night around 10:00 p.m.. She was eating a piece of string cheese she treated up very well but she felt it get stuck in her throat. She ended up having to throw up. Since then she has not been able to keep any food or fluids down. She did not eat anything yesterday. She has not had anything this morning. She had a stricture before and just recently had EGD with Dr. Sandoval in April. It was recommended that she have a repeat EGD with dilatation.Total Weight loss Since last office visit has been 30.1 lbsPt is happy with their quality of life after Weight loss Surgery. Today's InBody reveals a skeletal muscle mass = 63.9 lb,body fat mass = 112.9 lb,BMI = 38.1Percent body fat = 49.3Basal Metabolic Rate = 1509 kilo calories [facility] - Post Procedure NoteGeorCommonwealth Regional Specialty HospitalName Romando Andrew Jarod Date of Service 0820 [id number] (F)Attending DIOGO CHEN Admitted [id number] jessica NORWOOD - / [id number] sophagogastroduodenoscopyPer formed by DIOGO MABLE PHYPre-Procedure DiagnosisVomitingHistory of bariatric surgical procedurePost- Procedure DiagnosisHistory of bariatric surgical procedureVomitingProcedure Description / FindingsIndications: This is a 43 year old female with a history of Valente-en-Y gastric bypass approximately 7 weeks ago. Theypresents to us for Nausea, vomiting, PO. Intolerance which has been progressive since the time of her surgery whichwas a sleeve conversion to Valente-en-Y gastric bypass approximately 6-7 weeks ago. They are here today for upperendoscopy.Operation: After all risks, complications and alternatives were explained to the patient and agreed upon writteninformed consent was obtained for the patient and the patient was properly identified in the preoperative holdingarea. The patient was taken to the endoscopy suite for the initiation of the procedure. Bite block was placed in theoral cavity and the endoscope was advanced transorally. The scope was advanced through the esophagus into the gastricpouch and to the level of the gastrojejunal anastomosis. The anastomosis was noted to be approximately 7-8 mm andstrictured. The Valente limb could be visualized however the scope could not be traversed. An 8-10 mm dilation balloonwas chosen and, under direct visualization, the balloon was guided down the Valente limb and dilated to 8 mm withminimal resistance then to 9 mm with moderate resistance. Resistance was held for 1 minute. The balloon was thendilated to 10 mm. The balloon was deflated and the mucosa was inspected and noted to be with mild irritation asexpected post dilation. The scope was then able to be traversed across the anastomosis however the anastomosisremained strictured. Next a 10-12 mm balloon was chosen and the same procedure was completed with the balloonincrementally inflated to 12 mm and held with the pressure for 2 minutes. Finally, a 12-15 mm balloon was chosen andonce again was incrementally dilated 15 mm, pressure held, and the balloon deflated. The mucosa was inspected andagain noted to have mild to moderate irritation as expected post dilation without concerns. Hemostasis was ensured.The Valente limb was then able to be investigated fully without resistance at the anastomosis. The Valente limb showednormal healthy mucosa without other significant findings. The scope was withdrawn back up to the level of theanastomosis showing anastomosis now open to 15 mm with hemostasis ensured. The pouch was evaluated which showed ahealthy-appearing 6 cm gastric pouch without significant abnormalities or cause for concern. The GE junction anddistal esophagus was evaluated showing normal healthy mucosa without concern. 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 Stricture was dilated from approximately 8mm up to 15 mm. We will see the patient back in clinic and if her symptoms continue we will schedule her for repeatendoscopy in 2-4 weeks for further dilation to ultimately hopefully achieve 15-20 mm at the anastomosis Karri Turner, DNP, DIRECTOR LIFE SCIENCES, SECURITIES TRADER-C [address], [place], [address], [facility] & [place] 06/15/2024 11:34:53 08/10/20 24 text/htm l ROS as noted in the HPI patient is 44-year-old female who is 5 month s/p revision of sleeve gastrectomy to Valente-en-Y gastric bypass on March 10 2025. Patient reports most days she is able to get around 70-90g protein daily. Patient is not currently tracking calories. She does report she is able to get 64 oz p.o. fluid daily. Patient is concerned because she is experiencing increased fatigue over the last couple of weeks. She reports falling asleep on the way home from work. Patient is taking Herman balance multivitamin with iron. She is not taking B complex at this time as it makes her nauseous. Patient is worried she has iron deficiency as she has struggled with this in the past, even prior to bariatric surgery. Patient does report heavy menses. ROCKY IRAHETA, KATIE [address], [place], [address], [facility] & [place] 08/10/2024 15:37:04 10/05/20 24 text/htm l ROS as noted in the HPI Patient Is 44-year-old female, who presents the office today for six-month follow-up status post revision of sleeve gastrectomy to Valente-en-Y gastric bypass on March 10 2025. Patient doing well. Reports q.i.d. small meal intake. Reports 60g/dy protein intake and at least 64 oz p.o. fluid daily. Daily Calories not currently trackingTaking routine vitamins as advised. Hx of iron deficiencyHeartburn/gastroes ophageal reflux: denies. on PPIPt Denies : Vomiting, bowel or bladder issues. patient also has complaints today about not having full sensation since surgery As well as some umbilical pain.Total Weight loss 6.3 lb since last office visit on 06/15/2024. Of this, patient has gained 1.1 lb skeletal muscle mass and lost 2.3% body fat. Today's In[employer] reveals a skeletal muscle mass = 65 lbbody fat mass = 104.9 lbBMI = 37.1Percent body fat = 47%Basal Metabolic Rate = 1526 [address], [employer] [address] , [place], [address], [facility] - [place] & [place] 10/10/2024 09:46:01 10/05/20 24 text/htm l ADIME TemplateA: JACKYN met w/Andrew Nieves for 6 mo f/up via office visit s/p RNY. Pt weight at MD Consult: 259.2#Current Weight: 222.8#Total Weight Change: -36.4#Notes on weight: Signs/SymptomsN/V/C/D: nausea, constipation Pertinent Labs/Meds/Vitamin regimen: taking vitamins as recommended Physical activity: walking Tracking food/beverages consumed: Est. daily kcal intake: not tracking Est. daily protein intake: 50 gm Est. daily fluid intake: 64 oz Meal Pattern: Eating 3 times a day Additional notes/concerns: Patient has pain across the bottom of stomach when she eats. Possible constipation. Patient is scheduled for xray. Patient has gained muscle mass so appears to be getting adequate kcal and protein I: RDN Recommendations/Goals:1. Eat 4-5 times a day2. Keep food records to track kcal and fiber intake3. Work toward 65 gm pro, <100 gm carb, 30-40 gm fat, 25-30 gm fiber and 64 oz fluids4. Physical activity 3 times a week for 20 min Pt verbally agreed to recommendations and goals. Denied further questions/concerns. M/E: RDN will monitor weight loss, labs, and lifestyle modifications. Will f/up as scheduled or PRN. . SHONDA MELISSA RD, LD [address], [place], [address], [facility] - [place] & [place] 10/05/2024 14:43:05 OBGyn Episode No OBEpisode recorded.
--- NOTE | 2025-09-03 19:30 | CT_ITS ---
PROCEDURE INFORMATION: Exam: CT Abdomen And Pelvis With Contrast Exam date and time: 09/03/2025 9:02 PM Age: 45 years old Clinical indication: Abdominal pain; Additional info: Abd pain, n, HX of gastric sleeve and lapband TECHNIQUE: Imaging protocol: Computed tomography of the abdomen and pelvis with contrast. Radiation optimization: All CT scans at this facility use at least one of these dose optimization techniques: automated exposure control; mA and/or kV adjustment per patient size (includes targeted exams where dose is matched to clinical indication); or iterative reconstruction. Contrast material: ISOVUE; Contrast volume: 75 ml; Contrast route: IV; COMPARISON: US OB BIOPHYSICAL PROFILE 10/15/2022 8:02 AM FINDINGS: Tubes, catheters and devices: None noted. Lungs: Lung bases appear clear. Heart: No significant coronary calcifications. No cardiomegaly. No significant pericardial effusion. Liver: Normal. No mass. Gallbladder and biliary ducts: Normal. No calcified stones. No ductal dilation. Pancreas: Normal. No ductal dilation. Spleen: Normal. No splenomegaly. Adrenal glands: Normal. No mass. Kidneys and ureters: Normal. No hydronephrosis. Stomach and bowel: Gastric bypass. No obstruction. No mucosal thickening. Appendix: No evidence of appendicitis. Intraperitoneal space: Unremarkable. No free air. No significant fluid collection. Retroperitoneal space: No significant retroperitoneal inflammatory changes are noted. Vasculature: Unremarkable. No abdominal aortic aneurysm. Lymph nodes: Unremarkable. No enlarged lymph nodes. Urinary bladder: Unremarkable as visualized. Reproductive: 4.6 cm right ovarian complex cystic mass. Bones/joints: Unremarkable. No acute fracture. Soft tissues: Anterior left midline infraumbilical trocar hernia in the pelvis contains small bowel without obstruction. IMPRESSION: 1. Anterior left midline infraumbilical trocar hernia in the pelvis contains small bowel without obstruction. 2. 4.6 cm right ovarian complex cystic mass. Consider sonogram for further evaluation. 3. Gastric bypass.
[2025-09-03 19:40] LABS: Microscopic, Urine URINE MICROSCOPIC (MICROSCOPIC)
[2025-09-03 19:42] LABS: Hematocrit 38.9 % (37.0-47.0); Hemoglobin 12.6 g/dL (12.2-16.2); Immature Granulocytes % 0.2 %; Mean Corpuscular HGB Conc 32.4 g/dL (31.8-35.4); Mean Corpuscular Hemoglobin 27.8 pg (27.0-31.2); Mean Corpuscular Volume 85.7 fl (81-99); Nucleated Red Blood Cells % 0 %; Platelet Count 288 K/mm3 (142-424); Red Blood Count 4.54 M/mm3 (4.20-5.40); Red Cell Distribution Width-SD 39.8 fL; White Blood Count 6.5 K/mm3 (4.8-10.8)
[2025-09-03 19:44] LABS: Bilirubin,Urine Negative (Negative); Color,Urine YELLOW (Yellow); Glucose,Urine (UA) Negative (Negative); Ketones,Urine Negative (Negative); Leukocyte Esterase,Urine Negative (Negative); PH,Urine 5.5 (5.0-8.5); Protein,Urine Negative (Negative); Specific Gravity, Urine <= 1.005 (1.005-1.030); Urobilinogen,Urine 0.2 EU/dl (0.2)
[2025-09-03] MEDS: ONDANSETRON 4MG/2ML VIAL 4 MG IV (19:46)
[2025-09-03 19:47] LABS: Albumin Level 4.5 g/dl (3.5-5.0); Chloride 99 mmol/L (98-107); Potassium 3.9 mmoL/L (3.5-5.1); Sodium 136 mmol/L (136-145)
[2025-09-03 19:50] LABS: Alanine Aminotransferase 29 U/L (12-78); Albumin/Globulin Ratio 1.5 (1.1-1.8); Alkaline Phosphatase 64 U/L (38-126); Anion Gap 12.9 mEq/L (5-15); Aspartate Amino Transferase 36 U/L (14-36); Bilirubin,Total 0.3 mg/dl (0.2-1.3); Blood Urea Nitrogen 8 mg/dl (7-17); Carbon Dioxide 28 mmol/L (22.0-30.0); Creatinine Clearance Estimated 168 mL/min (50-200); Creatinine,Serum 0.70 mg/dl (0.52-1.04); Estimated Glomerular Filt Rate 91 ml/min (>60); GFR (African American) 111 ML/MIN (>60); Globulin 3.1 g/dL (1.3-3.2); Lipase 57 U/L (23-300); Total Protein,Serum 7.6 g/dl (6.3-8.2)
[2025-09-03] MEDS: MORPHINE 4MG/ML SYRINGE 4 MG IV (19:50)
[2025-09-03 19:51] LABS: Calcium 8.7 mg/dl (8.4-10.2); Glucose 70 mg/dl (74-100)
--- NOTE | 2025-09-03 19:52 | PC.NURSE ---
Administered medication to patient 4mg of Zofran, and 4mg of Morphine. Medication was discarded and not scanned off. A second vial was pulled from the [facility] and patient bracelet was rescanned to verify the patient and medication was scanned off.
[2025-09-03 20:00] LABS: NT Pro Brain Natriuretic Pep. 20.3 pg/mL (0-125)
[2025-09-03 20:03] LABS: Troponin I < 0.01 ng/ml (0.00-0.034)
[2025-09-03] MEDS: DEXTROSE 15GM PACKET 15 GM PO (20:04)
--- NOTE | 2025-09-03 20:26 | ECG_ITS ---
APPROVED REPORT Exam: Resting ECG HR:73 bpm ECG Measurements Heart Rate 73 AXES NJ 167 P 65 QRSd 78 QRS 12 QT 399 T 62 QTc 426 Conclusion SINUS RHYTHM SEPTAL MYOCARDIAL INFARCTION , PROBABLY OLD [40+ ms Q WAVE IN V1/V2] ABNORMAL ECG UNCONFIRMED REPORT Electronically signed by : ANTONIO SHEN, 09/05/2025 02:49:58
[2025-09-03 20:44] LABS: Squamous Epithelial Cell,Urine Occasional #/hpf (0-5)
[2025-09-03 20:45] LABS: Bacteria,Urine Trace /lpf
--- NOTE | 2025-09-03 20:57 | PC.NURSE ---
FSBS obtained due to BGL on lab result of 70. FSBS was 116
--- NOTE | 2025-09-03 20:58 | PC.NURSE ---
Pt to CT by wheelchair
[2025-09-03 21:03] LABS: POC Glucose,Bedside 116 gm/dL (70-110)
[2025-09-03] MEDS: SODIUM CHLORIDE 0.9% 10ML SYR (RAD ONLY) 10 ML IV (21:03)
[2025-09-03] MEDS: IOPAMIDOL-370 (76%);100ML BOTTLE 75 ML IV (21:03)
--- NOTE | 2025-09-03 21:06 | PC.NURSE ---
Pt returns from ct.
--- NOTE | 2025-09-03 22:27 | US_ITS ---
PROCEDURE INFORMATION: Exam: US Duplex Artery and Vein of the Abdominal and/or Reproductive Organs. Complete Ovaries Exam date and time: 09/03/2025 10:50 PM Age: 45 years old Clinical indication: Pelvic pain; Prior surgery; Surgery date: 6+ months; Surgery type: ; Additional info: Large right ovarian cyst/mass rule out torsion TECHNIQUE: Imaging protocol: Real-time duplex ultrasound scan of the arterial and venous flow with color Doppler flow and spectral waveform analysis with image documentation. Duplex exam was performed to evaluate for torsion and other vascular conditions. COMPARISON: CT ABDOMEN PELVIS W CON 09/03/2025 9:02 PM FINDINGS: Right ovary/adnexa: Present Doppler waveforms and color flow. Arterial and venous flow are present. Left ovary/adnexa: Present Doppler waveforms and color flow. Arterial and venous flow are present. IMPRESSION: Flow is present in the ovaries bilaterally. See below report for adnexal lesion. PROCEDURE INFORMATION: Exam: US Pelvis, Transvaginal, Non-Obstetric Exam date and time: 09/03/2025 10:50 PM Age: 45 years old Clinical indication: Pelvic pain; Prior surgery; Surgery date: 6+ months; Surgery type: ; Additional info: Large right ovarian cyst/mass rule out torsion TECHNIQUE: Imaging protocol: Real-time transvaginal pelvic (non-obstetric) ultrasound with image documentation. Transvaginal imaging was used for better evaluation of the endometrium, adnexa, and/or cervix. COMPARISON: CT ABDOMEN PELVIS W CON 09/03/2025 9:02 PM FINDINGS: Uterus: Endometrial stripe measures 1.2 cm. Right ovary/adnexa: 4.5 x 3.0 cm right ovarian predominantly cystic lesion demonstrating low-level echoes and peripheral solid components measure up to 1.6 cm. Present flow within the ovary. Left ovary/adnexa: Present ovarian blood flow. Urinary bladder: not well seen Intraperitoneal space: No free fluid. IMPRESSION: 4.5 x 3.0 cm right ovarian predominantly cystic lesion demonstrating low-level echoes and peripheral solid components measure up to 1.6 cm. This is suspicious for malignancy. Recommend gas distribution and emergency clerk consult. Further evaluation with MR may be helpful.
[2025-09-03] MEDS: KETOROLAC 15MG/ML VIAL 15 MG IV (22:49)
[2025-09-03 22:54] VITALS: BP 142/91; PULSE 58; O2SAT 100
[2025-09-03 23:30] VITALS: BP 112/79; PULSE 64; O2SAT 100
[2025-09-04] VITALS: BP 134/96; PULSE 74; O2SAT 100
[2025-09-04 00:15] VITALS: PULSE 62; O2SAT 100
[2025-09-04 00:30] VITALS: BP 99/56; PULSE 80; O2SAT 100
[2025-09-04] MEDS: ACETAMINOPHEN 500MG TAB 1000 MG PO (00:37)
[2025-09-04] MEDS: OXYCODONE 5MG IMMEDIATE RELEASE TABLET 5 MG PO (00:37)
[2025-09-04] MEDS: LACTATED RINGERS 1000ML 1,000 ML 999 ML IV (00:37)
[2025-09-04 00:45] VITALS: PULSE 76; O2SAT 100
[2025-09-04 01:00] VITALS: BP 107/70; PULSE 76; O2SAT 100
[2025-09-04 01:24] VITALS: BP 170/70; PULSE 76; RESP 16; TEMP 37.1; O2SAT 100
== END 2025-09-04 01:26 | disposition home or self-care (01) ==
PROVIDERS: Physician Assistant; Emergency Provider Student in an Organized Health Care Education/Training Program
DX: R10.84 Generalized abdominal pain (principal); N83.291 Other ovarian cyst, right side; E16.2 Hypoglycemia, unspecified; R11.0 Nausea; R51.9 Headache, unspecified; F17.210 Nicotine dependence, cigarettes, uncomplicated
CPT/HCPCS: 74177; 76830; 80053; 81001; 82962; 83605; 83690; 83880; 84484; 85025; 93005; 96361; 96374; 96375; 99285; J1885; J2270; J2405; J7120; Q9967